=== PATIENT | female | born 1965 | race Hispanic/Latino ===

== ENCOUNTER 2020-09-29 12:54 | Inpatient (IN) | payer MEDICAID, SELFPAY ==
[~2020-09-29] VITALS: Ht 160 cm; Wt 109.6 kg
[2020-09-29] MEDS ORDERED: AZITHROMYCIN 250 MG TABLET PO ONE ×2 (13:30→14:47)
[2020-09-29] MEDS ORDERED: ALBUTEROL INHALER 90MCG/INH IH PRN (13:30)
[2020-09-29] MEDS ORDERED: ACETAMINOPHEN WITH CODEINE 1 TAB TAB PO ONE (13:30)
[2020-09-29] MEDS ORDERED: CEFTRIAXONE 1G VIAL IVP ONE (13:30)
[2020-09-29 13:33] LABS: BASOPHILS % (AUTO) 0.2 % (0.0-5.0); HEMATOCRIT 37.9 % (36-48); LYMPHOCYTES % (AUTO) 14.1 % (21.0-51.0); MEAN CORPUSCULAR HEMOGLOBIN 29.8 pg (27.0-33.0); MEAN CORPUSCULAR HGB CONC 33.8 g/dL (32.0-36.0); MEAN CORPUSCULAR VOLUME 88.3 fL (79-99); NEUTROPHILS % (AUTO) 78.4 % (40.0-77.0); PLATELET COUNT (AUTO) 142 K/uL (130-400); RED BLOOD CELL COUNT(AUTO) 4.29 MIL/uL (4.00-5.50); RED CELL DISTRIBUTION WIDTH 13.5 % (11.0-15.5); WHITE BLOOD COUNT (AUTO) 6.6 K/uL (4.8-10.8)
[2020-09-29 13:40] LABS: POTASSIUM 3.5 mmol/L (3.5-5.1)
[2020-09-29 13:42] LABS: INR 1.04 (0.85-1.15); PROTHROMBIN TIME 11.3 SEC (9.6-11.6)
[2020-09-29 13:43] LABS: PARTIAL THROMBOPLASTIN TIME 31.3 SEC (26.3-35.5)
[2020-09-29 13:45] LABS: ALBUMIN 3.2 g/dL (3.5-5.0); BILIRUBIN,TOTAL 0.6 mg/dL (0.2-1.0); TOTAL PROTEIN, SERUM 6.7 g/dL (6.0-8.3)
[2020-09-29] MEDS ORDERED: ATROPINE 1MG SYG IVP ONE (14:14)
[2020-09-29 14:29] LABS: ABG BASE EXCESS -0.7 mmol/L (-2.0-3.0); ABG HCO3 20.7 mmol/L (21.0-28.0); ABG OXYGEN SATURATION 88.4 % (95.0-99.0); ABG PCO2 27 mmHg (32-45)
[2020-09-29] MEDS ORDERED: ACETAMINOPHEN WITH CODEINE 1 TAB TAB ONE (14:36)
[2020-09-29] MEDS ORDERED: 0.9%NACL 100ML 100 ML ONE ×2 (14:36→14:46)
[2020-09-29] MEDS ORDERED: CEFTRIAXONE 1G VIAL ONE (14:45)
[2020-09-29] MEDS ORDERED: ACETAMINOPHEN 325 MG TAB PO PRN (15:00)
[2020-09-29] MEDS ORDERED: ERGOCALCIFEROL (VITAMIN D2) 50,000 UNIT CAPSULE PO ONE (15:00)
[2020-09-29] MEDS ORDERED: ONDANSETRON 4MG INJ IV PRN (15:00)
[2020-09-29] MEDS: CEFTRIAXONE 1G VIAL ONE ×2 (15:18→16:29)
[2020-09-29] MEDS: CEFTRIAXONE 1G VIAL IVP SCH (16:24)
[2020-09-29] MEDS: DOXYCYCLINE HYCLATE 100 MG TABLET PO SCH (16:28)
[2020-09-29] MEDS: FAMOTIDINE 20MG VIAL IV SCH (16:28)
[2020-09-29] MEDS: DEXAMETHASONE SOD PHOSPHATE 4 MG/ML 1ML VIAL IVP SCH (16:28)
[2020-09-29] MEDS ORDERED: DOXYCYCLINE HYCLATE 100 MG TABLET PO ONE (16:31)
[2020-09-29] MEDS ORDERED: FAMOTIDINE 20MG TAB ONE (16:32)
[2020-09-29 17:02] VITALS: BP 113/60
[2020-09-29] MEDS ORDERED: PHARMACY COMMUNICATION***REMDESIVIR ORDER MISC SCH (19:00)
[2020-09-29] MEDS ORDERED: POTASSIUM CHLORIDE 10% ELIXIR 20 MEQ/15 ML UDCUP PO SCH (19:00)
[2020-09-29] MEDS: BARICITINIB (EUA) 2 MG TABLET PO SCH (19:38)
[2020-09-29 20:10] VITALS: BP 113/60
[2020-09-29 20:26] LABS: APPEARANCE,URINE SL CLOUDY (CLEAR); BILIRUBIN,URINE SMALL (NEGATIVE); COLOR,URINE YELLOW (YELLOW); GLUCOSE, URINE (UA) NEGATIVE (NEGATIVE); KETONES,URINE 15 mg/dL (NEGATIVE); LEUKOCYTE ESTERASE ,URINE NEGATIVE (NEGATIVE); NITRATE,URINE POSITIVE (NEGATIVE); OCCULT BLOOD,URINE SMALL (NEGATIVE); PH,URINE 6.5 (5.0-8.0); PROTEIN,URINE >=300 mg/dL (NEGATIVE)
[2020-09-29 20:33] LABS: BACTERIA,URINE Few /HPF (None Seen)
[2020-09-29 20:34] LABS: SQUAMOUS EPITHELIAL CELL,UR Moderate /HPF (0-2)
[2020-09-29 20:35] LABS: MUCUS,URINE Rare LPF (None Seen); OTHER CASTS, URINE MIXED CELL CASTS 1+ /LPF (None Seen)
[2020-09-29 21:28] VITALS: BP 115/63
[2020-09-30 00:04] VITALS: BP 115/63
[2020-09-30] MEDS: CEFTRIAXONE 1G VIAL IVP SCH (02:56)
[2020-09-30 06:11] VITALS: BP 119/71
[2020-09-30] MEDS ORDERED: COMPOUND IV REFRIGERATED 1 EACH IVSOLN MISC PRN (07:30)
[2020-09-30] MEDS ORDERED: REMDESIVIR (EUA) 520 200 MG in 0.9% NACL 250ML 250 ML IV ONE (07:30)
[2020-09-30 07:40] VITALS: BP 141/72
[2020-09-30 08:00] LABS: CRP QUANTITATIVE 113.6 mg/L (0.00-9.0)
[2020-09-30] MEDS: FAMOTIDINE 20MG VIAL IV SCH ×2 (08:56→21:46)
[2020-09-30] MEDS: BARICITINIB (EUA) 2 MG TABLET PO SCH (08:57)
[2020-09-30] MEDS: DOXYCYCLINE HYCLATE 100 MG TABLET PO SCH (08:57)
[2020-09-30] MEDS: ENOXAPARIN SODIUM 40 MG/0.4 ML SYRINGE SQ SCH ×2 (08:59→21:47)
[2020-09-30] MEDS ORDERED: ENOXAPARIN SODIUM 40 MG/0.4 ML SYRINGE SQ SCH (09:00)
[2020-09-30] MEDS ORDERED: ZINC SULFATE 220 CAPSULE PO SCH (09:00)
[2020-09-30] MEDS ORDERED: ASCORBIC ACID 500 MG TAB PO SCH (09:00)
[2020-09-30 09:36] LABS: HEMATOCRIT 36.4 % (36-48); LYMPHOCYTES % (AUTO) 19.6 % (21.0-51.0); MEAN CORPUSCULAR HEMOGLOBIN 29.7 pg (27.0-33.0); MEAN CORPUSCULAR HGB CONC 33.2 g/dL (32.0-36.0); MEAN CORPUSCULAR VOLUME 89.4 fL (79-99); MONOCYTES % (AUTO) 9.8 % (3.0-13.0); NEUTROPHILS % (AUTO) 70.1 % (40.0-77.0); PLATELET COUNT (AUTO) 145 K/uL (130-400); RED BLOOD CELL COUNT(AUTO) 4.07 MIL/uL (4.00-5.50); RED CELL DISTRIBUTION WIDTH 13.6 % (11.0-15.5); WHITE BLOOD COUNT (AUTO) 3.9 K/uL (4.8-10.8)
[2020-09-30 09:59] LABS: ALBUMIN 2.8 g/dL (3.5-5.0); BILIRUBIN,TOTAL 0.4 mg/dL (0.2-1.0); MAGNESIUM 1.9 mg/dL (1.80-2.40); POTASSIUM 3.8 mmol/L (3.5-5.1); TOTAL PROTEIN, SERUM 6.9 g/dL (6.0-8.3)
[2020-09-30 12:50] VITALS: BP 112/67
[2020-09-30 20:44] VITALS: BP 121/67
[2020-09-30] MEDS ORDERED: DOXYCYCLINE HYCLATE 100 MG TABLET PO ONE (21:37)
[2020-09-30] MEDS ORDERED: CEFTRIAXONE 1G VIAL ONE (21:39)
[2020-09-30] MEDS: DEXAMETHASONE SOD PHOSPHATE 4 MG/ML 1ML VIAL IVP SCH (21:46)
[2020-09-30 23:00] VITALS: BP 112/50
[2020-09-30] MEDS: REMDESIVIR LABS MISC SCH (23:34)
[2020-10-01] VITALS (8 sets, daily range): BP systolic 99–136; BP diastolic 36–72
[2020-10-01] MEDS ORDERED: ANAS1TAB49 PO (01:23)
[2020-10-01] MEDS ORDERED: PARO10TA71 PO (01:23)
[2020-10-01] MEDS ORDERED: PARO-37 PO (01:23)
[2020-10-01] MEDS ORDERED: PANT40TA54 PO (01:23)
[2020-10-01 05:09] LABS: CRP QUANTITATIVE 67.4 mg/L (0.00-9.0)
[2020-10-01 05:46] LABS: HEMATOCRIT 35.7 % (36-48); LYMPHOCYTES % (AUTO) 13.2 % (21.0-51.0); MEAN CORPUSCULAR HEMOGLOBIN 29.7 pg (27.0-33.0); MEAN CORPUSCULAR HGB CONC 33.6 g/dL (32.0-36.0); MEAN CORPUSCULAR VOLUME 88.4 fL (79-99); MONOCYTES % (AUTO) 6.5 % (3.0-13.0); NEUTROPHILS % (AUTO) 79.4 % (40.0-77.0); PLATELET COUNT (AUTO) 198 K/uL (130-400); RED BLOOD CELL COUNT(AUTO) 4.04 MIL/uL (4.00-5.50); RED CELL DISTRIBUTION WIDTH 13.7 % (11.0-15.5); WHITE BLOOD COUNT (AUTO) 8.5 K/uL (4.8-10.8)
[2020-10-01 05:54] LABS: ALBUMIN 2.7 g/dL (3.5-5.0); BILIRUBIN,TOTAL 0.3 mg/dL (0.2-1.0); POTASSIUM 4.1 mmol/L (3.5-5.1); TOTAL PROTEIN, SERUM 6.6 g/dL (6.0-8.3)
[2020-10-01] MEDS: INSULIN HUMULIN R 100 UNIT/ML 3ML SQ SCH ×4 (06:02→19:46)
[2020-10-01 06:16] LABS: HEMOGLOBIN A1C 5.8 % (4.0-6.0)
[2020-10-01] MEDS: FAMOTIDINE 20MG VIAL IV SCH ×2 (10:44→19:47)
[2020-10-01] MEDS: BARICITINIB (EUA) 2 MG TABLET PO SCH (11:07)
[2020-10-01] MEDS: ENOXAPARIN SODIUM 40 MG/0.4 ML SYRINGE SQ SCH ×2 (11:07→19:47)
[2020-10-01] MEDS: REMDESIVIR (EUA) 520 100 MG in 0.9% NACL 250ML 250 ML IV SCH (13:08)
[2020-10-01] MEDS: DEXAMETHASONE SOD PHOSPHATE 4 MG/ML 1ML VIAL IVP SCH (14:57)
[2020-10-01] MEDS: REMDESIVIR LABS MISC SCH (19:24)
[2020-10-01] MEDS: PAROXETINE HCL 20 MG TABLET PO SCH (19:47)
[2020-10-02 04:00] VITALS: BP 123/72
[2020-10-02 04:17] LABS: BASOPHILS % (AUTO) 0.2 % (0.0-5.0); HEMATOCRIT 36.5 % (36-48); LYMPHOCYTES % (AUTO) 23.1 % (21.0-51.0); MEAN CORPUSCULAR HEMOGLOBIN 29.8 pg (27.0-33.0); MEAN CORPUSCULAR HGB CONC 32.6 g/dL (32.0-36.0); MEAN CORPUSCULAR VOLUME 91.3 fL (79-99); MONOCYTES % (AUTO) 9.4 % (3.0-13.0); NEUTROPHILS % (AUTO) 66.4 % (40.0-77.0); PLATELET COUNT (AUTO) 211 K/uL (130-400); RED CELL DISTRIBUTION WIDTH 13.4 % (11.0-15.5); WHITE BLOOD COUNT (AUTO) 6.4 K/uL (4.8-10.8)
[2020-10-02 04:36] LABS: CRP QUANTITATIVE 34.2 mg/L (0.00-9.0)
[2020-10-02] MEDS: INSULIN HUMULIN R 100 UNIT/ML 3ML SQ SCH ×4 (05:34→20:22)
[2020-10-02 08:09] VITALS: BP 133/77
[2020-10-02] MEDS ORDERED: ARIMIDEX 1 MG PO SCH (09:00)
[2020-10-02] MEDS: FAMOTIDINE 20MG VIAL IV SCH ×2 (10:22→20:22)
[2020-10-02] MEDS: PAROXETINE HCL 20 MG TABLET PO SCH ×2 (10:23→20:22)
[2020-10-02] MEDS: ENOXAPARIN SODIUM 40 MG/0.4 ML SYRINGE SQ SCH ×2 (10:23→20:23)
[2020-10-02] MEDS: BARICITINIB (EUA) 2 MG TABLET PO SCH (10:23)
[2020-10-02 11:51] VITALS: BP 161/89
[2020-10-02] MEDS: REMDESIVIR (EUA) 520 100 MG in 0.9% NACL 250ML 250 ML IV SCH (13:00)
[2020-10-02 16:58] VITALS: BP 144/63
[2020-10-02] MEDS: DEXAMETHASONE SOD PHOSPHATE 4 MG/ML 1ML VIAL IVP SCH (17:12)
[2020-10-02 20:00] VITALS: BP 123/62
[2020-10-03] VITALS: BP 132/99
[2020-10-03] MEDS ORDERED: LINA145C PO (03:20)
[2020-10-03 04:00] VITALS: BP 128/81
[2020-10-03 04:58] LABS: BASOPHILS % (AUTO) 0.1 % (0.0-5.0); HEMATOCRIT 35.3 % (36-48); LYMPHOCYTES % (AUTO) 12.3 % (21.0-51.0); MEAN CORPUSCULAR HEMOGLOBIN 29.6 pg (27.0-33.0); MEAN CORPUSCULAR HGB CONC 33.4 g/dL (32.0-36.0); MEAN CORPUSCULAR VOLUME 88.5 fL (79-99); NEUTROPHILS % (AUTO) 77.7 % (40.0-77.0); PLATELET COUNT (AUTO) 251 K/uL (130-400); RED BLOOD CELL COUNT(AUTO) 3.99 MIL/uL (4.00-5.50); RED CELL DISTRIBUTION WIDTH 13.2 % (11.0-15.5); WHITE BLOOD COUNT (AUTO) 9.1 K/uL (4.8-10.8)
[2020-10-03] MEDS: REMDESIVIR LABS MISC SCH (05:08)
[2020-10-03 05:18] LABS: ALBUMIN 2.7 g/dL (3.5-5.0); BILIRUBIN,TOTAL 0.5 mg/dL (0.2-1.0); CRP QUANTITATIVE 22.5 mg/L (0.00-9.0); POTASSIUM 3.4 mmol/L (3.5-5.1); TOTAL PROTEIN, SERUM 6.2 g/dL (6.0-8.3)
[2020-10-03] MEDS: INSULIN HUMULIN R 100 UNIT/ML 3ML SQ SCH ×4 (06:34→20:09)
[2020-10-03 08:00] VITALS: BP 112/72
[2020-10-03] MEDS: PAROXETINE HCL 20 MG TABLET PO SCH ×2 (08:06→19:58)
[2020-10-03] MEDS: BARICITINIB (EUA) 2 MG TABLET PO SCH (08:06)
[2020-10-03] MEDS: FAMOTIDINE 20MG VIAL IV SCH (08:06)
[2020-10-03] MEDS: ENOXAPARIN SODIUM 40 MG/0.4 ML SYRINGE SQ SCH ×2 (08:07→19:58)
[2020-10-03] MEDS ORDERED: GUAIFENESIN-DM 200/20 MG 10 ML PO PRN (10:30)
[2020-10-03] MEDS ORDERED: HYDROMORPHONE HCL 2 MG TAB PO PRN (10:30)
[2020-10-03 12:00] VITALS: BP 109/63
[2020-10-03] MEDS: REMDESIVIR (EUA) 520 100 MG in 0.9% NACL 250ML 250 ML IV SCH (13:03)
[2020-10-03] MEDS ORDERED: POTASSIUM CHLORIDE 20MEQ/100ML 100 ML IV PRN (13:30)
[2020-10-03] MEDS ORDERED: POTASSIUM CHLORIDE 10% ELIXIR 20 MEQ/15 ML UDCUP PO PRN (13:30)
[2020-10-03] MEDS ORDERED: LIDOCAINE HCL-MPF 1% 2ML VIAL IV PRN (13:30)
[2020-10-03] MEDS ORDERED: MAGNESIUM 2GM PREMIX 50ML 50 ML IV PRN (13:30)
[2020-10-03] MEDS: DEXAMETHASONE SOD PHOSPHATE 4 MG/ML 1ML VIAL IVP SCH (14:45)
[2020-10-03 16:00] VITALS: BP 123/77
[2020-10-03] MEDS: KCL 20 MEQ ERTAB PO PRN ×2 (16:45→19:59)
[2020-10-03 20:00] VITALS: BP 113/56
[2020-10-03] MEDS: ZOSYN 3.375GM+NS 50ML 50 ML IV ONE ×2 (20:33→20:36)
[2020-10-03] MEDS: ZOSYN 3.375GM +NS 50ML IV SCH (20:36)
[2020-10-03] MEDS: 0.9%NACL 50ML IV SCH (20:36)
[2020-10-04] VITALS: BP 148/78
[2020-10-04 04:00] VITALS: BP 138/79
[2020-10-04] MEDS: 0.9%NACL 50ML IV SCH ×3 (04:00→21:45)
[2020-10-04] MEDS: ZOSYN 3.375GM +NS 50ML IV SCH ×3 (04:00→21:45)
[2020-10-04 05:26] LABS: BASOPHILS % (AUTO) 0.1 % (0.0-5.0); HEMATOCRIT 36.6 % (36-48); LYMPHOCYTES % (AUTO) 8.9 % (21.0-51.0); MEAN CORPUSCULAR HEMOGLOBIN 29.9 pg (27.0-33.0); MEAN CORPUSCULAR HGB CONC 33.6 g/dL (32.0-36.0); MEAN CORPUSCULAR VOLUME 88.8 fL (79-99); MONOCYTES % (AUTO) 6.4 % (3.0-13.0); NEUTROPHILS % (AUTO) 83.5 % (40.0-77.0); PLATELET COUNT (AUTO) 267 K/uL (130-400); RED BLOOD CELL COUNT(AUTO) 4.12 MIL/uL (4.00-5.50)
[2020-10-04 05:39] LABS: MAGNESIUM 1.8 mg/dL (1.80-2.40); POTASSIUM 3.8 mmol/L (3.5-5.1)
[2020-10-04] MEDS: INSULIN HUMULIN R 100 UNIT/ML 3ML SQ SCH ×4 (05:51→19:49)
[2020-10-04] MEDS: REMDESIVIR LABS MISC SCH (06:00)
[2020-10-04 06:56] LABS: ALBUMIN 2.7 g/dL (3.5-5.0); BILIRUBIN,DIRECT 0.2 mg/dL (0.0-0.3); BILIRUBIN,TOTAL 0.8 mg/dL (0.2-1.0); TOTAL PROTEIN, SERUM 6.3 g/dL (6.0-8.3)
[2020-10-04 08:00] VITALS: BP 122/63
[2020-10-04] MEDS: BARICITINIB (EUA) 2 MG TABLET PO SCH (09:00)
[2020-10-04] MEDS: PANTOPRAZOLE 40 MG TAB DR PO SCH (09:39)
[2020-10-04] MEDS: PAROXETINE HCL 20 MG TABLET PO SCH ×2 (09:39→19:47)
[2020-10-04] MEDS: ENOXAPARIN SODIUM 40 MG/0.4 ML SYRINGE SQ SCH ×2 (09:40→19:49)
[2020-10-04] MEDS ORDERED: LACTULOSE 20 GM/30 ML UDCUP PO PRN (10:30)
[2020-10-04] MEDS: LACTULOSE 20 GM/30 ML UDCUP PO PRN ×2 (10:32→21:47)
[2020-10-04 12:00] VITALS: BP 114/71
[2020-10-04] MEDS: GLYCERIN ADULT SUPP.RECT RC SCH (12:00)
[2020-10-04 16:00] VITALS: BP 104/74
[2020-10-04] MEDS: REMDESIVIR (EUA) 520 100 MG in 0.9% NACL 250ML 250 ML IV SCH (18:03)
[2020-10-04] MEDS: DEXAMETHASONE SOD PHOSPHATE 4 MG/ML 1ML VIAL IVP SCH (18:03)
[2020-10-04 19:55] VITALS: BP 115/54
[2020-10-05] VITALS (20 sets, daily range): BP systolic 95–154; BP diastolic 21–86
[2020-10-05] MEDS: ZOSYN 3.375GM +NS 50ML IV SCH ×3 (05:38→21:11)
[2020-10-05] MEDS: 0.9%NACL 50ML IV SCH ×3 (05:38→21:11)
[2020-10-05] MEDS: INSULIN HUMULIN R 100 UNIT/ML 3ML SQ SCH ×4 (05:48→21:00)
[2020-10-05] MEDS ORDERED: PHARMACY COMMUNICATION MISC SCH (09:30)
[2020-10-05] MEDS: PAROXETINE HCL 20 MG TABLET PO SCH ×2 (09:49→21:10)
[2020-10-05] MEDS: ENOXAPARIN SODIUM 40 MG/0.4 ML SYRINGE SQ SCH ×2 (09:49→21:11)
[2020-10-05] MEDS: PANTOPRAZOLE 40 MG TAB DR PO SCH (09:49)
[2020-10-05] MEDS: BARICITINIB (EUA) 2 MG TABLET PO SCH (11:22)
[2020-10-05] MEDS: GLYCERIN ADULT SUPP.RECT RC SCH (12:00)
[2020-10-05] MEDS: REMDESIVIR (EUA) 520 100 MG in 0.9% NACL 250ML 250 ML IV SCH (12:24)
[2020-10-05] MEDS: DEXAMETHASONE SOD PHOSPHATE 4 MG/ML 1ML VIAL IVP SCH (14:25)
[2020-10-05] MEDS ORDERED: 0.9%NACL 100ML 100 ML ONE (20:54)
[2020-10-05] MEDS: ACETAMINOPHEN 325 MG TAB PO PRN (21:10)
[2020-10-06] VITALS (20 sets, daily range): BP systolic 100–137; BP diastolic 59–80
[2020-10-06] MEDS: INSULIN HUMULIN R 100 UNIT/ML 3ML SQ SCH ×4 (05:11→21:00)
[2020-10-06] MEDS: 0.9%NACL 50ML IV SCH (05:52)
[2020-10-06] MEDS: ZOSYN 3.375GM +NS 50ML IV SCH (05:52)
[2020-10-06 07:36] LABS: HEMATOCRIT 36.6 % (36-48); MEAN CORPUSCULAR HEMOGLOBIN 29.7 pg (27.0-33.0); MEAN CORPUSCULAR HGB CONC 32.8 g/dL (32.0-36.0); MEAN CORPUSCULAR VOLUME 90.6 fL (79-99); PLATELET COUNT (AUTO) 348 K/uL (130-400); RED BLOOD CELL COUNT(AUTO) 4.04 MIL/uL (4.00-5.50); RED CELL DISTRIBUTION WIDTH 13.9 % (11.0-15.5); WHITE BLOOD COUNT (AUTO) 18.1 K/uL (4.8-10.8)
[2020-10-06 07:45] LABS: MAGNESIUM 2.1 mg/dL (1.80-2.40); POTASSIUM 3.9 mmol/L (3.5-5.1)
[2020-10-06 08:08] LABS: EOSINOPHILS % (MANUAL) 1 % (1-6); LYMPHOCYTES % (MANUAL) 6 % (22-44); SEGMENTED NEUTROPHILS % 93 % (40-70)
[2020-10-06 08:09] LABS: MAN.DIFF COMMENT-IMPRESSION MANUAL DIFFERENTIAL; PLATELET MORPHOLOGY COMMENT ADEQUATE
[2020-10-06] MEDS: PAROXETINE HCL 20 MG TABLET PO SCH ×2 (10:00→22:09)
[2020-10-06] MEDS: PANTOPRAZOLE 40 MG TAB DR PO SCH (10:01)
[2020-10-06] MEDS: BARICITINIB (EUA) 2 MG TABLET PO SCH (10:01)
[2020-10-06] MEDS: ENOXAPARIN SODIUM 40 MG/0.4 ML SYRINGE SQ SCH ×2 (10:01→22:09)
[2020-10-06] MEDS: ACETAMINOPHEN 325 MG TAB PO PRN (10:20)
[2020-10-06] MEDS ORDERED: PHARMACY COMMUNICATION MISC SCH (10:30)
[2020-10-06] MEDS: GLYCERIN ADULT SUPP.RECT RC SCH (11:29)
[2020-10-06] MEDS: LINEZOLID 600 MG/ISO-OSM 300 ML IV SCH ×2 (11:35→22:10)
[2020-10-06] MEDS: FUROSEMIDE 20MG VIAL IV SCH ×2 (11:35→22:10)
[2020-10-06] MEDS: MEROPENEM 1 GM VIAL IVP SCH ×2 (11:35→18:38)
[2020-10-06 12:26] LABS: ALBUMIN 2.5 g/dL (3.5-5.0); BILIRUBIN,DIRECT 0.3 mg/dL (0.0-0.3); BILIRUBIN,TOTAL 0.7 mg/dL (0.2-1.0); TOTAL PROTEIN, SERUM 5.6 g/dL (6.0-8.3)
[2020-10-06] MEDS: REMDESIVIR (EUA) 520 100 MG in 0.9% NACL 250ML 250 ML IV SCH (13:32)
[2020-10-06] MEDS: DEXAMETHASONE SOD PHOSPHATE 4 MG/ML 1ML VIAL IVP SCH (16:44)
[2020-10-06 17:07] LABS: ABG BASE EXCESS 1.2 mmol/L (-2.0-3.0); ABG HCO3 25.3 mmol/L (21.0-28.0); ABG OXYGEN SATURATION 91.2 % (95.0-99.0); ABG PCO2 39 mmHg (32-45)
[2020-10-07] VITALS (20 sets, daily range): BP systolic 86–122; BP diastolic 53–87
[2020-10-07] MEDS: MEROPENEM 1 GM VIAL IVP SCH ×3 (03:08→18:11)
[2020-10-07] MEDS: DEXAMETHASONE SOD PHOSPHATE 4 MG/ML 1ML VIAL IVP SCH ×2 (03:08→14:24)
[2020-10-07 04:27] LABS: BASOPHILS % (AUTO) 0.1 % (0.0-5.0); EOSINOPHILS % (AUTO) 0.1 % (0.0-8.0); HEMATOCRIT 34.2 % (36-48); LYMPHOCYTES % (AUTO) 4.8 % (21.0-51.0); MEAN CORPUSCULAR HEMOGLOBIN 29.9 pg (27.0-33.0); MEAN CORPUSCULAR HGB CONC 33.6 g/dL (32.0-36.0); MEAN CORPUSCULAR VOLUME 88.8 fL (79-99); MONOCYTES % (AUTO) 2.7 % (3.0-13.0); NEUTROPHILS % (AUTO) 90.9 % (40.0-77.0); PLATELET COUNT (AUTO) 366 K/uL (130-400); RED BLOOD CELL COUNT(AUTO) 3.85 MIL/uL (4.00-5.50); RED CELL DISTRIBUTION WIDTH 13.9 % (11.0-15.5); WHITE BLOOD COUNT (AUTO) 17.2 K/uL (4.8-10.8)
[2020-10-07 04:48] LABS: ALBUMIN 2.3 g/dL (3.5-5.0); BILIRUBIN,TOTAL 0.6 mg/dL (0.2-1.0); CREATININE 1.1 mg/dL (0.5-1.5); POTASSIUM 3.9 mmol/L (3.5-5.1); TOTAL PROTEIN, SERUM 6.4 g/dL (6.0-8.3)
[2020-10-07 05:18] LABS: CRP QUANTITATIVE 256.5 mg/L (0.00-9.0)
[2020-10-07] MEDS: INSULIN HUMULIN R 100 UNIT/ML 3ML SQ SCH ×4 (06:39→21:00)
[2020-10-07] MEDS: LINEZOLID 600 MG/ISO-OSM 300 ML IV SCH ×2 (09:59→22:30)
[2020-10-07] MEDS: PAROXETINE HCL 20 MG TABLET PO SCH ×2 (09:59→22:30)
[2020-10-07] MEDS: PANTOPRAZOLE 40 MG TAB DR PO SCH (09:59)
[2020-10-07] MEDS: ENOXAPARIN SODIUM 40 MG/0.4 ML SYRINGE SQ SCH ×2 (10:00→22:30)
[2020-10-07] MEDS: BARICITINIB (EUA) 2 MG TABLET PO SCH (10:03)
[2020-10-07] MEDS: REMDESIVIR (EUA) 520 100 MG in 0.9% NACL 250ML 250 ML IV SCH (13:05)
[2020-10-08] VITALS (23 sets, daily range): BP systolic 95–123; BP diastolic 49–84
[2020-10-08] MEDS ORDERED: HYDROXYZINE 25 MG TABLET PO ONE (03:00)
[2020-10-08] MEDS: MEROPENEM 1 GM VIAL IVP SCH ×3 (03:16→18:37)
[2020-10-08] MEDS: DEXAMETHASONE SOD PHOSPHATE 4 MG/ML 1ML VIAL IVP SCH ×2 (03:17→14:15)
[2020-10-08 05:21] LABS: BASOPHILS % (AUTO) 0.2 % (0.0-5.0); HEMATOCRIT 35.5 % (36-48); LYMPHOCYTES % (AUTO) 4.2 % (21.0-51.0); MEAN CORPUSCULAR HEMOGLOBIN 29.2 pg (27.0-33.0); MEAN CORPUSCULAR VOLUME 88.5 fL (79-99); MONOCYTES % (AUTO) 4.4 % (3.0-13.0); PLATELET COUNT (AUTO) 434 K/uL (130-400); RED BLOOD CELL COUNT(AUTO) 4.01 MIL/uL (4.00-5.50); RED CELL DISTRIBUTION WIDTH 13.9 % (11.0-15.5); WHITE BLOOD COUNT (AUTO) 19.6 K/uL (4.8-10.8)
[2020-10-08 05:33] LABS: ALBUMIN 2.3 g/dL (3.5-5.0); BILIRUBIN,TOTAL 0.5 mg/dL (0.2-1.0); POTASSIUM 4.1 mmol/L (3.5-5.1); TOTAL PROTEIN, SERUM 6.6 g/dL (6.0-8.3)
[2020-10-08] MEDS: INSULIN HUMULIN R 100 UNIT/ML 3ML SQ SCH ×4 (06:25→20:24)
[2020-10-08] MEDS: PANTOPRAZOLE 40 MG TAB DR PO SCH (09:13)
[2020-10-08] MEDS: ENOXAPARIN SODIUM 40 MG/0.4 ML SYRINGE SQ SCH ×2 (09:13→20:25)
[2020-10-08] MEDS: BARICITINIB (EUA) 2 MG TABLET PO SCH (09:13)
[2020-10-08] MEDS: PAROXETINE HCL 20 MG TABLET PO SCH ×2 (09:13→20:24)
[2020-10-08] MEDS: LINEZOLID 600 MG/ISO-OSM 300 ML IV SCH ×2 (11:19→23:31)
[2020-10-08] MEDS: REMDESIVIR (EUA) 520 100 MG in 0.9% NACL 250ML 250 ML IV SCH (14:16)
[2020-10-08 14:25] LABS: ABG BASE EXCESS 0.5 mmol/L (-2.0-3.0); ABG HCO3 24.7 mmol/L (21.0-28.0); ABG PCO2 38 mmHg (32-45)
[2020-10-08 14:34] LABS: CREATININE 1.2 mg/dL (0.5-1.5); POTASSIUM 4.2 mmol/L (3.5-5.1)
[2020-10-08 14:43] LABS: MAGNESIUM 2.4 mg/dL (1.80-2.40)
[2020-10-09] VITALS (23 sets, daily range): BP systolic 99–120; BP diastolic 50–68
[2020-10-09] MEDS: MEROPENEM 1 GM VIAL IVP SCH ×3 (02:30→17:42)
[2020-10-09] MEDS: DEXAMETHASONE SOD PHOSPHATE 4 MG/ML 1ML VIAL IVP SCH ×2 (02:31→16:00)
[2020-10-09 04:57] LABS: BASOPHILS % (AUTO) 0.1 % (0.0-5.0); HEMATOCRIT 34.9 % (36-48); LYMPHOCYTES % (AUTO) 3.6 % (21.0-51.0); MEAN CORPUSCULAR HEMOGLOBIN 29.5 pg (27.0-33.0); MEAN CORPUSCULAR HGB CONC 32.1 g/dL (32.0-36.0); MEAN CORPUSCULAR VOLUME 91.8 fL (79-99); MONOCYTES % (AUTO) 6.5 % (3.0-13.0); NEUTROPHILS % (AUTO) 88.1 % (40.0-77.0); PLATELET COUNT (AUTO) 435 K/uL (130-400); RED CELL DISTRIBUTION WIDTH 14.3 % (11.0-15.5); WHITE BLOOD COUNT (AUTO) 20.8 K/uL (4.8-10.8)
[2020-10-09 05:14] LABS: ALBUMIN 2.3 g/dL (3.5-5.0); BILIRUBIN,TOTAL 0.4 mg/dL (0.2-1.0); POTASSIUM 4.5 mmol/L (3.5-5.1); TOTAL PROTEIN, SERUM 6.1 g/dL (6.0-8.3)
[2020-10-09] MEDS: INSULIN HUMULIN R 100 UNIT/ML 3ML SQ SCH ×4 (05:54→20:07)
[2020-10-09 06:56] LABS: ABG BASE EXCESS 3.9 mmol/L (-2.0-3.0); ABG HCO3 29.4 mmol/L (21.0-28.0); ABG OXYGEN SATURATION 90.4 % (95.0-99.0); ABG PCO2 48 mmHg (32-45)
[2020-10-09] MEDS: PANTOPRAZOLE 40 MG TAB DR PO SCH (08:54)
[2020-10-09] MEDS: ENOXAPARIN SODIUM 40 MG/0.4 ML SYRINGE SQ SCH (08:54)
[2020-10-09] MEDS: BARICITINIB (EUA) 2 MG TABLET PO SCH (08:54)
[2020-10-09] MEDS: PAROXETINE HCL 20 MG TABLET PO SCH ×2 (08:54→20:04)
[2020-10-09] MEDS: LINEZOLID 600 MG/ISO-OSM 300 ML IV SCH ×2 (11:29→23:09)
[2020-10-09] MEDS ORDERED: ALBUMIN (HUMAN) 5% 250 ML IV SCH (12:00)
[2020-10-09] MEDS ORDERED: FUROSEMIDE 40MG VIAL IV SCH (12:00)
[2020-10-09] MEDS: REMDESIVIR (EUA) 520 100 MG in 0.9% NACL 250ML 250 ML IV SCH (13:36)
[2020-10-09 13:40] LABS: ABG BASE EXCESS 7.8 mmol/L (-2.0-3.0); ABG HCO3 32.2 mmol/L (21.0-28.0); ABG OXYGEN SATURATION 92.3 % (95.0-99.0); ABG PCO2 44 mmHg (32-45)
[2020-10-09] MEDS: ENOXAPARIN SODIUM 60 MG/0.6 ML SQ SCH (20:06)
[2020-10-10] VITALS (23 sets, daily range): BP systolic 100–134; BP diastolic 55–73
[2020-10-10] MEDS: MEROPENEM 1 GM VIAL IVP SCH ×3 (03:02→17:32)
[2020-10-10] MEDS: DEXAMETHASONE SOD PHOSPHATE 4 MG/ML 1ML VIAL IVP SCH ×2 (03:03→15:30)
[2020-10-10 04:59] LABS: BASOPHILS % (AUTO) 0.1 % (0.0-5.0); HEMATOCRIT 34.6 % (36-48); LYMPHOCYTES % (AUTO) 3.3 % (21.0-51.0); MEAN CORPUSCULAR HEMOGLOBIN 29.4 pg (27.0-33.0); MEAN CORPUSCULAR HGB CONC 32.4 g/dL (32.0-36.0); MEAN CORPUSCULAR VOLUME 90.8 fL (79-99); MONOCYTES % (AUTO) 7.4 % (3.0-13.0); NEUTROPHILS % (AUTO) 87.7 % (40.0-77.0); PLATELET COUNT (AUTO) 445 K/uL (130-400); RED BLOOD CELL COUNT(AUTO) 3.81 MIL/uL (4.00-5.50); RED CELL DISTRIBUTION WIDTH 14.1 % (11.0-15.5); WHITE BLOOD COUNT (AUTO) 21.8 K/uL (4.8-10.8)
[2020-10-10 05:19] LABS: ALBUMIN 2.5 g/dL (3.5-5.0); BILIRUBIN,TOTAL 0.5 mg/dL (0.2-1.0); CRP QUANTITATIVE 51.6 mg/L (0.00-9.0); POTASSIUM 4.5 mmol/L (3.5-5.1); TOTAL PROTEIN, SERUM 6.1 g/dL (6.0-8.3)
[2020-10-10] MEDS: INSULIN HUMULIN R 100 UNIT/ML 3ML SQ SCH ×4 (07:30→20:35)
[2020-10-10] MEDS: LINEZOLID 600 MG/ISO-OSM 300 ML IV SCH ×2 (10:38→22:28)
[2020-10-10] MEDS: BARICITINIB (EUA) 2 MG TABLET PO SCH (10:38)
[2020-10-10] MEDS: ENOXAPARIN SODIUM 60 MG/0.6 ML SQ SCH ×2 (10:41→20:34)
[2020-10-10] MEDS: PANTOPRAZOLE 40 MG TAB DR PO SCH (10:41)
[2020-10-10] MEDS: PAROXETINE HCL 20 MG TABLET PO SCH ×2 (10:45→20:34)
[2020-10-11] VITALS (23 sets, daily range): BP systolic 11–155; BP diastolic 49–95
[2020-10-11] MEDS: MEROPENEM 1 GM VIAL IVP SCH ×3 (03:08→17:57)
[2020-10-11] MEDS: DEXAMETHASONE SOD PHOSPHATE 4 MG/ML 1ML VIAL IVP SCH ×2 (03:09→14:00)
[2020-10-11 04:53] LABS: BASOPHILS % (AUTO) 0.1 % (0.0-5.0); EOSINOPHILS % (AUTO) 0.1 % (0.0-8.0); HEMATOCRIT 36.2 % (36-48); LYMPHOCYTES % (AUTO) 4.6 % (21.0-51.0); MEAN CORPUSCULAR HEMOGLOBIN 28.7 pg (27.0-33.0); MEAN CORPUSCULAR HGB CONC 31.2 g/dL (32.0-36.0); MEAN CORPUSCULAR VOLUME 91.9 fL (79-99); MONOCYTES % (AUTO) 6.4 % (3.0-13.0); NEUTROPHILS % (AUTO) 87.4 % (40.0-77.0); PLATELET COUNT (AUTO) 446 K/uL (130-400); RED BLOOD CELL COUNT(AUTO) 3.94 MIL/uL (4.00-5.50); RED CELL DISTRIBUTION WIDTH 13.7 % (11.0-15.5); WHITE BLOOD COUNT (AUTO) 18.7 K/uL (4.8-10.8)
[2020-10-11 05:19] LABS: ALBUMIN 2.5 g/dL (3.5-5.0); BILIRUBIN,TOTAL 0.6 mg/dL (0.2-1.0); CRP QUANTITATIVE 38.4 mg/L (0.00-9.0); POTASSIUM 4.6 mmol/L (3.5-5.1)
[2020-10-11] MEDS: INSULIN HUMULIN R 100 UNIT/ML 3ML SQ SCH ×4 (06:02→21:00)
[2020-10-11] MEDS: PANTOPRAZOLE 40 MG TAB DR PO SCH (08:27)
[2020-10-11] MEDS: BARICITINIB (EUA) 2 MG TABLET PO SCH (08:27)
[2020-10-11] MEDS: PAROXETINE HCL 20 MG TABLET PO SCH ×2 (08:27→21:06)
[2020-10-11] MEDS: ENOXAPARIN SODIUM 120 MG/0.8ML SQ SCH ×2 (08:28→21:09)
[2020-10-11] MEDS: LINEZOLID 600 MG/ISO-OSM 300 ML IV SCH ×2 (10:18→22:55)
[2020-10-11] MEDS ORDERED: PHARMACY COMMUNICATION MISC SCH (16:00)
[2020-10-11] MEDS: FLUCONAZOLE 200 MG/NS 100 ML 100 ML IV SCH (16:48)
[2020-10-11] MEDS: NYSTATIN 100000 UNIT/ML 5ML UDCUP PO SCH (21:09)
[2020-10-11] MEDS: ACETAMINOPHEN 325 MG TAB PO PRN (21:31)
[2020-10-12] VITALS (20 sets, daily range): BP systolic 111–142; BP diastolic 68–85
[2020-10-12] MEDS: DEXAMETHASONE SOD PHOSPHATE 4 MG/ML 1ML VIAL IVP SCH ×2 (04:06→15:02)
[2020-10-12] MEDS: MEROPENEM 1 GM VIAL IVP SCH ×3 (04:06→18:58)
[2020-10-12 05:12] LABS: BASOPHILS % (AUTO) 0.1 % (0.0-5.0); EOSINOPHILS % (AUTO) 0.1 % (0.0-8.0); HEMATOCRIT 38.1 % (36-48); MEAN CORPUSCULAR HEMOGLOBIN 29.5 pg (27.0-33.0); MONOCYTES % (AUTO) 5.6 % (3.0-13.0); NEUTROPHILS % (AUTO) 86.8 % (40.0-77.0); PLATELET COUNT (AUTO) 493 K/uL (130-400); RED BLOOD CELL COUNT(AUTO) 4.14 MIL/uL (4.00-5.50); RED CELL DISTRIBUTION WIDTH 13.8 % (11.0-15.5); WHITE BLOOD COUNT (AUTO) 20.7 K/uL (4.8-10.8)
[2020-10-12 05:58] LABS: ALBUMIN 2.6 g/dL (3.5-5.0); BILIRUBIN,TOTAL 0.7 mg/dL (0.2-1.0); CRP QUANTITATIVE 30.8 mg/L (0.00-9.0); POTASSIUM 4.7 mmol/L (3.5-5.1); TOTAL PROTEIN, SERUM 6.2 g/dL (6.0-8.3)
[2020-10-12] MEDS: INSULIN HUMULIN R 100 UNIT/ML 3ML SQ SCH ×4 (06:22→21:00)
[2020-10-12] MEDS: PANTOPRAZOLE 40 MG TAB DR PO SCH (08:47)
[2020-10-12] MEDS: ENOXAPARIN SODIUM 120 MG/0.8ML SQ SCH (08:49)
[2020-10-12] MEDS: PAROXETINE HCL 20 MG TABLET PO SCH ×2 (08:49→21:00)
[2020-10-12] MEDS: NYSTATIN 100000 UNIT/ML 5ML UDCUP PO SCH ×2 (08:49→21:01)
[2020-10-12] MEDS: FLUCONAZOLE 200 MG/NS 100 ML 100 ML IV SCH (08:49)
[2020-10-12] MEDS: BARICITINIB (EUA) 2 MG TABLET PO SCH (10:02)
[2020-10-12] MEDS: LINEZOLID 600 MG/ISO-OSM 300 ML IV SCH ×2 (11:58→23:14)
[2020-10-12] MEDS: LACTULOSE 20 GM/30 ML UDCUP PO PRN (16:17)
[2020-10-12] MEDS: WATER FOR INJECTION,STERILE 40 ML, VANCOMYCIN 1G 2 GM PO SCH ×2 (21:00)
[2020-10-12] MEDS: METRONIDAZOLE 500 MG TABLET PO SCH (21:00)
[2020-10-12] MEDS: SOLU-MEDROL 40MG VIAL IVP SCH (21:00)
[2020-10-12] MEDS: ENOXAPARIN SODIUM 60 MG/0.6 ML SQ SCH (21:02)
[2020-10-13] VITALS (22 sets, daily range): BP systolic 102–141; BP diastolic 69–92
[2020-10-13] MEDS: MEROPENEM 1 GM VIAL IVP SCH ×3 (02:51→18:03)
[2020-10-13 05:14] LABS: BASOPHILS % (AUTO) 0.2 % (0.0-5.0); HEMATOCRIT 40.4 % (36-48); LYMPHOCYTES % (AUTO) 5.5 % (21.0-51.0); MEAN CORPUSCULAR HGB CONC 31.9 g/dL (32.0-36.0); MEAN CORPUSCULAR VOLUME 90.8 fL (79-99); MONOCYTES % (AUTO) 3.2 % (3.0-13.0); NEUTROPHILS % (AUTO) 88.7 % (40.0-77.0); PLATELET COUNT (AUTO) 543 K/uL (130-400); RED BLOOD CELL COUNT(AUTO) 4.45 MIL/uL (4.00-5.50); RED CELL DISTRIBUTION WIDTH 13.7 % (11.0-15.5); WHITE BLOOD COUNT (AUTO) 19.3 K/uL (4.8-10.8)
[2020-10-13 05:31] LABS: PLATELET MORPHOLOGY PLT CLUMPS PRESENT
[2020-10-13 05:36] LABS: CREATININE 1.1 mg/dL (0.5-1.5); CRP QUANTITATIVE 19.4 mg/L (0.00-9.0); POTASSIUM 5.6 mmol/L (3.5-5.1)
[2020-10-13] MEDS: INSULIN HUMULIN R 100 UNIT/ML 3ML SQ SCH ×4 (07:13→21:00)
[2020-10-13] MEDS: PAROXETINE HCL 20 MG TABLET PO SCH ×2 (09:40→21:11)
[2020-10-13] MEDS: FLUCONAZOLE 200 MG/NS 100 ML 100 ML IV SCH (09:40)
[2020-10-13] MEDS: PANTOPRAZOLE 40 MG TAB DR PO SCH (09:40)
[2020-10-13] MEDS: NYSTATIN 100000 UNIT/ML 5ML UDCUP PO SCH ×2 (09:40→21:10)
[2020-10-13] MEDS: SOLU-MEDROL 40MG VIAL IVP SCH ×2 (09:40→21:11)
[2020-10-13] MEDS: METRONIDAZOLE 500 MG TABLET PO SCH ×3 (09:40→21:11)
[2020-10-13] MEDS: ENOXAPARIN SODIUM 60 MG/0.6 ML SQ SCH ×2 (09:41→21:09)
[2020-10-13] MEDS: LINEZOLID 600 MG/ISO-OSM 300 ML IV SCH ×2 (09:45→23:26)
[2020-10-13] MEDS: BARICITINIB (EUA) 2 MG TABLET PO SCH (09:45)
[2020-10-13] MEDS: WATER FOR INJECTION,STERILE 40 ML, VANCOMYCIN 1G 2 GM PO SCH ×8 (09:46→21:10)
[2020-10-13] MEDS ORDERED: KAYEXALATE 15GM/60ML PO STA (11:07)
[2020-10-13] MEDS ORDERED: CALCIUM GLUC 1GM 1 GM in 0.9%NACL 100ML 100 ML IV ONE (11:30)
[2020-10-13] MEDS ORDERED: CALCIUM GLUC 1GM/10ML VIAL IV SCH (11:30)
[2020-10-13 11:45] LABS: CREATININE 1.1 mg/dL (0.5-1.5); POTASSIUM 5.9 mmol/L (3.5-5.1)
[2020-10-13] MEDS ORDERED: KAYEXALATE 15GM/60ML ONE (14:20)
[2020-10-13] MEDS: BUSPIRONE HCL 5 MG TABLET PO SCH (21:11)
[2020-10-14] VITALS (17 sets, daily range): BP systolic 104–131; BP diastolic 67–93
[2020-10-14] MEDS: MEROPENEM 1 GM VIAL IVP SCH ×3 (02:26→18:06)
[2020-10-14 05:06] LABS: BASOPHILS % (AUTO) 0.1 % (0.0-5.0); HEMATOCRIT 39.1 % (36-48); LYMPHOCYTES % (AUTO) 6.3 % (21.0-51.0); MEAN CORPUSCULAR HEMOGLOBIN 29.3 pg (27.0-33.0); MEAN CORPUSCULAR HGB CONC 31.7 g/dL (32.0-36.0); MEAN CORPUSCULAR VOLUME 92.4 fL (79-99); MONOCYTES % (AUTO) 3.8 % (3.0-13.0); NEUTROPHILS % (AUTO) 88.3 % (40.0-77.0); PLATELET COUNT (AUTO) 483 K/uL (130-400); RED BLOOD CELL COUNT(AUTO) 4.23 MIL/uL (4.00-5.50); RED CELL DISTRIBUTION WIDTH 13.9 % (11.0-15.5); WHITE BLOOD COUNT (AUTO) 21.6 K/uL (4.8-10.8)
[2020-10-14 05:17] LABS: CREATININE 1.1 mg/dL (0.5-1.5); CRP QUANTITATIVE 12.9 mg/L (0.00-9.0); POTASSIUM 5.7 mmol/L (3.5-5.1)
[2020-10-14] MEDS: INSULIN HUMULIN R 100 UNIT/ML 3ML SQ SCH ×4 (06:18→19:52)
[2020-10-14] MEDS: PAROXETINE HCL 20 MG TABLET PO SCH ×2 (09:15→20:23)
[2020-10-14] MEDS: PANTOPRAZOLE 40 MG TAB DR PO SCH (09:15)
[2020-10-14] MEDS: SOLU-MEDROL 40MG VIAL IVP SCH ×2 (09:16→20:21)
[2020-10-14] MEDS: BUSPIRONE HCL 5 MG TABLET PO SCH ×2 (09:16→20:22)
[2020-10-14] MEDS: ENOXAPARIN SODIUM 60 MG/0.6 ML SQ SCH ×2 (09:16→20:22)
[2020-10-14] MEDS: METRONIDAZOLE 500 MG TABLET PO SCH ×3 (09:16→20:23)
[2020-10-14] MEDS: FLUCONAZOLE 200 MG/NS 100 ML 100 ML IV SCH (09:16)
[2020-10-14] MEDS: NYSTATIN 100000 UNIT/ML 5ML UDCUP PO SCH ×2 (09:16→20:22)
[2020-10-14] MEDS: WATER FOR INJECTION,STERILE 40 ML, VANCOMYCIN 1G 2 GM PO SCH ×8 (09:19→20:24)
[2020-10-14] MEDS: LINEZOLID 600 MG/ISO-OSM 300 ML IV SCH ×2 (10:34→22:38)
[2020-10-15] VITALS (22 sets, daily range): BP systolic 107–160; BP diastolic 58–97
[2020-10-15] MEDS: MEROPENEM 1 GM VIAL IVP SCH ×3 (03:13→17:27)
[2020-10-15 04:29] LABS: BASOPHILS % (AUTO) 0.1 % (0.0-5.0); HEMATOCRIT 35.9 % (36-48); LYMPHOCYTES % (AUTO) 4.5 % (21.0-51.0); MEAN CORPUSCULAR HEMOGLOBIN 29.4 pg (27.0-33.0); MEAN CORPUSCULAR HGB CONC 32.3 g/dL (32.0-36.0); MEAN CORPUSCULAR VOLUME 91.1 fL (79-99); MONOCYTES % (AUTO) 3.6 % (3.0-13.0); NEUTROPHILS % (AUTO) 90.1 % (40.0-77.0); PLATELET COUNT (AUTO) 401 K/uL (130-400); RED BLOOD CELL COUNT(AUTO) 3.94 MIL/uL (4.00-5.50); RED CELL DISTRIBUTION WIDTH 13.7 % (11.0-15.5); WHITE BLOOD COUNT (AUTO) 21.9 K/uL (4.8-10.8)
[2020-10-15 04:44] LABS: ALBUMIN 2.5 g/dL (3.5-5.0); BILIRUBIN,TOTAL 0.5 mg/dL (0.2-1.0); CRP QUANTITATIVE 6.9 mg/L (0.00-9.0); POTASSIUM 5.1 mmol/L (3.5-5.1); TOTAL PROTEIN, SERUM 5.7 g/dL (6.0-8.3)
[2020-10-15] MEDS: INSULIN HUMULIN R 100 UNIT/ML 3ML SQ SCH ×4 (05:33→21:00)
[2020-10-15] MEDS: WATER FOR INJECTION,STERILE 40 ML, VANCOMYCIN 1G 2 GM PO SCH ×8 (09:00→21:11)
[2020-10-15] MEDS: FLUCONAZOLE 200 MG/NS 100 ML 100 ML IV SCH (09:10)
[2020-10-15] MEDS: SOLU-MEDROL 40MG VIAL IVP SCH (09:11)
[2020-10-15] MEDS: PANTOPRAZOLE 40 MG TAB DR PO SCH (09:11)
[2020-10-15] MEDS: NYSTATIN 100000 UNIT/ML 5ML UDCUP PO SCH ×2 (09:11→20:24)
[2020-10-15] MEDS: BUSPIRONE HCL 5 MG TABLET PO SCH ×2 (09:11→20:24)
[2020-10-15] MEDS: METRONIDAZOLE 500 MG TABLET PO SCH ×3 (09:11→20:24)
[2020-10-15] MEDS: PAROXETINE HCL 20 MG TABLET PO SCH ×2 (09:12→20:24)
[2020-10-15] MEDS: ENOXAPARIN SODIUM 60 MG/0.6 ML SQ SCH ×2 (09:13→20:24)
[2020-10-15] MEDS: LINEZOLID 600 MG/ISO-OSM 300 ML IV SCH ×2 (10:54→23:00)
[2020-10-15] MEDS ORDERED: COMPOUND PO MISCELLANEOUS 1 EACH MISC MISC PRN (11:00)
[2020-10-16] VITALS (24 sets, daily range): BP systolic 86–150; BP diastolic 55–100
[2020-10-16] MEDS: MEROPENEM 1 GM VIAL IVP SCH ×3 (02:30→19:36)
[2020-10-16 05:17] LABS: BASOPHILS % (AUTO) 0.2 % (0.0-5.0); MEAN CORPUSCULAR HEMOGLOBIN 29.1 pg (27.0-33.0); MEAN CORPUSCULAR HGB CONC 31.4 g/dL (32.0-36.0); MEAN CORPUSCULAR VOLUME 92.7 fL (79-99); MONOCYTES % (AUTO) 7.8 % (3.0-13.0); NEUTROPHILS % (AUTO) 80.1 % (40.0-77.0); PLATELET COUNT (AUTO) 378 K/uL (130-400); RED BLOOD CELL COUNT(AUTO) 3.99 MIL/uL (4.00-5.50); RED CELL DISTRIBUTION WIDTH 14.1 % (11.0-15.5); WHITE BLOOD COUNT (AUTO) 24.1 K/uL (4.8-10.8)
[2020-10-16 05:29] LABS: BILIRUBIN,TOTAL 0.5 mg/dL (0.2-1.0); CRP QUANTITATIVE 4.5 mg/L (0.00-9.0); POTASSIUM 5.3 mmol/L (3.5-5.1)
[2020-10-16 05:30] LABS: ALBUMIN 2.7 g/dL (3.5-5.0); TOTAL PROTEIN, SERUM 5.9 g/dL (6.0-8.3)
[2020-10-16] MEDS: INSULIN HUMULIN R 100 UNIT/ML 3ML SQ SCH ×4 (05:58→19:36)
[2020-10-16] MEDS: BUSPIRONE HCL 5 MG TABLET PO SCH ×2 (08:02→19:35)
[2020-10-16] MEDS: FLUCONAZOLE 200 MG/NS 100 ML 100 ML IV SCH (08:02)
[2020-10-16] MEDS: PANTOPRAZOLE 40 MG TAB DR PO SCH (08:02)
[2020-10-16] MEDS: NYSTATIN 100000 UNIT/ML 5ML UDCUP PO SCH ×2 (08:03→19:35)
[2020-10-16] MEDS: ENOXAPARIN SODIUM 60 MG/0.6 ML SQ SCH ×2 (08:03→19:36)
[2020-10-16] MEDS: PAROXETINE HCL 20 MG TABLET PO SCH ×2 (08:03→19:35)
[2020-10-16] MEDS: METRONIDAZOLE 500 MG TABLET PO SCH ×3 (08:03→19:35)
[2020-10-16] MEDS: WATER FOR INJECTION,STERILE 40 ML, VANCOMYCIN 1G 2 GM PO SCH ×8 (08:03→20:06)
[2020-10-16] MEDS: LINEZOLID 600 MG/ISO-OSM 300 ML IV SCH ×2 (10:46→20:06)
[2020-10-16] MEDS ORDERED: DEXMEDETOMIDINE HCL 400 MCG in 0.9%NACL 100ML 100 ML IV PRN (18:00)
[2020-10-16] MEDS ORDERED: SOLU-MEDROL 40MG VIAL ONE (19:29)
[2020-10-16] MEDS: ACETAMINOPHEN 325 MG TAB PO PRN (19:35)
[2020-10-16] MEDS: SOLU-MEDROL 40MG VIAL IVP SCH (19:35)
[2020-10-17] VITALS (23 sets, daily range): BP systolic 96–139; BP diastolic 50–89
[2020-10-17] MEDS: ACETAMINOPHEN 325 MG TAB PO PRN ×2 (02:47→19:52)
[2020-10-17 04:33] LABS: BASOPHILS % (AUTO) 0.1 % (0.0-5.0); EOSINOPHILS % (AUTO) 0.1 % (0.0-8.0); HEMATOCRIT 35.7 % (36-48); LYMPHOCYTES % (AUTO) 4.8 % (21.0-51.0); MEAN CORPUSCULAR HEMOGLOBIN 29.3 pg (27.0-33.0); MEAN CORPUSCULAR HGB CONC 32.2 g/dL (32.0-36.0); MEAN CORPUSCULAR VOLUME 91.1 fL (79-99); MONOCYTES % (AUTO) 2.2 % (3.0-13.0); NEUTROPHILS % (AUTO) 91.4 % (40.0-77.0); NUCLEATED RED BLOOD CELLS 0.1 % (0.0-0.19); PLATELET COUNT (AUTO) 290 K/uL (130-400); RED BLOOD CELL COUNT(AUTO) 3.92 MIL/uL (4.00-5.50)
[2020-10-17 04:38] LABS: CREATININE 1.1 mg/dL (0.5-1.5); CRP QUANTITATIVE 82.4 mg/L (0.00-9.0); POTASSIUM 5.3 mmol/L (3.5-5.1)
[2020-10-17] MEDS: MEROPENEM 1 GM VIAL IVP SCH ×3 (04:52→19:53)
[2020-10-17] MEDS: INSULIN HUMULIN R 100 UNIT/ML 3ML SQ SCH ×4 (07:30→21:00)
[2020-10-17] MEDS: METRONIDAZOLE 500 MG TABLET PO SCH ×3 (08:23→19:53)
[2020-10-17] MEDS: PANTOPRAZOLE 40 MG TAB DR PO SCH (08:23)
[2020-10-17] MEDS: ENOXAPARIN SODIUM 60 MG/0.6 ML SQ SCH ×2 (08:23→19:54)
[2020-10-17] MEDS: BUSPIRONE HCL 5 MG TABLET PO SCH ×2 (08:24→19:53)
[2020-10-17] MEDS: SOLU-MEDROL 40MG VIAL IVP SCH ×2 (08:24→19:52)
[2020-10-17] MEDS: FLUCONAZOLE 200 MG/NS 100 ML 100 ML IV SCH (08:24)
[2020-10-17] MEDS: PAROXETINE HCL 20 MG TABLET PO SCH ×2 (08:24→19:53)
[2020-10-17] MEDS: WATER FOR INJECTION,STERILE 40 ML, VANCOMYCIN 1G 2 GM PO SCH ×8 (08:24→19:51)
[2020-10-17] MEDS: NYSTATIN 100000 UNIT/ML 5ML UDCUP PO SCH ×2 (08:24→19:53)
[2020-10-17] MEDS: LINEZOLID 600 MG/ISO-OSM 300 ML IV SCH ×2 (10:37→19:53)
[2020-10-18] VITALS (20 sets, daily range): BP systolic 103–133; BP diastolic 50–81
[2020-10-18] MEDS: MEROPENEM 1 GM VIAL IVP SCH ×3 (05:39→19:35)
[2020-10-18] MEDS: INSULIN HUMULIN R 100 UNIT/ML 3ML SQ SCH ×4 (07:30→21:00)
[2020-10-18 08:25] LABS: BASOPHILS % (AUTO) 0.2 % (0.0-5.0); LYMPHOCYTES % (AUTO) 6.9 % (21.0-51.0); MEAN CORPUSCULAR HEMOGLOBIN 29.4 pg (27.0-33.0); MEAN CORPUSCULAR HGB CONC 32.1 g/dL (32.0-36.0); MEAN CORPUSCULAR VOLUME 91.4 fL (79-99); MONOCYTES % (AUTO) 3.4 % (3.0-13.0); NEUTROPHILS % (AUTO) 88.3 % (40.0-77.0); NUCLEATED RED BLOOD CELLS 0.2 % (0.0-0.19); PLATELET COUNT (AUTO) 272 K/uL (130-400); RED BLOOD CELL COUNT(AUTO) 3.61 MIL/uL (4.00-5.50); WHITE BLOOD COUNT (AUTO) 17.8 K/uL (4.8-10.8)
[2020-10-18 08:39] LABS: ALBUMIN 2.6 g/dL (3.5-5.0); BILIRUBIN,TOTAL 0.5 mg/dL (0.2-1.0); CRP QUANTITATIVE 56.1 mg/L (0.00-9.0); POTASSIUM 5.7 mmol/L (3.5-5.1); TOTAL PROTEIN, SERUM 5.9 g/dL (6.0-8.3)
[2020-10-18] MEDS: NYSTATIN 100000 UNIT/ML 5ML UDCUP PO SCH ×2 (08:47→19:35)
[2020-10-18] MEDS: SOLU-MEDROL 40MG VIAL IVP SCH ×2 (08:47→19:36)
[2020-10-18] MEDS: BUSPIRONE HCL 5 MG TABLET PO SCH ×2 (08:47→19:35)
[2020-10-18] MEDS: PANTOPRAZOLE 40 MG TAB DR PO SCH (08:48)
[2020-10-18] MEDS: ENOXAPARIN SODIUM 60 MG/0.6 ML SQ SCH ×2 (08:48→19:39)
[2020-10-18] MEDS: METRONIDAZOLE 500 MG TABLET PO SCH ×3 (08:48→19:35)
[2020-10-18] MEDS: PAROXETINE HCL 20 MG TABLET PO SCH ×2 (08:48→19:36)
[2020-10-18 08:51] LABS: MAGNESIUM 2.7 mg/dL (1.80-2.40); PHOSPHORUS 3.7 mg/dL (2.5-4.9)
[2020-10-18] MEDS: WATER FOR INJECTION,STERILE 40 ML, VANCOMYCIN 1G 2 GM PO SCH ×2 (09:02)
[2020-10-18 09:15] LABS: B-TYPE NATRIURETIC PEPTIDE 24 pg/mL (0-100)
[2020-10-18] MEDS: LINEZOLID 600 MG/ISO-OSM 300 ML IV SCH ×2 (11:38→19:35)
[2020-10-18] MEDS: ACETAMINOPHEN 325 MG TAB PO PRN (19:36)
[2020-10-19] VITALS (23 sets, daily range): BP systolic 86–138; BP diastolic 51–92
[2020-10-19 04:20] LABS: BASOPHILS % (AUTO) 0.1 % (0.0-5.0); HEMATOCRIT 31.8 % (36-48); LYMPHOCYTES % (AUTO) 6.2 % (21.0-51.0); MEAN CORPUSCULAR HEMOGLOBIN 29.2 pg (27.0-33.0); MEAN CORPUSCULAR HGB CONC 32.1 g/dL (32.0-36.0); MEAN CORPUSCULAR VOLUME 91.1 fL (79-99); MONOCYTES % (AUTO) 3.4 % (3.0-13.0); NEUTROPHILS % (AUTO) 89.1 % (40.0-77.0); NUCLEATED RED BLOOD CELLS 0.2 % (0.0-0.19); PLATELET COUNT (AUTO) 260 K/uL (130-400); RED BLOOD CELL COUNT(AUTO) 3.49 MIL/uL (4.00-5.50); WHITE BLOOD COUNT (AUTO) 18.5 K/uL (4.8-10.8)
[2020-10-19 04:29] LABS: CREATININE 0.9 mg/dL (0.5-1.5); MAGNESIUM 2.6 mg/dL (1.80-2.40); PHOSPHORUS 4.1 mg/dL (2.5-4.9); POTASSIUM 5.6 mmol/L (3.5-5.1)
[2020-10-19 04:33] LABS: B-TYPE NATRIURETIC PEPTIDE 38 pg/mL (0-100)
[2020-10-19] MEDS: MEROPENEM 1 GM VIAL IVP SCH ×2 (06:17→14:46)
[2020-10-19] MEDS: INSULIN HUMULIN R 100 UNIT/ML 3ML SQ SCH ×4 (06:49→21:00)
[2020-10-19] MEDS: METRONIDAZOLE 500 MG TABLET PO SCH ×2 (09:16→14:46)
[2020-10-19] MEDS: PANTOPRAZOLE 40 MG TAB DR PO SCH (09:16)
[2020-10-19] MEDS: SOLU-MEDROL 40MG VIAL IVP SCH ×2 (09:16→20:21)
[2020-10-19] MEDS: NYSTATIN 100000 UNIT/ML 5ML UDCUP PO SCH ×2 (09:16→20:21)
[2020-10-19] MEDS: BUSPIRONE HCL 5 MG TABLET PO SCH ×2 (09:16→20:21)
[2020-10-19] MEDS: PAROXETINE HCL 20 MG TABLET PO SCH ×2 (09:16→20:23)
[2020-10-19] MEDS: ENOXAPARIN SODIUM 60 MG/0.6 ML SQ SCH ×2 (09:17→20:23)
[2020-10-19] MEDS: LINEZOLID 600 MG/ISO-OSM 300 ML IV SCH (11:17)
[2020-10-20] VITALS (20 sets, daily range): BP systolic 90–182; BP diastolic 37–104
[2020-10-20 04:31] LABS: BASOPHILS % (AUTO) 0.1 % (0.0-5.0); HEMATOCRIT 30.4 % (36-48); LYMPHOCYTES % (AUTO) 5.7 % (21.0-51.0); MEAN CORPUSCULAR HGB CONC 32.2 g/dL (32.0-36.0); MEAN CORPUSCULAR VOLUME 89.9 fL (79-99); MONOCYTES % (AUTO) 2.8 % (3.0-13.0); NEUTROPHILS % (AUTO) 89.9 % (40.0-77.0); NUCLEATED RED BLOOD CELLS 0.2 % (0.0-0.19); PLATELET COUNT (AUTO) 223 K/uL (130-400); RED BLOOD CELL COUNT(AUTO) 3.38 MIL/uL (4.00-5.50); RED CELL DISTRIBUTION WIDTH 13.9 % (11.0-15.5); WHITE BLOOD COUNT (AUTO) 16.6 K/uL (4.8-10.8)
[2020-10-20 04:45] LABS: CREATININE 0.8 mg/dL (0.5-1.5); POTASSIUM 5.4 mmol/L (3.5-5.1)
[2020-10-20] MEDS: INSULIN HUMULIN R 100 UNIT/ML 3ML SQ SCH ×4 (06:42→21:00)
[2020-10-20] MEDS: BUSPIRONE HCL 5 MG TABLET PO SCH ×2 (08:26→21:23)
[2020-10-20] MEDS: NYSTATIN 100000 UNIT/ML 5ML UDCUP PO SCH ×2 (08:26→21:23)
[2020-10-20] MEDS: SOLU-MEDROL 40MG VIAL IVP SCH ×2 (08:26→21:23)
[2020-10-20] MEDS: ENOXAPARIN SODIUM 60 MG/0.6 ML SQ SCH ×2 (08:27→21:23)
[2020-10-20] MEDS: PAROXETINE HCL 20 MG TABLET PO SCH ×2 (08:27→21:23)
[2020-10-20] MEDS: PANTOPRAZOLE 40 MG TAB DR PO SCH (08:27)
[2020-10-20 12:42] LABS: APPEARANCE,URINE Turbid (CLEAR); BILIRUBIN,URINE Negative (NEGATIVE); COLOR,URINE Yellow (YELLOW); GLUCOSE, URINE (UA) Negative (NEGATIVE); KETONES,URINE Negative (NEGATIVE); LEUKOCYTE ESTERASE ,URINE Trace (NEGATIVE); NITRATE,URINE Negative (NEGATIVE); OCCULT BLOOD,URINE Negative (NEGATIVE); PROTEIN,URINE Trace mg/dL (NEGATIVE)
[2020-10-20 12:53] LABS: AMORPHOUS SEDIMENT,UR Moderate /LPF (None Seen); BACTERIA,URINE Rare /HPF (None Seen); RBC,URINE 0-1 /HPF (0-1); WBC,URINE 0-1 /HPF (0-1)
[2020-10-21] VITALS (15 sets, daily range): BP systolic 111–161; BP diastolic 67–86
[2020-10-21 04:35] LABS: BASOPHILS % (AUTO) 0.1 % (0.0-5.0); HEMATOCRIT 30.3 % (36-48); LYMPHOCYTES % (AUTO) 6.2 % (21.0-51.0); MEAN CORPUSCULAR HEMOGLOBIN 29.4 pg (27.0-33.0); MEAN CORPUSCULAR HGB CONC 32.7 g/dL (32.0-36.0); MEAN CORPUSCULAR VOLUME 89.9 fL (79-99); NUCLEATED RED BLOOD CELLS 0.3 % (0.0-0.19); PLATELET COUNT (AUTO) 200 K/uL (130-400); RED BLOOD CELL COUNT(AUTO) 3.37 MIL/uL (4.00-5.50); WHITE BLOOD COUNT (AUTO) 16.4 K/uL (4.8-10.8)
[2020-10-21 04:49] LABS: CREATININE 0.8 mg/dL (0.5-1.5); POTASSIUM 5.1 mmol/L (3.5-5.1)
[2020-10-21] MEDS: INSULIN HUMULIN R 100 UNIT/ML 3ML SQ SCH ×4 (07:28→21:00)
[2020-10-21] MEDS: PANTOPRAZOLE 40 MG TAB DR PO SCH (07:58)
[2020-10-21] MEDS: SOLU-MEDROL 40MG VIAL IVP SCH ×2 (07:58→21:29)
[2020-10-21] MEDS: NYSTATIN 100000 UNIT/ML 5ML UDCUP PO SCH ×2 (07:58→21:29)
[2020-10-21] MEDS: BUSPIRONE HCL 5 MG TABLET PO SCH ×2 (07:58→21:29)
[2020-10-21] MEDS: PAROXETINE HCL 20 MG TABLET PO SCH ×2 (07:58→21:29)
[2020-10-21] MEDS: ENOXAPARIN SODIUM 60 MG/0.6 ML SQ SCH ×2 (07:59→21:30)
[2020-10-22] VITALS (29 sets, daily range): BP systolic 81–177; BP diastolic 54–99
[2020-10-22 04:19] LABS: BASOPHILS % (AUTO) 0.2 % (0.0-5.0); EOSINOPHILS % (AUTO) 0.2 % (0.0-8.0); HEMATOCRIT 32.8 % (36-48); LYMPHOCYTES % (AUTO) 5.1 % (21.0-51.0); MEAN CORPUSCULAR HEMOGLOBIN 29.5 pg (27.0-33.0); MEAN CORPUSCULAR HGB CONC 32.9 g/dL (32.0-36.0); MEAN CORPUSCULAR VOLUME 89.6 fL (79-99); MONOCYTES % (AUTO) 3.8 % (3.0-13.0); NEUTROPHILS % (AUTO) 88.3 % (40.0-77.0); NUCLEATED RED BLOOD CELLS 0.3 % (0.0-0.19); PLATELET COUNT (AUTO) 196 K/uL (130-400); RED BLOOD CELL COUNT(AUTO) 3.66 MIL/uL (4.00-5.50); RED CELL DISTRIBUTION WIDTH 13.6 % (11.0-15.5); WHITE BLOOD COUNT (AUTO) 19.7 K/uL (4.8-10.8)
[2020-10-22 04:33] LABS: % IRON SATURATION 33.3 % (22-44)
[2020-10-22 04:37] LABS: CREATININE 0.8 mg/dL (0.5-1.5); CRP QUANTITATIVE 14.4 mg/L (0.00-9.0); POTASSIUM 5.2 mmol/L (3.5-5.1)
[2020-10-22] MEDS: INSULIN HUMULIN R 100 UNIT/ML 3ML SQ SCH ×3 (06:49→15:59)
[2020-10-22] MEDS: SOLU-MEDROL 40MG VIAL IVP SCH ×2 (07:52→21:11)
[2020-10-22] MEDS: BUSPIRONE HCL 5 MG TABLET PO SCH ×2 (07:53→21:11)
[2020-10-22] MEDS: NYSTATIN 100000 UNIT/ML 5ML UDCUP PO SCH ×2 (07:53→21:09)
[2020-10-22] MEDS: PANTOPRAZOLE 40 MG TAB DR PO SCH (07:53)
[2020-10-22] MEDS: PAROXETINE HCL 20 MG TABLET PO SCH ×2 (07:53→21:11)
[2020-10-22] MEDS: ENOXAPARIN SODIUM 60 MG/0.6 ML SQ SCH ×2 (07:53→21:10)
[2020-10-22] MEDS ORDERED: MORPHINE 2 MG SYG ONE (08:47)
[2020-10-22] MEDS ORDERED: DEXMEDETOMIDINE 400MCG/NS100ML IV ONE (08:48)
[2020-10-22] MEDS ORDERED: DEXMEDETOMIDINE 400MCG/NS100ML IV SCH (09:00)
[2020-10-22] MEDS ORDERED: MORPHINE 2 MG SYG IVP SCH (09:00)
[2020-10-22] MEDS ORDERED: DEXMEDETOMIDINE HCL 400 MCG in 0.9%NACL 100ML 100 ML IV SCH (09:00)
[2020-10-22] MEDS ORDERED: PROPOFOL 1000 MG/100 ML 100 ML IV ONE (14:12)
[2020-10-22] MEDS ORDERED: FENTANYL 2500MCG+NS 250ML 250 ML IV ONE (14:13)
[2020-10-22 14:41] LABS: HEMATOCRIT 30.8 % (36-48); MEAN CORPUSCULAR HEMOGLOBIN 30.2 pg (27.0-33.0); MEAN CORPUSCULAR HGB CONC 33.1 g/dL (32.0-36.0); MEAN CORPUSCULAR VOLUME 91.1 fL (79-99); NUCLEATED RED BLOOD CELLS 0.2 % (0.0-0.19); RED BLOOD CELL COUNT(AUTO) 3.38 MIL/uL (4.00-5.50); RED CELL DISTRIBUTION WIDTH 13.5 % (11.0-15.5); WHITE BLOOD COUNT (AUTO) 16.5 K/uL (4.8-10.8)
[2020-10-22] MEDS ORDERED: PHARMACY COMMUNICATION MISC SCH (15:00)
[2020-10-22] MEDS ORDERED: FENTANYL CITRATE PF 0.05 MG/ML 1,000 MCG in 0.9%NACL 100ML 100 ML IV PRN (15:00)
[2020-10-22] MEDS ORDERED: PROPOFOL 1000 MG/100 ML 100 ML IV PRN (15:00)
[2020-10-22 15:23] LABS: CREATININE 1.1 mg/dL (0.5-1.5)
[2020-10-22 15:27] LABS: ALBUMIN 2.7 g/dL (3.5-5.0); BILIRUBIN,TOTAL 0.8 mg/dL (0.2-1.0); TOTAL PROTEIN, SERUM 5.8 g/dL (6.0-8.3)
[2020-10-22] MEDS ORDERED: ZOSYN 3.375GM+NS 50ML 3.38 GM in 0.9%NACL 50ML 50 ML IV SCH (15:30)
[2020-10-22] MEDS: NOREPINEPHRIN 4MG/NS 250ML 250 ML IV SCH ×2 (15:33→21:39)
[2020-10-22 16:06] LABS: ABG BASE EXCESS 1.3 mmol/L (-2.0-3.0); ABG HCO3 26.5 mmol/L (21.0-28.0); ABG OXYGEN SATURATION 95.8 % (95.0-99.0); ABG PCO2 44 mmHg (32-45)
[2020-10-22] MEDS: ZOSYN 3.375GM +NS 50ML IV SCH (16:06)
[2020-10-22] MEDS: 0.9%NACL 50ML 50 ML IV SCH (16:06)
[2020-10-22] MEDS: PROPOFOL 1000 MG/100 ML 100 ML IV PRN ×2 (17:52→22:09)
[2020-10-23] VITALS (24 sets, daily range): BP systolic 100–129; BP diastolic 59–83
[2020-10-23] MEDS: PROPOFOL 1000 MG/100 ML 100 ML IV PRN ×8 (02:56→23:55)
[2020-10-23] MEDS: NOREPINEPHRIN 4MG/NS 250ML 250 ML IV SCH ×3 (03:03→21:26)
[2020-10-23] MEDS: FENTANYL 2500MCG+NS 250ML 250 ML IV SCH ×2 (03:57→16:35)
[2020-10-23 04:20] LABS: BASOPHILS % (AUTO) 0.3 % (0.0-5.0); HEMATOCRIT 30.7 % (36-48); LYMPHOCYTES % (AUTO) 6.3 % (21.0-51.0); MEAN CORPUSCULAR HEMOGLOBIN 29.6 pg (27.0-33.0); MEAN CORPUSCULAR HGB CONC 32.2 g/dL (32.0-36.0); MEAN CORPUSCULAR VOLUME 91.9 fL (79-99); MONOCYTES % (AUTO) 3.2 % (3.0-13.0); NEUTROPHILS % (AUTO) 85.9 % (40.0-77.0); NUCLEATED RED BLOOD CELLS 0.8 % (0.0-0.19); PLATELET COUNT (AUTO) 150 K/uL (130-400); RED BLOOD CELL COUNT(AUTO) 3.34 MIL/uL (4.00-5.50); RED CELL DISTRIBUTION WIDTH 13.8 % (11.0-15.5); WHITE BLOOD COUNT (AUTO) 23.1 K/uL (4.8-10.8)
[2020-10-23 04:29] LABS: POTASSIUM 5.4 mmol/L (3.5-5.1)
[2020-10-23] MEDS: INSULIN HUMULIN R 100 UNIT/ML 3ML SQ SCH ×4 (06:00→17:32)
[2020-10-23] MEDS: SOLU-MEDROL 40MG VIAL IVP SCH ×2 (08:11→22:06)
[2020-10-23] MEDS: FAMOTIDINE 20MG TAB PO SCH ×2 (08:11→22:07)
[2020-10-23] MEDS: 0.9%NACL 50ML 50 ML IV SCH ×4 (08:11→23:54)
[2020-10-23] MEDS: BUSPIRONE HCL 5 MG TABLET PO SCH ×2 (08:11→22:07)
[2020-10-23] MEDS: NYSTATIN 100000 UNIT/ML 5ML UDCUP PO SCH ×2 (08:11→22:07)
[2020-10-23] MEDS: ZOSYN 3.375GM +NS 50ML IV SCH ×4 (08:11→23:54)
[2020-10-23] MEDS: PAROXETINE HCL 20 MG TABLET PO SCH ×2 (08:12→22:07)
[2020-10-23] MEDS: ENOXAPARIN SODIUM 60 MG/0.6 ML SQ SCH ×2 (08:12→22:08)
[2020-10-23 13:15] LABS: ABG BASE EXCESS 0.7 mmol/L (-2.0-3.0); ABG HCO3 25.5 mmol/L (21.0-28.0); ABG OXYGEN SATURATION 93.9 % (95.0-99.0); ABG PCO2 42 mmHg (32-45)
[2020-10-24] VITALS (24 sets, daily range): BP systolic 103–150; BP diastolic 61–88
[2020-10-24] MEDS: PROPOFOL 1000 MG/100 ML 100 ML IV PRN ×7 (03:11→22:15)
[2020-10-24] MEDS: FENTANYL 2500MCG+NS 250ML 250 ML IV SCH ×3 (03:45→23:21)
[2020-10-24 04:23] LABS: BASOPHILS % (AUTO) 0.4 % (0.0-5.0); EOSINOPHILS % (AUTO) 0.1 % (0.0-8.0); HEMATOCRIT 24.9 % (36-48); LYMPHOCYTES % (AUTO) 8.3 % (21.0-51.0); MEAN CORPUSCULAR HEMOGLOBIN 30.4 pg (27.0-33.0); MEAN CORPUSCULAR HGB CONC 32.9 g/dL (32.0-36.0); MEAN CORPUSCULAR VOLUME 92.2 fL (79-99); MONOCYTES % (AUTO) 3.9 % (3.0-13.0); NEUTROPHILS % (AUTO) 79.9 % (40.0-77.0); NUCLEATED RED BLOOD CELLS 2.8 % (0.0-0.19); PLATELET COUNT (AUTO) 117 K/uL (130-400); WHITE BLOOD COUNT (AUTO) 23.9 K/uL (4.8-10.8)
[2020-10-24 04:59] LABS: CREATININE 0.8 mg/dL (0.5-1.5); CRP QUANTITATIVE 28.8 mg/L (0.00-9.0); POTASSIUM 4.6 mmol/L (3.5-5.1)
[2020-10-24] MEDS: INSULIN HUMULIN R 100 UNIT/ML 3ML SQ SCH ×4 (05:58→18:00)
[2020-10-24 07:58] LABS: ABG BASE EXCESS 2.1 mmol/L (-2.0-3.0); ABG HCO3 26.5 mmol/L (21.0-28.0); ABG OXYGEN SATURATION 93.1 % (95.0-99.0); ABG PCO2 41 mmHg (32-45)
[2020-10-24] MEDS: SOLU-MEDROL 40MG VIAL IVP SCH ×2 (08:10→19:38)
[2020-10-24] MEDS: 0.9%NACL 50ML 50 ML IV SCH ×3 (08:10→22:16)
[2020-10-24] MEDS: ZOSYN 3.375GM +NS 50ML IV SCH ×3 (08:10→22:16)
[2020-10-24] MEDS: BUSPIRONE HCL 5 MG TABLET PO SCH ×2 (08:11→19:39)
[2020-10-24] MEDS: FAMOTIDINE 20MG TAB PO SCH ×2 (08:11→19:39)
[2020-10-24] MEDS: PAROXETINE HCL 20 MG TABLET PO SCH ×2 (08:11→19:39)
[2020-10-24] MEDS: NYSTATIN 100000 UNIT/ML 5ML UDCUP PO SCH ×2 (08:12→19:39)
[2020-10-24] MEDS: ENOXAPARIN SODIUM 60 MG/0.6 ML SQ SCH ×2 (08:13→19:38)
[2020-10-24] MEDS: NOREPINEPHRIN 4MG/NS 250ML 250 ML IV SCH (13:17)
[2020-10-24] MEDS: MIDAZOLAM 100MG-0.9% NS 100ML 100 ML IV SCH (21:29)
[2020-10-24] MEDS ORDERED: MIDAZOLAM 100MG-0.9% NS 100ML 100ML BAG IV PRN (21:30)
[2020-10-24] MEDS: CISATRACURIUM BESYLATE 100 MG in 0.9%NACL 100ML 100 ML IV SCH (22:27)
[2020-10-25] VITALS (24 sets, daily range): BP systolic 86–140; BP diastolic 51–84
[2020-10-25] MEDS: PROPOFOL 1000 MG/100 ML 100 ML IV PRN ×8 (00:58→21:05)
[2020-10-25] MEDS: CISATRACURIUM BESYLATE 100 MG in 0.9%NACL 100ML 100 ML IV SCH ×4 (00:59→21:03)
[2020-10-25 04:10] LABS: BASOPHILS % (AUTO) 0.4 % (0.0-5.0); HEMATOCRIT 22.5 % (36-48); LYMPHOCYTES % (AUTO) 8.6 % (21.0-51.0); MEAN CORPUSCULAR HEMOGLOBIN 30.3 pg (27.0-33.0); MEAN CORPUSCULAR HGB CONC 32.9 g/dL (32.0-36.0); MEAN CORPUSCULAR VOLUME 92.2 fL (79-99); MONOCYTES % (AUTO) 3.5 % (3.0-13.0); NEUTROPHILS % (AUTO) 77.9 % (40.0-77.0); PLATELET COUNT (AUTO) 96 K/uL (130-400); RED BLOOD CELL COUNT(AUTO) 2.44 MIL/uL (4.00-5.50); RED CELL DISTRIBUTION WIDTH 14.1 % (11.0-15.5); WHITE BLOOD COUNT (AUTO) 20.8 K/uL (4.8-10.8)
[2020-10-25 04:38] LABS: ALBUMIN 2.2 g/dL (3.5-5.0); BILIRUBIN,TOTAL 0.8 mg/dL (0.2-1.0); CREATININE 0.6 mg/dL (0.5-1.5); MAGNESIUM 2.1 mg/dL (1.80-2.40); PHOSPHORUS 4.3 mg/dL (2.5-4.9); POTASSIUM 4.2 mmol/L (3.5-5.1); TOTAL PROTEIN, SERUM 4.9 g/dL (6.0-8.3)
[2020-10-25 04:40] LABS: LYMPHOCYTES % (MANUAL) 2 % (22-44); MONOCYTES % (MANUAL) 4 % (2-9); SEGMENTED NEUTROPHILS % 94 % (40-70)
[2020-10-25 04:41] LABS: MAN.DIFF COMMENT-IMPRESSION MANUAL DIFFERENTIAL; NUCLEATED RED BLOOD CELLS 9.9 % (0.0-0.19)
[2020-10-25 04:44] LABS: PLATELET MORPHOLOGY COMMENT DECREASED
[2020-10-25] MEDS: INSULIN HUMULIN R 100 UNIT/ML 3ML SQ SCH ×4 (05:13→18:00)
[2020-10-25] MEDS: MIDODRINE HCL 5 MG TABLET GT SCH ×3 (06:31→20:03)
[2020-10-25] MEDS: ZOSYN 3.375GM +NS 50ML IV SCH ×3 (06:33→23:03)
[2020-10-25] MEDS: 0.9%NACL 50ML 50 ML IV SCH ×3 (06:33→23:03)
[2020-10-25 06:55] LABS: ABG BASE EXCESS 0.2 mmol/L (-2.0-3.0); ABG HCO3 26.4 mmol/L (21.0-28.0); ABG OXYGEN SATURATION 97.2 % (95.0-99.0); ABG PCO2 52 mmHg (32-45)
[2020-10-25] MEDS: FENTANYL 2500MCG+NS 250ML 250 ML IV SCH ×3 (07:26→20:42)
[2020-10-25] MEDS: NYSTATIN 100000 UNIT/ML 5ML UDCUP PO SCH ×2 (08:43→20:03)
[2020-10-25] MEDS: PAROXETINE HCL 20 MG TABLET PO SCH ×2 (08:43→20:02)
[2020-10-25] MEDS: SOLU-MEDROL 40MG VIAL IVP SCH ×2 (08:43→20:02)
[2020-10-25] MEDS: FAMOTIDINE 20MG TAB PO SCH ×2 (08:43→20:02)
[2020-10-25] MEDS: BUSPIRONE HCL 5 MG TABLET PO SCH ×2 (08:43→20:03)
[2020-10-25] MEDS: ENOXAPARIN SODIUM 60 MG/0.6 ML SQ SCH (08:44)
[2020-10-25 11:06] LABS: HEMATOCRIT 23.6 % (36-48)
[2020-10-25] MEDS: MIDAZOLAM 100MG-0.9% NS 100ML 100 ML IV SCH (12:24)
[2020-10-25 18:11] LABS: HEMATOCRIT 23.8 % (36-48); RETICULOCYTE % (AUTO) 3.19 % (0.42-2.23)
[2020-10-25 18:25] LABS: % IRON SATURATION 51.2 % (22-44)
[2020-10-25] MEDS ORDERED: FUROSEMIDE 40MG VIAL IV ONE (20:00)
[2020-10-26] VITALS (23 sets, daily range): BP systolic 84–108; BP diastolic 51–70
[2020-10-26] MEDS: CISATRACURIUM BESYLATE 100 MG in 0.9%NACL 100ML 100 ML IV SCH ×5 (01:27→20:43)
[2020-10-26] MEDS: FENTANYL 2500MCG+NS 250ML 250 ML IV SCH ×3 (03:47→19:58)
[2020-10-26] MEDS: PROPOFOL 1000 MG/100 ML 100 ML IV PRN ×2 (03:48→08:56)
[2020-10-26] MEDS: INSULIN HUMULIN R 100 UNIT/ML 3ML SQ SCH ×5 (05:30→23:38)
[2020-10-26] MEDS: MIDODRINE HCL 5 MG TABLET GT SCH ×3 (05:38→20:06)
[2020-10-26] MEDS: 0.9%NACL 50ML 50 ML IV SCH ×3 (06:15→23:42)
[2020-10-26] MEDS: ZOSYN 3.375GM +NS 50ML IV SCH ×3 (06:15→23:42)
[2020-10-26 06:56] LABS: ABG BASE EXCESS -0.1 mmol/L (-2.0-3.0); ABG HCO3 25.7 mmol/L (21.0-28.0); ABG OXYGEN SATURATION 91.1 % (95.0-99.0); ABG PCO2 48 mmHg (32-45)
[2020-10-26] MEDS: MIDAZOLAM 100MG-0.9% NS 100ML 100 ML IV SCH (08:57)
[2020-10-26] MEDS: BUSPIRONE HCL 5 MG TABLET PO SCH ×2 (09:00→19:56)
[2020-10-26] MEDS: SOLU-MEDROL 40MG VIAL IVP SCH ×2 (09:00→19:56)
[2020-10-26] MEDS: FAMOTIDINE 20MG TAB PO SCH ×2 (09:00→19:57)
[2020-10-26] MEDS: PAROXETINE HCL 20 MG TABLET PO SCH ×2 (09:01→19:57)
[2020-10-26] MEDS: NYSTATIN 100000 UNIT/ML 5ML UDCUP PO SCH ×2 (09:01→19:57)
[2020-10-26 20:04] LABS: ABG HCO3 28.1 mmol/L (21.0-28.0); ABG OXYGEN SATURATION 89.7 % (95.0-99.0); ABG PCO2 45 mmHg (32-45)
[2020-10-27] VITALS (24 sets, daily range): BP systolic 72–147; BP diastolic 48–76
[2020-10-27] MEDS: CISATRACURIUM BESYLATE 100 MG in 0.9%NACL 100ML 100 ML IV SCH ×3 (01:53→21:32)
[2020-10-27 04:35] LABS: BASOPHILS % (AUTO) 0.2 % (0.0-5.0); EOSINOPHILS % (AUTO) 0.9 % (0.0-8.0); HEMATOCRIT 24.8 % (36-48); LYMPHOCYTES % (AUTO) 3.2 % (21.0-51.0); MEAN CORPUSCULAR HEMOGLOBIN 30.1 pg (27.0-33.0); MEAN CORPUSCULAR HGB CONC 32.3 g/dL (32.0-36.0); MEAN CORPUSCULAR VOLUME 93.2 fL (79-99); MONOCYTES % (AUTO) 3.5 % (3.0-13.0); NEUTROPHILS % (AUTO) 84.3 % (40.0-77.0); NUCLEATED RED BLOOD CELLS 9.5 % (0.0-0.19); PLATELET COUNT (AUTO) 89 K/uL (130-400); RED BLOOD CELL COUNT(AUTO) 2.66 MIL/uL (4.00-5.50); RED CELL DISTRIBUTION WIDTH 15.4 % (11.0-15.5); WHITE BLOOD COUNT (AUTO) 16.1 K/uL (4.8-10.8)
[2020-10-27 04:49] LABS: ALBUMIN 2.4 g/dL (3.5-5.0); BILIRUBIN,TOTAL 0.8 mg/dL (0.2-1.0); CREATININE 0.6 mg/dL (0.5-1.5); MAGNESIUM 2.1 mg/dL (1.80-2.40); TOTAL PROTEIN, SERUM 5.2 g/dL (6.0-8.3)
[2020-10-27] MEDS: MIDODRINE HCL 5 MG TABLET GT SCH ×3 (05:14→20:00)
[2020-10-27] MEDS: INSULIN HUMULIN R 100 UNIT/ML 3ML SQ SCH ×3 (05:15→18:00)
[2020-10-27 05:26] LABS: BAND NEUTROPHILS % (MANUAL) 6 % (0-2); LYMPHOCYTES % (MANUAL) 5 % (22-44); MAN.DIFF COMMENT-IMPRESSION MANUAL DIFFERENTIAL; MONOCYTES % (MANUAL) 5 % (2-9); PLATELET MORPHOLOGY COMMENT DECREASED; SEGMENTED NEUTROPHILS % 84 % (40-70)
[2020-10-27] MEDS: 0.9%NACL 50ML 50 ML IV SCH ×2 (06:23→14:53)
[2020-10-27] MEDS: ZOSYN 3.375GM +NS 50ML IV SCH ×2 (06:23→14:53)
[2020-10-27] MEDS: FENTANYL 2500MCG+NS 250ML 250 ML IV SCH ×2 (06:48→09:05)
[2020-10-27 07:23] LABS: ABG BASE EXCESS 1.5 mmol/L (-2.0-3.0); ABG HCO3 26.9 mmol/L (21.0-28.0); ABG OXYGEN SATURATION 91.6 % (95.0-99.0); ABG PCO2 47 mmHg (32-45)
[2020-10-27] MEDS: MIDAZOLAM 100MG-0.9% NS 100ML 100 ML IV SCH (09:04)
[2020-10-27] MEDS: FAMOTIDINE 20MG TAB PO SCH (09:07)
[2020-10-27] MEDS: SOLU-MEDROL 40MG VIAL IVP SCH ×2 (09:07→19:40)
[2020-10-27] MEDS: BUSPIRONE HCL 5 MG TABLET PO SCH ×2 (09:07→19:40)
[2020-10-27] MEDS: NYSTATIN 100000 UNIT/ML 5ML UDCUP PO SCH ×2 (09:07→19:41)
[2020-10-27] MEDS: PAROXETINE HCL 20 MG TABLET PO SCH ×2 (09:08→19:41)
[2020-10-27] MEDS: FUROSEMIDE 20MG VIAL IV SCH (15:30)
[2020-10-27] MEDS: NOREPINEPHRIN 4MG/NS 250ML 250 ML IV SCH (19:44)
[2020-10-28] VITALS (24 sets, daily range): BP systolic 92–123; BP diastolic 53–71
[2020-10-28] MEDS: ZOSYN 3.375GM +NS 50ML IV SCH ×4 (01:09→22:32)
[2020-10-28] MEDS: 0.9%NACL 50ML 50 ML IV SCH ×4 (01:09→22:32)
[2020-10-28] MEDS: CISATRACURIUM BESYLATE 100 MG in 0.9%NACL 100ML 100 ML IV SCH ×5 (01:22→22:42)
[2020-10-28] MEDS: FUROSEMIDE 20MG VIAL IV SCH ×3 (01:22→20:05)
[2020-10-28] MEDS: INSULIN HUMULIN R 100 UNIT/ML 3ML SQ SCH ×4 (06:00→17:28)
[2020-10-28] MEDS ORDERED: FENTANYL 2500MCG+NS 250ML 250 ML IV ONE (06:01)
[2020-10-28] MEDS ORDERED: FENTANYL CITRATE PF 0.05 MG/ML 1,000 MCG in 0.9%NACL 100ML 100 ML IVPB SCH (06:30)
[2020-10-28 06:41] LABS: ABG BASE EXCESS 2.6 mmol/L (-2.0-3.0); ABG HCO3 28.1 mmol/L (21.0-28.0); ABG OXYGEN SATURATION 88.7 % (95.0-99.0); ABG PCO2 48 mmHg (32-45)
[2020-10-28] MEDS ORDERED: PANTOPRAZOLE 40 MG TAB DR PO SCH (09:00)
[2020-10-28] MEDS: FONDAPARINUX SODIUM 7.5 MG/0.6 ML SQ SCH (10:02)
[2020-10-28] MEDS: FONDAPARINUX SODIUM 2.5 MG/0.5 ML SQ SCH (10:02)
[2020-10-28] MEDS: BUSPIRONE HCL 5 MG TABLET PO SCH ×2 (10:03→20:05)
[2020-10-28] MEDS: SOLU-MEDROL 40MG VIAL IVP SCH ×2 (10:03→20:06)
[2020-10-28] MEDS: NYSTATIN 100000 UNIT/ML 5ML UDCUP PO SCH ×2 (10:03→20:07)
[2020-10-28] MEDS: PAROXETINE HCL 20 MG TABLET PO SCH ×2 (10:04→20:05)
[2020-10-28] MEDS: MIDAZOLAM 100MG-0.9% NS 100ML 100 ML IV SCH ×2 (10:45→14:45)
[2020-10-28 16:40] LABS: BASOPHILS % (AUTO) 0.1 % (0.0-5.0); HEMATOCRIT 24.7 % (36-48); MEAN CORPUSCULAR HEMOGLOBIN 30.7 pg (27.0-33.0); MEAN CORPUSCULAR HGB CONC 32.4 g/dL (32.0-36.0); MEAN CORPUSCULAR VOLUME 94.6 fL (79-99); NEUTROPHILS % (AUTO) 91.3 % (40.0-77.0); NUCLEATED RED BLOOD CELLS 4.3 % (0.0-0.19); PLATELET COUNT (AUTO) 90 K/uL (130-400); RED BLOOD CELL COUNT(AUTO) 2.61 MIL/uL (4.00-5.50); WHITE BLOOD COUNT (AUTO) 15.1 K/uL (4.8-10.8)
[2020-10-28 16:53] LABS: ALBUMIN 2.3 g/dL (3.5-5.0); BILIRUBIN,TOTAL 0.7 mg/dL (0.2-1.0); CREATININE 0.6 mg/dL (0.5-1.5); POTASSIUM 3.8 mmol/L (3.5-5.1); TOTAL PROTEIN, SERUM 5.2 g/dL (6.0-8.3)
[2020-10-28 16:54] LABS: PHOSPHORUS 3.8 mg/dL (2.5-4.9)
[2020-10-28] MEDS: MIDODRINE HCL 5 MG TABLET PO SCH (18:34)
[2020-10-28] MEDS: FENTANYL 2500MCG+NS 250ML 250 ML IV SCH (20:06)
[2020-10-29] VITALS (19 sets, daily range): BP systolic 94–150; BP diastolic 53–103
[2020-10-29] MEDS: MIDODRINE HCL 5 MG TABLET PO SCH ×3 (01:19→18:23)
[2020-10-29] MEDS: CISATRACURIUM BESYLATE 100 MG in 0.9%NACL 100ML 100 ML IV SCH ×3 (03:04→20:19)
[2020-10-29 04:11] LABS: BASOPHILS % (AUTO) 0.2 % (0.0-5.0); HEMATOCRIT 25.2 % (36-48); LYMPHOCYTES % (AUTO) 3.8 % (21.0-51.0); MEAN CORPUSCULAR HEMOGLOBIN 30.3 pg (27.0-33.0); MEAN CORPUSCULAR HGB CONC 31.7 g/dL (32.0-36.0); MEAN CORPUSCULAR VOLUME 95.5 fL (79-99); MONOCYTES % (AUTO) 2.9 % (3.0-13.0); NEUTROPHILS % (AUTO) 90.5 % (40.0-77.0); NUCLEATED RED BLOOD CELLS 3.4 % (0.0-0.19); PLATELET COUNT (AUTO) 90 K/uL (130-400); RED BLOOD CELL COUNT(AUTO) 2.64 MIL/uL (4.00-5.50); RED CELL DISTRIBUTION WIDTH 18.6 % (11.0-15.5); WHITE BLOOD COUNT (AUTO) 15.4 K/uL (4.8-10.8)
[2020-10-29 04:29] LABS: ALBUMIN 2.3 g/dL (3.5-5.0); BILIRUBIN,TOTAL 0.8 mg/dL (0.2-1.0); CREATININE 0.6 mg/dL (0.5-1.5); POTASSIUM 3.8 mmol/L (3.5-5.1); TOTAL PROTEIN, SERUM 5.3 g/dL (6.0-8.3)
[2020-10-29] MEDS: INSULIN HUMULIN R 100 UNIT/ML 3ML SQ SCH ×4 (05:08→17:36)
[2020-10-29] MEDS: FENTANYL 2500MCG+NS 250ML 250 ML IV SCH ×2 (05:16→21:58)
[2020-10-29 05:33] LABS: ABG BASE EXCESS 7.5 mmol/L (-2.0-3.0); ABG HCO3 32.6 mmol/L (21.0-28.0); ABG OXYGEN SATURATION 87.7 % (95.0-99.0); ABG PCO2 50 mmHg (32-45)
[2020-10-29] MEDS: ZOSYN 3.375GM +NS 50ML IV SCH ×3 (05:52→23:43)
[2020-10-29] MEDS: 0.9%NACL 50ML 50 ML IV SCH ×3 (05:52→23:43)
[2020-10-29] MEDS: METOCLOPRAMIDE 5 MG TABLET PO SCH ×3 (06:52→17:28)
[2020-10-29] MEDS: SOLU-MEDROL 40MG VIAL IVP SCH ×2 (09:08→19:46)
[2020-10-29] MEDS: BUSPIRONE HCL 5 MG TABLET PO SCH ×2 (09:08→19:45)
[2020-10-29] MEDS: PAROXETINE HCL 20 MG TABLET PO SCH ×2 (09:08→19:45)
[2020-10-29] MEDS: PANTOPRAZOLE 40 MG/VIAL IVP SCH (09:08)
[2020-10-29] MEDS: FONDAPARINUX SODIUM 7.5 MG/0.6 ML SQ SCH (09:09)
[2020-10-29] MEDS: FONDAPARINUX SODIUM 2.5 MG/0.5 ML SQ SCH (09:10)
[2020-10-30] VITALS (11 sets, daily range): BP systolic 98–129; BP diastolic 45–71
[2020-10-30] MEDS: CISATRACURIUM BESYLATE 100 MG in 0.9%NACL 100ML 100 ML IV SCH ×3 (00:52→20:27)
[2020-10-30] MEDS: MIDODRINE HCL 5 MG TABLET PO SCH ×3 (01:42→17:38)
[2020-10-30 04:14] LABS: BASOPHILS % (AUTO) 0.2 % (0.0-5.0); EOSINOPHILS % (AUTO) 1.3 % (0.0-8.0); HEMATOCRIT 24.7 % (36-48); LYMPHOCYTES % (AUTO) 4.5 % (21.0-51.0); MEAN CORPUSCULAR HEMOGLOBIN 30.8 pg (27.0-33.0); MEAN CORPUSCULAR HGB CONC 31.2 g/dL (32.0-36.0); MEAN CORPUSCULAR VOLUME 98.8 fL (79-99); MONOCYTES % (AUTO) 2.6 % (3.0-13.0); NEUTROPHILS % (AUTO) 86.1 % (40.0-77.0); NUCLEATED RED BLOOD CELLS 4.4 % (0.0-0.19); PLATELET COUNT (AUTO) 96 K/uL (130-400); RED CELL DISTRIBUTION WIDTH 19.3 % (11.0-15.5); WHITE BLOOD COUNT (AUTO) 12.2 K/uL (4.8-10.8)
[2020-10-30 04:39] LABS: ALBUMIN 2.3 g/dL (3.5-5.0); BILIRUBIN,TOTAL 0.7 mg/dL (0.2-1.0); CREATININE 0.5 mg/dL (0.5-1.5); CRP QUANTITATIVE 33.4 mg/L (0.00-9.0); MAGNESIUM 2.2 mg/dL (1.80-2.40); PHOSPHORUS 3.3 mg/dL (2.5-4.9); TOTAL PROTEIN, SERUM 5.2 g/dL (6.0-8.3)
[2020-10-30] MEDS: MIDAZOLAM 100MG-0.9% NS 100ML 100 ML IV SCH ×2 (05:45→20:16)
[2020-10-30] MEDS: INSULIN HUMULIN R 100 UNIT/ML 3ML SQ SCH ×4 (06:00→18:00)
[2020-10-30 06:32] LABS: ABG BASE EXCESS 7.7 mmol/L (-2.0-3.0); ABG HCO3 32.9 mmol/L (21.0-28.0); ABG OXYGEN SATURATION 81.4 % (95.0-99.0); ABG PCO2 50 mmHg (32-45)
[2020-10-30] MEDS: 0.9%NACL 50ML 50 ML IV SCH ×3 (07:30→22:21)
[2020-10-30] MEDS: ZOSYN 3.375GM +NS 50ML IV SCH ×3 (07:30→22:21)
[2020-10-30] MEDS: METOCLOPRAMIDE 5 MG TABLET PO SCH ×3 (07:30→17:38)
[2020-10-30] MEDS: BUSPIRONE HCL 5 MG TABLET PO SCH ×2 (09:00→20:26)
[2020-10-30] MEDS: SOLU-MEDROL 40MG VIAL IVP SCH ×2 (09:00→20:26)
[2020-10-30] MEDS: FONDAPARINUX SODIUM 2.5 MG/0.5 ML SQ SCH (09:00)
[2020-10-30] MEDS: PAROXETINE HCL 20 MG TABLET PO SCH ×2 (09:00→20:26)
[2020-10-30] MEDS: FUROSEMIDE 20MG VIAL IV SCH (09:00)
[2020-10-30] MEDS: PANTOPRAZOLE 40 MG/VIAL IVP SCH (09:00)
[2020-10-30] MEDS: FONDAPARINUX SODIUM 7.5 MG/0.6 ML SQ SCH (09:00)
[2020-10-30] MEDS: FENTANYL 2500MCG+NS 250ML 250 ML IV SCH (23:53)
[2020-10-31] VITALS (22 sets, daily range): BP systolic 91–135; BP diastolic 50–74
[2020-10-31] MEDS: MIDODRINE HCL 5 MG TABLET PO SCH ×3 (02:58→16:22)
[2020-10-31 04:44] LABS: BASOPHILS % (AUTO) 0.2 % (0.0-5.0); HEMATOCRIT 22.5 % (36-48); LYMPHOCYTES % (AUTO) 4.6 % (21.0-51.0); MEAN CORPUSCULAR HEMOGLOBIN 31.2 pg (27.0-33.0); MEAN CORPUSCULAR VOLUME 97.4 fL (79-99); MONOCYTES % (AUTO) 4.3 % (3.0-13.0); NEUTROPHILS % (AUTO) 85.4 % (40.0-77.0); NUCLEATED RED BLOOD CELLS 4.7 % (0.0-0.19); PLATELET COUNT (AUTO) 114 K/uL (130-400); RED BLOOD CELL COUNT(AUTO) 2.31 MIL/uL (4.00-5.50); RED CELL DISTRIBUTION WIDTH 20.5 % (11.0-15.5); WHITE BLOOD COUNT (AUTO) 9.5 K/uL (4.8-10.8)
[2020-10-31 05:07] LABS: ALBUMIN 2.2 g/dL (3.5-5.0); BILIRUBIN,TOTAL 0.7 mg/dL (0.2-1.0); CREATININE 0.5 mg/dL (0.5-1.5); MAGNESIUM 2.1 mg/dL (1.80-2.40); PHOSPHORUS 3.1 mg/dL (2.5-4.9); POTASSIUM 3.8 mmol/L (3.5-5.1)
[2020-10-31] MEDS: CISATRACURIUM BESYLATE 100 MG in 0.9%NACL 100ML 100 ML IV SCH (05:35)
[2020-10-31] MEDS: INSULIN HUMULIN R 100 UNIT/ML 3ML SQ SCH ×2 (06:00)
[2020-10-31 06:59] LABS: ABG BASE EXCESS 9.5 mmol/L (-2.0-3.0); ABG HCO3 34.2 mmol/L (21.0-28.0); ABG OXYGEN SATURATION 91.2 % (95.0-99.0); ABG PCO2 48 mmHg (32-45)
[2020-10-31] MEDS: METOCLOPRAMIDE 5 MG TABLET PO SCH ×3 (07:30→16:22)
[2020-10-31] MEDS: PAROXETINE HCL 20 MG TABLET PO SCH (10:01)
[2020-10-31] MEDS: FUROSEMIDE 20MG VIAL IV SCH (10:01)
[2020-10-31] MEDS: BUSPIRONE HCL 5 MG TABLET PO SCH (10:01)
[2020-10-31] MEDS: SOLU-MEDROL 40MG VIAL IVP SCH ×2 (10:01→20:54)
[2020-10-31] MEDS: PANTOPRAZOLE 40 MG/VIAL IVP SCH (10:01)
[2020-10-31] MEDS: FONDAPARINUX SODIUM 2.5 MG/0.5 ML SQ SCH (10:02)
[2020-10-31] MEDS: FONDAPARINUX SODIUM 7.5 MG/0.6 ML SQ SCH (10:02)
[2020-10-31] MEDS ORDERED: PHARMACY COMMUNICATION MISC SCH (12:30)
[2020-10-31] MEDS ORDERED: KETAMINE 50MG/ML SYRINGE 100 MG in 0.9%NACL 100ML 100 ML IV SCH (13:00)
[2020-11-01] VITALS (23 sets, daily range): BP systolic 83–148; BP diastolic 49–90
[2020-11-01] MEDS: MIDODRINE HCL 5 MG TABLET PO SCH ×3 (02:34→17:35)
[2020-11-01] MEDS: CISATRACURIUM BESYLATE 100 MG in 0.9%NACL 100ML 100 ML IV SCH ×4 (03:01→23:33)
[2020-11-01 04:33] LABS: BASOPHILS % (AUTO) 0.3 % (0.0-5.0); EOSINOPHILS % (AUTO) 0.3 % (0.0-8.0); HEMATOCRIT 24.6 % (36-48); LYMPHOCYTES % (AUTO) 7.1 % (21.0-51.0); MEAN CORPUSCULAR HGB CONC 30.9 g/dL (32.0-36.0); MEAN CORPUSCULAR VOLUME 100.4 fL (79-99); MONOCYTES % (AUTO) 4.2 % (3.0-13.0); NEUTROPHILS % (AUTO) 83.3 % (40.0-77.0); NUCLEATED RED BLOOD CELLS 4.4 % (0.0-0.19); PLATELET COUNT (AUTO) 127 K/uL (130-400); RED BLOOD CELL COUNT(AUTO) 2.45 MIL/uL (4.00-5.50); RED CELL DISTRIBUTION WIDTH 22.1 % (11.0-15.5); WHITE BLOOD COUNT (AUTO) 7.9 K/uL (4.8-10.8)
[2020-11-01 04:49] LABS: ALBUMIN 2.3 g/dL (3.5-5.0); BILIRUBIN,TOTAL 0.8 mg/dL (0.2-1.0); CREATININE 0.6 mg/dL (0.5-1.5); CRP QUANTITATIVE 42.7 mg/L (0.00-9.0); POTASSIUM 4.1 mmol/L (3.5-5.1); TOTAL PROTEIN, SERUM 5.4 g/dL (6.0-8.3)
[2020-11-01] MEDS: METOCLOPRAMIDE 5 MG TABLET PO SCH ×3 (05:38→17:35)
[2020-11-01 09:31] LABS: ABG BASE EXCESS 9.1 mmol/L (-2.0-3.0); ABG HCO3 33.3 mmol/L (21.0-28.0); ABG OXYGEN SATURATION 90.5 % (95.0-99.0); ABG PCO2 45 mmHg (32-45)
[2020-11-01] MEDS: FONDAPARINUX SODIUM 2.5 MG/0.5 ML SQ SCH (09:55)
[2020-11-01] MEDS: PANTOPRAZOLE 40 MG/VIAL IVP SCH (09:56)
[2020-11-01] MEDS: SOLU-MEDROL 40MG VIAL IVP SCH ×2 (09:56→20:40)
[2020-11-01] MEDS: FUROSEMIDE 20MG VIAL IV SCH (09:56)
[2020-11-01] MEDS: MIDAZOLAM 100MG-0.9% NS 100ML 100 ML IV SCH (10:07)
[2020-11-01] MEDS: FONDAPARINUX SODIUM 7.5 MG/0.6 ML SQ SCH (11:00)
[2020-11-01] MEDS: KETAMINE 50MG/ML SYRINGE 500 MG in 0.9% NACL 500ML IV.SOLN 500 ML IV SCH (14:35)
[2020-11-01] MEDS: FENTANYL 2500MCG+NS 250ML 250 ML IV SCH (20:40)
[2020-11-02] VITALS (27 sets, daily range): BP systolic 72–159; BP diastolic 30–100
[2020-11-02] MEDS: MIDAZOLAM 100MG-0.9% NS 100ML 100 ML IV SCH ×2 (00:27→11:02)
[2020-11-02] MEDS: MIDODRINE HCL 5 MG TABLET PO SCH ×3 (02:00→16:54)
[2020-11-02 04:15] LABS: ABG BASE EXCESS 9.1 mmol/L (-2.0-3.0); ABG HCO3 33.9 mmol/L (21.0-28.0); ABG OXYGEN SATURATION 82.8 % (95.0-99.0); ABG PCO2 49 mmHg (32-45)
[2020-11-02 04:36] LABS: BASOPHILS % (AUTO) 0.2 % (0.0-5.0); HEMATOCRIT 24.3 % (36-48); MEAN CORPUSCULAR HGB CONC 30.9 g/dL (32.0-36.0); MEAN CORPUSCULAR VOLUME 100.4 fL (79-99); MONOCYTES % (AUTO) 5.9 % (3.0-13.0); NEUTROPHILS % (AUTO) 82.6 % (40.0-77.0); NUCLEATED RED BLOOD CELLS 3.2 % (0.0-0.19); PLATELET COUNT (AUTO) 133 K/uL (130-400); RED BLOOD CELL COUNT(AUTO) 2.42 MIL/uL (4.00-5.50); RED CELL DISTRIBUTION WIDTH 22.6 % (11.0-15.5); WHITE BLOOD COUNT (AUTO) 6.3 K/uL (4.8-10.8)
[2020-11-02 05:02] LABS: ALBUMIN 2.3 g/dL (3.5-5.0); BILIRUBIN,TOTAL 0.7 mg/dL (0.2-1.0); CREATININE 0.4 mg/dL (0.5-1.5); CRP QUANTITATIVE 37.2 mg/L (0.00-9.0); POTASSIUM 4.3 mmol/L (3.5-5.1); TOTAL PROTEIN, SERUM 5.2 g/dL (6.0-8.3)
[2020-11-02] MEDS: CISATRACURIUM BESYLATE 100 MG in 0.9%NACL 100ML 100 ML IV SCH ×5 (05:08→21:03)
[2020-11-02] MEDS: METOCLOPRAMIDE 5 MG TABLET PO SCH ×3 (06:35→16:53)
[2020-11-02] MEDS: PANTOPRAZOLE 40 MG/VIAL IVP SCH (09:06)
[2020-11-02] MEDS: SOLU-MEDROL 40MG VIAL IVP SCH ×2 (09:07→20:02)
[2020-11-02] MEDS: FUROSEMIDE 20MG VIAL IV SCH (09:07)
[2020-11-02] MEDS: FONDAPARINUX SODIUM 7.5 MG/0.6 ML SQ SCH (09:07)
[2020-11-02] MEDS: FONDAPARINUX SODIUM 2.5 MG/0.5 ML SQ SCH (09:08)
[2020-11-02] MEDS: FENTANYL 2500MCG+NS 250ML 250 ML IV SCH ×2 (11:20→21:04)
[2020-11-02] MEDS ORDERED: PHARMACY COMMUNICATION MISC SCH (11:30)
[2020-11-02] MEDS ORDERED: VASOPRESSIN 20 UNITS in 0.9%NACL 100ML 100 ML IV SCH (15:30)
[2020-11-02] MEDS: NOREPINEPHRIN 4MG/NS 250ML 250 ML IV SCH (16:57)
[2020-11-02] MEDS ORDERED: CISATRACURIUM BESYLATE 100 MG in 0.9%NACL 100ML 100 ML IV SCH (18:30)
[2020-11-03] VITALS (24 sets, daily range): BP systolic 85–130; BP diastolic 45–91
[2020-11-03] MEDS: HYDROCORTISONE SOD SUCCINATE 100 MG/2 ML VIAL IV SCH ×5 (00:42→23:37)
[2020-11-03] MEDS: MIDAZOLAM 100MG-0.9% NS 100ML 100 ML IV SCH ×2 (00:44→07:40)
[2020-11-03] MEDS: CISATRACURIUM BESYLATE 100 MG in 0.9%NACL 100ML 100 ML IV SCH ×6 (02:27→19:48)
[2020-11-03] MEDS: MIDODRINE HCL 5 MG TABLET PO SCH ×3 (02:41→18:13)
[2020-11-03 03:55] LABS: ABG BASE EXCESS 2.6 mmol/L (-2.0-3.0); ABG HCO3 28.6 mmol/L (21.0-28.0); ABG OXYGEN SATURATION 96.9 % (95.0-99.0); ABG PCO2 52 mmHg (32-45)
[2020-11-03 04:59] LABS: BASOPHILS % (AUTO) 0.5 % (0.0-5.0); EOSINOPHILS % (AUTO) 0.7 % (0.0-8.0); HEMATOCRIT 26.7 % (36-48); LYMPHOCYTES % (AUTO) 8.4 % (21.0-51.0); MEAN CORPUSCULAR HEMOGLOBIN 30.9 pg (27.0-33.0); MEAN CORPUSCULAR HGB CONC 29.6 g/dL (32.0-36.0); MEAN CORPUSCULAR VOLUME 104.3 fL (79-99); MONOCYTES % (AUTO) 7.1 % (3.0-13.0); NEUTROPHILS % (AUTO) 77.5 % (40.0-77.0); NUCLEATED RED BLOOD CELLS 8.8 % (0.0-0.19); PLATELET COUNT (AUTO) 184 K/uL (130-400); RED BLOOD CELL COUNT(AUTO) 2.56 MIL/uL (4.00-5.50); RED CELL DISTRIBUTION WIDTH 23.6 % (11.0-15.5); WHITE BLOOD COUNT (AUTO) 10.5 K/uL (4.8-10.8)
[2020-11-03] MEDS: METOCLOPRAMIDE 5 MG TABLET PO SCH ×3 (05:24→17:00)
[2020-11-03 05:33] LABS: BAND NEUTROPHILS % (MANUAL) 11 % (0-2); LYMPHOCYTES % (MANUAL) 7 % (22-44); MAN.DIFF COMMENT-IMPRESSION MANUAL DIFFERENTIAL; MONOCYTES % (MANUAL) 3 % (2-9); PLATELET MORPHOLOGY COMMENT ADEQUATE; SEGMENTED NEUTROPHILS % 79 % (40-70)
[2020-11-03 05:41] LABS: % IRON SATURATION 32.5 % (22-44)
[2020-11-03 06:01] LABS: ALBUMIN 2.4 g/dL (3.5-5.0); CREATININE 0.7 mg/dL (0.5-1.5); POTASSIUM 4.2 mmol/L (3.5-5.1); TOTAL PROTEIN, SERUM 5.5 g/dL (6.0-8.3)
[2020-11-03 06:33] LABS: BILIRUBIN,TOTAL 0.6 mg/dL (0.2-1.0)
[2020-11-03] MEDS: FENTANYL 2500MCG+NS 250ML 250 ML IV SCH ×3 (06:56→23:37)
[2020-11-03] MEDS: PANTOPRAZOLE 40 MG/VIAL IVP SCH (07:42)
[2020-11-03] MEDS: SOLU-MEDROL 40MG VIAL IVP SCH ×2 (07:42→19:47)
[2020-11-03] MEDS: FUROSEMIDE 20MG VIAL IV SCH (07:42)
[2020-11-03] MEDS: FONDAPARINUX SODIUM 7.5 MG/0.6 ML SQ SCH (07:43)
[2020-11-03] MEDS: FONDAPARINUX SODIUM 2.5 MG/0.5 ML SQ SCH (07:43)
[2020-11-03] MEDS: PROPOFOL 1000 MG/100 ML 100 ML IV PRN (18:30)
[2020-11-04] VITALS (30 sets, daily range): BP systolic 66–130; BP diastolic 52–71
[2020-11-04] MEDS: MIDODRINE HCL 5 MG TABLET PO SCH ×3 (01:36→17:10)
[2020-11-04] MEDS: KETAMINE 50MG/ML SYRINGE 500 MG in 0.9% NACL 500ML IV.SOLN 500 ML IV SCH (02:41)
[2020-11-04] MEDS: NOREPINEPHRIN 4MG/NS 250ML 250 ML IV SCH (02:41)
[2020-11-04] MEDS: CISATRACURIUM BESYLATE 100 MG in 0.9%NACL 100ML 100 ML IV SCH ×5 (02:54→19:36)
[2020-11-04] MEDS: MIDAZOLAM 100MG-0.9% NS 100ML 100 ML IV SCH ×2 (03:00→18:02)
[2020-11-04 05:16] LABS: ABG BASE EXCESS 4.4 mmol/L (-2.0-3.0); ABG HCO3 28.5 mmol/L (21.0-28.0); ABG OXYGEN SATURATION 93.8 % (95.0-99.0); ABG PCO2 40 mmHg (32-45)
[2020-11-04] MEDS: HYDROCORTISONE SOD SUCCINATE 100 MG/2 ML VIAL IV SCH ×4 (06:18→23:12)
[2020-11-04] MEDS: PANTOPRAZOLE 40 MG/VIAL IVP SCH (08:03)
[2020-11-04] MEDS: METOCLOPRAMIDE 5 MG TABLET PO SCH ×3 (08:03→16:12)
[2020-11-04] MEDS: SOLU-MEDROL 40MG VIAL IVP SCH ×2 (08:03→20:52)
[2020-11-04] MEDS: FUROSEMIDE 20MG VIAL IV SCH (08:03)
[2020-11-04] MEDS: FONDAPARINUX SODIUM 7.5 MG/0.6 ML SQ SCH (08:30)
[2020-11-04] MEDS: FONDAPARINUX SODIUM 2.5 MG/0.5 ML SQ SCH (08:30)
[2020-11-04 08:33] LABS: ALBUMIN 2.3 g/dL (3.5-5.0); BILIRUBIN,TOTAL 0.5 mg/dL (0.2-1.0); CREATININE 0.5 mg/dL (0.5-1.5); POTASSIUM 3.8 mmol/L (3.5-5.1); TOTAL PROTEIN, SERUM 4.7 g/dL (6.0-8.3)
[2020-11-04] MEDS: FENTANYL 2500MCG+NS 250ML 250 ML IV SCH ×3 (09:09→23:11)
[2020-11-04 11:33] LABS: MEAN CORPUSCULAR HEMOGLOBIN 31.2 pg (27.0-33.0); MEAN CORPUSCULAR VOLUME 103.9 fL (79-99); NUCLEATED RED BLOOD CELLS 5.9 % (0.0-0.19); PLATELET COUNT (AUTO) 175 K/uL (130-400); RED BLOOD CELL COUNT(AUTO) 2.31 MIL/uL (4.00-5.50); RED CELL DISTRIBUTION WIDTH 24.3 % (11.0-15.5); WHITE BLOOD COUNT (AUTO) 9.7 K/uL (4.8-10.8)
[2020-11-04 12:33] LABS: BAND NEUTROPHILS % (MANUAL) 3 % (0-2); LYMPHOCYTES % (MANUAL) 8 % (22-44); MAN.DIFF COMMENT-IMPRESSION MANUAL DIFFERENTIAL; MONOCYTES % (MANUAL) 3 % (2-9); SEGMENTED NEUTROPHILS % 86 % (40-70)
[2020-11-04 12:34] LABS: PLATELET MORPHOLOGY COMMENT ADEQUATE
[2020-11-04] MEDS ORDERED: POTASSIUM CHLORIDE 10% ELIXIR 20 MEQ/15 ML UDCUP PO ONE (18:00)
[2020-11-05] VITALS (24 sets, daily range): BP systolic 90–143; BP diastolic 53–80
[2020-11-05] MEDS: CISATRACURIUM BESYLATE 100 MG in 0.9%NACL 100ML 100 ML IV SCH ×5 (03:36→20:31)
[2020-11-05 03:48] LABS: ABG HCO3 28.2 mmol/L (21.0-28.0); ABG OXYGEN SATURATION 93.4 % (95.0-99.0); ABG PCO2 41 mmHg (32-45)
[2020-11-05 05:59] LABS: BASOPHILS % (AUTO) 0.3 % (0.0-5.0); EOSINOPHILS % (AUTO) 0.7 % (0.0-8.0); LYMPHOCYTES % (AUTO) 5.3 % (21.0-51.0); MEAN CORPUSCULAR HEMOGLOBIN 31.2 pg (27.0-33.0); MEAN CORPUSCULAR HGB CONC 29.6 g/dL (32.0-36.0); MEAN CORPUSCULAR VOLUME 105.3 fL (79-99); MONOCYTES % (AUTO) 3.8 % (3.0-13.0); NEUTROPHILS % (AUTO) 84.7 % (40.0-77.0); NUCLEATED RED BLOOD CELLS 7.4 % (0.0-0.19); PLATELET COUNT (AUTO) 185 K/uL (130-400); RED BLOOD CELL COUNT(AUTO) 2.47 MIL/uL (4.00-5.50); RED CELL DISTRIBUTION WIDTH 24.4 % (11.0-15.5); WHITE BLOOD COUNT (AUTO) 10.7 K/uL (4.8-10.8)
[2020-11-05 06:22] LABS: ALBUMIN 2.4 g/dL (3.5-5.0); BILIRUBIN,TOTAL 0.7 mg/dL (0.2-1.0); CREATININE 0.4 mg/dL (0.5-1.5); CRP QUANTITATIVE 7.8 mg/L (0.00-9.0); POTASSIUM 4.1 mmol/L (3.5-5.1); TOTAL PROTEIN, SERUM 5.1 g/dL (6.0-8.3)
[2020-11-05] MEDS: HYDROCORTISONE SOD SUCCINATE 100 MG/2 ML VIAL IV SCH ×4 (06:23→23:32)
[2020-11-05] MEDS: METOCLOPRAMIDE 5 MG TABLET PO SCH ×3 (06:24→16:10)
[2020-11-05 07:18] LABS: LYMPHOCYTES % (MANUAL) 1 % (22-44); MONOCYTES % (MANUAL) 3 % (2-9); SEGMENTED NEUTROPHILS % 96 % (40-70)
[2020-11-05 07:19] LABS: MAN.DIFF COMMENT-IMPRESSION MANUAL DIFFERENTIAL; PLATELET MORPHOLOGY COMMENT ADEQUATE
[2020-11-05] MEDS: MIDAZOLAM 100MG-0.9% NS 100ML 100 ML IV SCH (07:50)
[2020-11-05] MEDS: FENTANYL 2500MCG+NS 250ML 250 ML IV SCH ×3 (07:51→23:27)
[2020-11-05] MEDS: FUROSEMIDE 20MG VIAL IV SCH (08:47)
[2020-11-05] MEDS: SOLU-MEDROL 40MG VIAL IVP SCH (08:47)
[2020-11-05] MEDS: PANTOPRAZOLE 40 MG/VIAL IVP SCH (08:47)
[2020-11-05] MEDS: FONDAPARINUX SODIUM 2.5 MG/0.5 ML SQ SCH (08:49)
[2020-11-05] MEDS: FONDAPARINUX SODIUM 7.5 MG/0.6 ML SQ SCH (08:49)
[2020-11-06] VITALS (22 sets, daily range): BP systolic 80–142; BP diastolic 46–86
[2020-11-06] MEDS: CISATRACURIUM BESYLATE 100 MG in 0.9%NACL 100ML 100 ML IV SCH ×6 (00:17→22:42)
[2020-11-06 03:35] LABS: ABG BASE EXCESS 8.6 mmol/L (-2.0-3.0); ABG HCO3 33.8 mmol/L (21.0-28.0); ABG OXYGEN SATURATION 91.1 % (95.0-99.0); ABG PCO2 51 mmHg (32-45)
[2020-11-06 04:40] LABS: BASOPHILS % (AUTO) 0.3 % (0.0-5.0); EOSINOPHILS % (AUTO) 0.5 % (0.0-8.0); HEMATOCRIT 25.6 % (36-48); LYMPHOCYTES % (AUTO) 6.9 % (21.0-51.0); MEAN CORPUSCULAR HEMOGLOBIN 31.9 pg (27.0-33.0); MEAN CORPUSCULAR HGB CONC 30.9 g/dL (32.0-36.0); MEAN CORPUSCULAR VOLUME 103.2 fL (79-99); MONOCYTES % (AUTO) 4.2 % (3.0-13.0); NEUTROPHILS % (AUTO) 82.4 % (40.0-77.0); NUCLEATED RED BLOOD CELLS 6.9 % (0.0-0.19); PLATELET COUNT (AUTO) 189 K/uL (130-400); RED BLOOD CELL COUNT(AUTO) 2.48 MIL/uL (4.00-5.50); RED CELL DISTRIBUTION WIDTH 24.9 % (11.0-15.5); WHITE BLOOD COUNT (AUTO) 11.5 K/uL (4.8-10.8)
[2020-11-06 04:53] LABS: ALANINE AMINOTRANSFERASE 178 U/L (12-78); ALBUMIN 2.4 g/dL (3.5-5.0); ASPARTATE AMINOTRANSFERASE 61 U/L (10-37); BILIRUBIN,TOTAL 0.7 mg/dL (0.2-1.0); CARBON DIOXIDE 35 mmol/L (21-32); CHLORIDE 108 mmol/L (101-111); CREATININE 0.4 mg/dL (0.5-1.5); GLOMERULAR FILTR. RATE CALC 175 mL/min (>60); GLUCOSE,RANDOM 160 mg/dL (70-105); POTASSIUM 3.8 mmol/L (3.5-5.1); SODIUM SERUM 145 mmol/L (136-145); TOTAL PROTEIN, SERUM 5.2 g/dL (6.0-8.3); UREA NITROGEN, BLOOD 22 mg/dL (7-18)
[2020-11-06 04:54] LABS: CRP QUANTITATIVE < 2.00 mg/L (0.00-9.0)
[2020-11-06] MEDS: MIDAZOLAM 100MG-0.9% NS 100ML 100 ML IV SCH ×2 (05:19→14:59)
[2020-11-06] MEDS: HYDROCORTISONE SOD SUCCINATE 100 MG/2 ML VIAL IV SCH ×3 (05:31→17:29)
[2020-11-06] MEDS: METOCLOPRAMIDE 5 MG TABLET PO SCH ×3 (05:31→16:02)
[2020-11-06] MEDS: FENTANYL 2500MCG+NS 250ML 250 ML IV SCH ×2 (07:59→14:59)
[2020-11-06] MEDS: FUROSEMIDE 20MG VIAL IV SCH (07:59)
[2020-11-06] MEDS: PANTOPRAZOLE 40 MG/VIAL IVP SCH (07:59)
[2020-11-06] MEDS: FONDAPARINUX SODIUM 2.5 MG/0.5 ML SQ SCH (08:50)
[2020-11-06] MEDS: FONDAPARINUX SODIUM 7.5 MG/0.6 ML SQ SCH (08:50)
[2020-11-06] MEDS: NOREPINEPHRIN 4MG/NS 250ML 250 ML IV SCH (12:07)
[2020-11-07] VITALS (24 sets, daily range): BP systolic 89–147; BP diastolic 58–98
[2020-11-07] MEDS: FENTANYL 2500MCG+NS 250ML 250 ML IV SCH ×2 (01:27→08:16)
[2020-11-07] MEDS: HYDROCORTISONE SOD SUCCINATE 100 MG/2 ML VIAL IV SCH ×4 (01:28→17:34)
[2020-11-07 03:31] LABS: ABG BASE EXCESS 6.2 mmol/L (-2.0-3.0); ABG HCO3 31.4 mmol/L (21.0-28.0); ABG OXYGEN SATURATION 95.3 % (95.0-99.0); ABG PCO2 49 mmHg (32-45)
[2020-11-07] MEDS: CISATRACURIUM BESYLATE 100 MG in 0.9%NACL 100ML 100 ML IV SCH ×3 (03:40→21:24)
[2020-11-07 05:17] LABS: BASOPHILS % (AUTO) 0.3 % (0.0-5.0); EOSINOPHILS % (AUTO) 0.1 % (0.0-8.0); HEMATOCRIT 26.9 % (36-48); LYMPHOCYTES % (AUTO) 5.9 % (21.0-51.0); MEAN CORPUSCULAR HEMOGLOBIN 31.9 pg (27.0-33.0); MEAN CORPUSCULAR HGB CONC 30.5 g/dL (32.0-36.0); MEAN CORPUSCULAR VOLUME 104.7 fL (79-99); MONOCYTES % (AUTO) 3.6 % (3.0-13.0); NEUTROPHILS % (AUTO) 84.4 % (40.0-77.0); NUCLEATED RED BLOOD CELLS 6.3 % (0.0-0.19); PLATELET COUNT (AUTO) 162 K/uL (130-400); RED BLOOD CELL COUNT(AUTO) 2.57 MIL/uL (4.00-5.50); RED CELL DISTRIBUTION WIDTH 24.7 % (11.0-15.5); WHITE BLOOD COUNT (AUTO) 9.4 K/uL (4.8-10.8)
[2020-11-07 06:10] LABS: ALBUMIN 2.3 g/dL (3.5-5.0); BILIRUBIN,TOTAL 0.9 mg/dL (0.2-1.0); CREATININE 0.4 mg/dL (0.5-1.5); POTASSIUM 3.6 mmol/L (3.5-5.1)
[2020-11-07 06:32] LABS: LYMPHOCYTES % (MANUAL) 6 % (22-44); MONOCYTES % (MANUAL) 2 % (2-9); SEGMENTED NEUTROPHILS % 92 % (40-70)
[2020-11-07 06:33] LABS: MAN.DIFF COMMENT-IMPRESSION MANUAL DIFFERENTIAL; PLATELET MORPHOLOGY COMMENT ADEQUATE
[2020-11-07] MEDS: METOCLOPRAMIDE 5 MG TABLET PO SCH ×3 (08:16→17:34)
[2020-11-07] MEDS: FUROSEMIDE 20MG VIAL IV SCH (08:16)
[2020-11-07] MEDS: PANTOPRAZOLE 40 MG/VIAL IVP SCH (08:17)
[2020-11-07] MEDS: FONDAPARINUX SODIUM 2.5 MG/0.5 ML SQ SCH (08:19)
[2020-11-07] MEDS: FONDAPARINUX SODIUM 7.5 MG/0.6 ML SQ SCH (08:20)
[2020-11-07] MEDS: POTASSIUM CHLORIDE 20MEQ/100ML 100 ML IV PRN (12:57)
[2020-11-07] MEDS: NOREPINEPHRIN 4MG/NS 250ML 250 ML IV SCH (14:20)
[2020-11-07] MEDS: MIDAZOLAM 100MG-0.9% NS 100ML 100 ML IV SCH (16:52)
[2020-11-07] MEDS ORDERED: PHARMACY COMMUNICATION MISC SCH (18:00)
[2020-11-07] MEDS ORDERED: FENTANYL 2500MCG+NS 250ML 250 ML IV ONE (18:07)
[2020-11-08] VITALS (24 sets, daily range): BP systolic 80–146; BP diastolic 39–98
[2020-11-08] MEDS: HYDROCORTISONE SOD SUCCINATE 100 MG/2 ML VIAL IV SCH ×2 (01:23→06:23)
[2020-11-08] MEDS: CISATRACURIUM BESYLATE 100 MG in 0.9%NACL 100ML 100 ML IV SCH ×6 (01:32→23:00)
[2020-11-08] MEDS ORDERED: FENTANYL CITRATE PF 0.05 MG/ML 2,500 MCG in 0.9%NACL 100ML 250 ML IVPB SCH ×2 (05:00→11:30)
[2020-11-08 06:36] LABS: BASOPHILS % (AUTO) 0.3 % (0.0-5.0); EOSINOPHILS % (AUTO) 0.1 % (0.0-8.0); HEMATOCRIT 26.7 % (36-48); LYMPHOCYTES % (AUTO) 7.7 % (21.0-51.0); MEAN CORPUSCULAR HEMOGLOBIN 31.4 pg (27.0-33.0); MEAN CORPUSCULAR HGB CONC 30.3 g/dL (32.0-36.0); MEAN CORPUSCULAR VOLUME 103.5 fL (79-99); MONOCYTES % (AUTO) 4.1 % (3.0-13.0); NEUTROPHILS % (AUTO) 83.3 % (40.0-77.0); NUCLEATED RED BLOOD CELLS 1.9 % (0.0-0.19); PLATELET COUNT (AUTO) 151 K/uL (130-400); RED BLOOD CELL COUNT(AUTO) 2.58 MIL/uL (4.00-5.50); RED CELL DISTRIBUTION WIDTH 24.6 % (11.0-15.5); WHITE BLOOD COUNT (AUTO) 7.5 K/uL (4.8-10.8)
[2020-11-08 07:04] LABS: ABG BASE EXCESS 8.1 mmol/L (-2.0-3.0); ABG HCO3 32.7 mmol/L (21.0-28.0); ABG OXYGEN SATURATION 88.5 % (95.0-99.0); ABG PCO2 46 mmHg (32-45)
[2020-11-08 07:27] LABS: ALBUMIN 2.2 g/dL (3.5-5.0); BILIRUBIN,TOTAL 0.8 mg/dL (0.2-1.0); CREATININE 0.4 mg/dL (0.5-1.5); CRP QUANTITATIVE 46.6 mg/L (0.00-9.0); POTASSIUM 3.4 mmol/L (3.5-5.1)
[2020-11-08] MEDS: METOCLOPRAMIDE 5 MG TABLET PO SCH ×3 (07:30→17:38)
[2020-11-08] MEDS: PANTOPRAZOLE 40 MG/VIAL IVP SCH (09:23)
[2020-11-08] MEDS: FUROSEMIDE 20MG VIAL IV SCH (09:23)
[2020-11-08] MEDS: POTASSIUM CHLORIDE 20MEQ/100ML 100 ML IV PRN (09:24)
[2020-11-08] MEDS: FONDAPARINUX SODIUM 2.5 MG/0.5 ML SQ SCH (09:25)
[2020-11-08] MEDS: FENTANYL 2500MCG+NS 250ML 250 ML IV SCH ×2 (11:47→18:46)
[2020-11-08] MEDS: SOLU-MEDROL 40MG VIAL IVP SCH ×2 (13:19→21:35)
[2020-11-08] MEDS ORDERED: VANCOMYCIN PROTOCOL PER PHARMACY IV SCH (14:00)
[2020-11-08] MEDS: MEROPENEM 1 GM VIAL IVP SCH (14:35)
[2020-11-08] MEDS: MIDAZOLAM 100MG-0.9% NS 100ML 100 ML IV SCH (14:54)
[2020-11-08] MEDS ORDERED: VANCOMYCIN 1.75GM/250ML NS IV ONE ×2 (15:00)
[2020-11-08] MEDS: NOREPINEPHRIN 4MG/NS 250ML 250 ML IV SCH (23:01)
[2020-11-09] VITALS (24 sets, daily range): BP systolic 83–159; BP diastolic 46–103
[2020-11-09] MEDS: FUROSEMIDE 20MG VIAL IV SCH ×3 (01:47→19:21)
[2020-11-09] MEDS: MEROPENEM 1 GM VIAL IVP SCH ×2 (01:47→13:52)
[2020-11-09] MEDS: CISATRACURIUM BESYLATE 100 MG in 0.9%NACL 100ML 100 ML IV SCH ×4 (04:01→22:47)
[2020-11-09] MEDS: FENTANYL 2500MCG+NS 250ML 250 ML IV SCH ×2 (05:09→19:39)
[2020-11-09] MEDS ORDERED: 0.9%NACL 100ML 100 ML IV SCH (06:00)
[2020-11-09] MEDS ORDERED: VANCOMYCIN 500MG+NS 100ML IVPB IV SCH (06:00)
[2020-11-09 06:43] LABS: BASOPHILS % (AUTO) 0.2 % (0.0-5.0); HEMATOCRIT 29.5 % (36-48); LYMPHOCYTES % (AUTO) 9.7 % (21.0-51.0); MEAN CORPUSCULAR HEMOGLOBIN 32.3 pg (27.0-33.0); MEAN CORPUSCULAR HGB CONC 31.2 g/dL (32.0-36.0); MEAN CORPUSCULAR VOLUME 103.5 fL (79-99); MONOCYTES % (AUTO) 3.9 % (3.0-13.0); NEUTROPHILS % (AUTO) 81.9 % (40.0-77.0); NUCLEATED RED BLOOD CELLS 1.5 % (0.0-0.19); PLATELET COUNT (AUTO) 170 K/uL (130-400); RED BLOOD CELL COUNT(AUTO) 2.85 MIL/uL (4.00-5.50); RED CELL DISTRIBUTION WIDTH 24.2 % (11.0-15.5); WHITE BLOOD COUNT (AUTO) 9.6 K/uL (4.8-10.8)
[2020-11-09 06:56] LABS: ABG BASE EXCESS 11.1 mmol/L (-2.0-3.0); ABG HCO3 36.1 mmol/L (21.0-28.0); ABG OXYGEN SATURATION 91.6 % (95.0-99.0); ABG PCO2 51 mmHg (32-45)
[2020-11-09 07:01] LABS: ALBUMIN 2.5 g/dL (3.5-5.0); BILIRUBIN,TOTAL 0.9 mg/dL (0.2-1.0); CREATININE 0.4 mg/dL (0.5-1.5); POTASSIUM 3.2 mmol/L (3.5-5.1); TOTAL PROTEIN, SERUM 5.4 g/dL (6.0-8.3)
[2020-11-09] MEDS: POTASSIUM CHLORIDE 20MEQ/100ML 100 ML IV PRN ×2 (08:49→09:42)
[2020-11-09] MEDS: SOLU-MEDROL 40MG VIAL IVP SCH ×2 (08:56→21:06)
[2020-11-09] MEDS: PANTOPRAZOLE 40 MG/VIAL IVP SCH (08:56)
[2020-11-09] MEDS: MIDODRINE HCL 5 MG TABLET PO SCH ×3 (09:41→21:06)
[2020-11-09] MEDS: METOCLOPRAMIDE 5 MG TABLET PO SCH ×3 (09:41→19:20)
[2020-11-09] MEDS: FONDAPARINUX SODIUM 2.5 MG/0.5 ML SQ SCH (09:44)
[2020-11-09] MEDS: MIDAZOLAM 100MG-0.9% NS 100ML 100 ML IV SCH (12:16)
[2020-11-09] MEDS ORDERED: COMPOUND IV REFRIGERATED 1 EACH IVSOLN MISC PRN (18:30)
[2020-11-09] MEDS: VANCOMYCIN 1.5GM/NS 250ML IV SCH ×2 (21:07)
[2020-11-10] VITALS (26 sets, daily range): BP systolic 48–141; BP diastolic 24–95
[2020-11-10] MEDS: NOREPINEPHRIN 4MG/NS 250ML 250 ML IV SCH
[2020-11-10] MEDS: FUROSEMIDE 20MG VIAL IV SCH ×3 (01:00→17:58)
[2020-11-10] MEDS: MEROPENEM 1 GM VIAL IVP SCH (02:00)
[2020-11-10] MEDS: CISATRACURIUM BESYLATE 100 MG in 0.9%NACL 100ML 100 ML IV SCH ×2 (03:41→07:50)
[2020-11-10 06:15] LABS: BASOPHILS % (AUTO) 0.2 % (0.0-5.0); HEMATOCRIT 30.7 % (36-48); LYMPHOCYTES % (AUTO) 10.3 % (21.0-51.0); MEAN CORPUSCULAR HEMOGLOBIN 31.5 pg (27.0-33.0); MEAN CORPUSCULAR HGB CONC 30.9 g/dL (32.0-36.0); MEAN CORPUSCULAR VOLUME 101.7 fL (79-99); MONOCYTES % (AUTO) 4.7 % (3.0-13.0); NUCLEATED RED BLOOD CELLS 2.1 % (0.0-0.19); PLATELET COUNT (AUTO) 197 K/uL (130-400); RED BLOOD CELL COUNT(AUTO) 3.02 MIL/uL (4.00-5.50); RED CELL DISTRIBUTION WIDTH 23.7 % (11.0-15.5); WHITE BLOOD COUNT (AUTO) 8.8 K/uL (4.8-10.8)
[2020-11-10 06:34] LABS: ALANINE AMINOTRANSFERASE 178 U/L (12-78); ALBUMIN 2.6 g/dL (3.5-5.0); ASPARTATE AMINOTRANSFERASE 40 U/L (10-37); BILIRUBIN,TOTAL 0.8 mg/dL (0.2-1.0); CARBON DIOXIDE 36 mmol/L (21-32); CHLORIDE 101 mmol/L (101-111); CREATININE 0.4 mg/dL (0.5-1.5); GLOMERULAR FILTR. RATE CALC 175 mL/min (>60); GLUCOSE,RANDOM 173 mg/dL (70-105); PHOSPHORUS 2.8 mg/dL (2.5-4.9); POTASSIUM 3.5 mmol/L (3.5-5.1); SODIUM SERUM 143 mmol/L (136-145); TOTAL PROTEIN, SERUM 5.7 g/dL (6.0-8.3); UREA NITROGEN, BLOOD 17 mg/dL (7-18)
[2020-11-10 06:37] LABS: AMMONIA < 3 umol/L (11-32)
[2020-11-10 06:44] LABS: B-TYPE NATRIURETIC PEPTIDE 66 pg/mL (0-100)
[2020-11-10 07:26] LABS: ABG BASE EXCESS 10.1 mmol/L (-2.0-3.0); ABG HCO3 35.4 mmol/L (21.0-28.0); ABG OXYGEN SATURATION 91.3 % (95.0-99.0); ABG PCO2 52 mmHg (32-45)
[2020-11-10] MEDS: FOLIC ACID 1 MG TABLET PO SCH ×2 (08:00→11:03)
[2020-11-10] MEDS: MIDAZOLAM 100MG-0.9% NS 100ML 100 ML IV SCH (08:02)
[2020-11-10] MEDS: MIDODRINE HCL 5 MG TABLET PO SCH ×3 (08:02→20:01)
[2020-11-10] MEDS: SOLU-MEDROL 40MG VIAL IVP SCH ×2 (08:03→20:00)
[2020-11-10] MEDS: PANTOPRAZOLE 40 MG/VIAL IVP SCH (08:03)
[2020-11-10] MEDS: METOCLOPRAMIDE 5 MG TABLET PO SCH ×3 (08:03→17:57)
[2020-11-10] MEDS: FONDAPARINUX SODIUM 2.5 MG/0.5 ML SQ SCH (08:26)
[2020-11-10] MEDS: VANCOMYCIN 1.5GM/NS 250ML IV SCH ×4 (08:26→20:00)
[2020-11-10] MEDS: POTASSIUM CHLORIDE 10% ELIXIR 20 MEQ/15 ML UDCUP NG SCH (08:51)
[2020-11-10] MEDS ORDERED: KCL 20 MEQ ERTAB PO SCH (09:00)
[2020-11-10] MEDS: CYANOCOBALAMIN (VITAMIN B-12) 1000 MCG/ML 1ML VIAL IM SCH (09:00)
[2020-11-10] MEDS: FENTANYL 2500MCG+NS 250ML 250 ML IV SCH (11:04)
[2020-11-10] MEDS ORDERED: MAGNESIUM 2GM PREMIX 50ML 50 ML IV ONE (16:11)
[2020-11-11] VITALS (21 sets, daily range): BP systolic 82–127; BP diastolic 41–80
[2020-11-11] MEDS: FUROSEMIDE 20MG VIAL IV SCH ×3 (00:55→17:08)
[2020-11-11] MEDS: NOREPINEPHRIN 4MG/NS 250ML 250 ML IV SCH ×2 (00:58→18:28)
[2020-11-11] MEDS: FENTANYL 2500MCG+NS 250ML 250 ML IV SCH ×2 (03:55→13:44)
[2020-11-11] MEDS: MIDAZOLAM 100MG-0.9% NS 100ML 100 ML IV SCH ×2 (03:56→18:25)
[2020-11-11 06:48] LABS: BASOPHILS % (AUTO) 0.3 % (0.0-5.0); HEMATOCRIT 29.1 % (36-48); LYMPHOCYTES % (AUTO) 11.2 % (21.0-51.0); MEAN CORPUSCULAR HEMOGLOBIN 32.3 pg (27.0-33.0); MEAN CORPUSCULAR HGB CONC 31.3 g/dL (32.0-36.0); MEAN CORPUSCULAR VOLUME 103.2 fL (79-99); NEUTROPHILS % (AUTO) 78.4 % (40.0-77.0); NUCLEATED RED BLOOD CELLS 2.9 % (0.0-0.19); PLATELET COUNT (AUTO) 177 K/uL (130-400); RED BLOOD CELL COUNT(AUTO) 2.82 MIL/uL (4.00-5.50); RED CELL DISTRIBUTION WIDTH 23.7 % (11.0-15.5); WHITE BLOOD COUNT (AUTO) 8.8 K/uL (4.8-10.8)
[2020-11-11 07:03] LABS: INR 1.06 (0.85-1.15); PROTHROMBIN TIME 11.5 SEC (9.6-11.6)
[2020-11-11 07:25] LABS: ALBUMIN 2.6 g/dL (3.5-5.0); BILIRUBIN,TOTAL 0.8 mg/dL (0.2-1.0); CREATININE 0.4 mg/dL (0.5-1.5); MAGNESIUM 2.2 mg/dL (1.80-2.40); POTASSIUM 3.7 mmol/L (3.5-5.1); TOTAL PROTEIN, SERUM 5.6 g/dL (6.0-8.3)
[2020-11-11] MEDS: METOCLOPRAMIDE 5 MG TABLET PO SCH ×3 (07:30→17:07)
[2020-11-11 07:36] LABS: ABG BASE EXCESS 12.8 mmol/L (-2.0-3.0); ABG HCO3 38.1 mmol/L (21.0-28.0); ABG OXYGEN SATURATION 93.8 % (95.0-99.0); ABG PCO2 53 mmHg (32-45)
[2020-11-11] MEDS: FONDAPARINUX SODIUM 2.5 MG/0.5 ML SQ SCH (07:40)
[2020-11-11] MEDS: POTASSIUM CHLORIDE 10% ELIXIR 20 MEQ/15 ML UDCUP NG SCH (07:40)
[2020-11-11] MEDS: MIDODRINE HCL 5 MG TABLET PO SCH ×3 (07:40→21:20)
[2020-11-11] MEDS: FOLIC ACID 1 MG TABLET PO SCH (07:40)
[2020-11-11] MEDS: VANCOMYCIN 1.5GM/NS 250ML IV SCH ×4 (09:00→21:20)
[2020-11-11] MEDS: CYANOCOBALAMIN (VITAMIN B-12) 1000 MCG/ML 1ML VIAL IM SCH (09:00)
[2020-11-11] MEDS: PANTOPRAZOLE 40 MG/VIAL IVP SCH (10:25)
[2020-11-11] MEDS: SOLU-MEDROL 40MG VIAL IVP SCH ×2 (10:25→21:20)
[2020-11-11] MEDS ORDERED: CISATRACURIUM BESYLATE 2 MG/ML 10ML VIAL IVP SCH (14:00)
[2020-11-11] MEDS ORDERED: VECURONIUM 10MG/10ML IV ONE (14:04)
[2020-11-11] MEDS: LIDOCAINE 2%-EPI 1:200,000 20 ML VIAL IJ SCH (14:30)
[2020-11-11 15:18] LABS: ABG BASE EXCESS 13.9 mmol/L (-2.0-3.0); ABG HCO3 36.4 mmol/L (21.0-28.0); ABG PCO2 37 mmHg (32-45)
[2020-11-11] MEDS: MORPHINE 15MG IR TAB PO SCH ×2 (17:07→23:00)
[2020-11-11] MEDS: CLONAZEPAM 1MG TAB PO SCH (21:20)
[2020-11-12] VITALS (23 sets, daily range): BP systolic 82–142; BP diastolic 43–85
[2020-11-12] MEDS: FUROSEMIDE 20MG VIAL IV SCH ×3 (01:13→17:36)
[2020-11-12] MEDS: FENTANYL 2500MCG+NS 250ML 250 ML IV SCH ×2 (01:20→13:48)
[2020-11-12 06:21] LABS: BASOPHILS % (AUTO) 0.3 % (0.0-5.0); HEMATOCRIT 27.2 % (36-48); LYMPHOCYTES % (AUTO) 9.7 % (21.0-51.0); MEAN CORPUSCULAR HEMOGLOBIN 32.2 pg (27.0-33.0); MEAN CORPUSCULAR HGB CONC 31.3 g/dL (32.0-36.0); MONOCYTES % (AUTO) 4.8 % (3.0-13.0); NEUTROPHILS % (AUTO) 82.4 % (40.0-77.0); NUCLEATED RED BLOOD CELLS 2.1 % (0.0-0.19); PLATELET COUNT (AUTO) 171 K/uL (130-400); RED BLOOD CELL COUNT(AUTO) 2.64 MIL/uL (4.00-5.50); RED CELL DISTRIBUTION WIDTH 23.1 % (11.0-15.5); WHITE BLOOD COUNT (AUTO) 8.6 K/uL (4.8-10.8)
[2020-11-12 06:29] LABS: POTASSIUM 3.5 mmol/L (3.5-5.1)
[2020-11-12 06:35] LABS: CREATININE 0.3 mg/dL (0.5-1.5)
[2020-11-12] MEDS: METOCLOPRAMIDE 5 MG TABLET PO SCH ×3 (06:35→17:25)
[2020-11-12] MEDS: MORPHINE 15MG IR TAB PO SCH ×3 (06:35→22:50)
[2020-11-12 06:51] LABS: ALBUMIN 2.6 g/dL (3.5-5.0); BILIRUBIN,TOTAL 0.9 mg/dL (0.2-1.0); CRP QUANTITATIVE 13.8 mg/L (0.00-9.0); TOTAL PROTEIN, SERUM 5.1 g/dL (6.0-8.3)
[2020-11-12 07:53] LABS: ABG BASE EXCESS 13.4 mmol/L (-2.0-3.0); ABG HCO3 38.1 mmol/L (21.0-28.0); ABG OXYGEN SATURATION 92.9 % (95.0-99.0); ABG PCO2 50 mmHg (32-45)
[2020-11-12] MEDS: CYANOCOBALAMIN (VITAMIN B-12) 1000 MCG/ML 1ML VIAL IM SCH (08:29)
[2020-11-12] MEDS: PANTOPRAZOLE 40 MG/VIAL IVP SCH (08:29)
[2020-11-12] MEDS: SOLU-MEDROL 40MG VIAL IVP SCH ×2 (08:29→21:07)
[2020-11-12] MEDS: FOLIC ACID 1 MG TABLET PO SCH (08:30)
[2020-11-12] MEDS: MIDODRINE HCL 5 MG TABLET PO SCH ×3 (08:30→21:07)
[2020-11-12] MEDS: CLONAZEPAM 1MG TAB PO SCH ×2 (08:30→21:07)
[2020-11-12] MEDS: VANCOMYCIN 1.5GM/NS 250ML IV SCH ×4 (08:31→21:06)
[2020-11-12] MEDS: POTASSIUM CHLORIDE 10% ELIXIR 20 MEQ/15 ML UDCUP NG SCH (08:31)
[2020-11-12] MEDS: LIDOCAINE 2%-EPI 1:200,000 20 ML VIAL IJ SCH (12:51)
[2020-11-12] MEDS: MIDAZOLAM 100MG-0.9% NS 100ML 100 ML IV SCH (18:20)
[2020-11-12] MEDS: FONDAPARINUX SODIUM 2.5 MG/0.5 ML SQ SCH (21:08)
[2020-11-13] VITALS (24 sets, daily range): BP systolic 90–154; BP diastolic 42–88
[2020-11-13] MEDS: FUROSEMIDE 20MG VIAL IV SCH ×3 (01:51→17:59)
[2020-11-13] MEDS: FENTANYL 2500MCG+NS 250ML 250 ML IV SCH (02:57)
[2020-11-13] MEDS: MORPHINE 15MG IR TAB PO SCH ×2 (06:15→15:28)
[2020-11-13 06:21] LABS: BASOPHILS % (AUTO) 0.2 % (0.0-5.0); HEMATOCRIT 28.8 % (36-48); LYMPHOCYTES % (AUTO) 9.9 % (21.0-51.0); MEAN CORPUSCULAR HEMOGLOBIN 32.1 pg (27.0-33.0); MEAN CORPUSCULAR HGB CONC 30.6 g/dL (32.0-36.0); MEAN CORPUSCULAR VOLUME 105.1 fL (79-99); MONOCYTES % (AUTO) 3.5 % (3.0-13.0); NEUTROPHILS % (AUTO) 82.5 % (40.0-77.0); NUCLEATED RED BLOOD CELLS 2.6 % (0.0-0.19); PLATELET COUNT (AUTO) 183 K/uL (130-400); RED BLOOD CELL COUNT(AUTO) 2.74 MIL/uL (4.00-5.50); RED CELL DISTRIBUTION WIDTH 23.1 % (11.0-15.5); WHITE BLOOD COUNT (AUTO) 9.5 K/uL (4.8-10.8)
[2020-11-13 06:34] LABS: CRP QUANTITATIVE 15.9 mg/L (0.00-9.0)
[2020-11-13 06:35] LABS: ALBUMIN 2.7 g/dL (3.5-5.0); BILIRUBIN,TOTAL 0.9 mg/dL (0.2-1.0); CREATININE 0.4 mg/dL (0.5-1.5); TOTAL PROTEIN, SERUM 5.6 g/dL (6.0-8.3)
[2020-11-13 07:14] LABS: POTASSIUM 3.5 mmol/L (3.5-5.1)
[2020-11-13 07:25] LABS: ABG BASE EXCESS 12.4 mmol/L (-2.0-3.0); ABG HCO3 36.4 mmol/L (21.0-28.0); ABG OXYGEN SATURATION 93.4 % (95.0-99.0); ABG PCO2 45 mmHg (32-45)
[2020-11-13] MEDS: METOCLOPRAMIDE 5 MG TABLET PO SCH ×3 (08:32→17:59)
[2020-11-13] MEDS: CYANOCOBALAMIN (VITAMIN B-12) 1000 MCG/ML 1ML VIAL IM SCH (08:33)
[2020-11-13] MEDS: MIDODRINE HCL 5 MG TABLET PO SCH ×3 (08:33→21:01)
[2020-11-13] MEDS: FOLIC ACID 1 MG TABLET PO SCH (08:33)
[2020-11-13] MEDS: PANTOPRAZOLE 40 MG/VIAL IVP SCH (08:33)
[2020-11-13] MEDS: CLONAZEPAM 1MG TAB PO SCH ×2 (08:33→21:00)
[2020-11-13] MEDS: SOLU-MEDROL 40MG VIAL IVP SCH ×2 (08:36→21:00)
[2020-11-13] MEDS: POTASSIUM CHLORIDE 10% ELIXIR 20 MEQ/15 ML UDCUP NG SCH (08:42)
[2020-11-13] MEDS: FONDAPARINUX SODIUM 2.5 MG/0.5 ML SQ SCH (08:44)
[2020-11-13] MEDS: VANCOMYCIN 1.5GM/NS 250ML IV SCH ×4 (09:00→20:58)
[2020-11-13] MEDS: DEXMEDETOMIDINE 400MCG/NS100ML IV SCH ×2 (09:40→13:10)
[2020-11-13] MEDS: QUETIAPINE FUMARATE 25 MG TAB PO SCH ×2 (10:32→21:01)
[2020-11-13 11:53] LABS: ABG BASE EXCESS 12.8 mmol/L (-2.0-3.0); ABG HCO3 37.8 mmol/L (21.0-28.0); ABG OXYGEN SATURATION 87.5 % (95.0-99.0); ABG PCO2 52 mmHg (32-45)
[2020-11-13] MEDS ORDERED: POLYETHYLENE GLYCOL 3350 17 GM POWD.PACK PEG SCH (13:00)
[2020-11-13 13:10] LABS: ABG BASE EXCESS 8.4 mmol/L (-2.0-3.0); ABG HCO3 32.9 mmol/L (21.0-28.0); ABG OXYGEN SATURATION 87.5 % (95.0-99.0); ABG PCO2 45 mmHg (32-45)
[2020-11-13] MEDS: DOCUSATE NA 100MG/10ML UDCUP PO SCH ×2 (13:10→21:01)
[2020-11-13 13:25] LABS: MAGNESIUM 1.9 mg/dL (1.80-2.40); POTASSIUM 3.9 mmol/L (3.5-5.1)
[2020-11-13] MEDS ORDERED: PHARMACY COMMUNICATION MISC SCH (14:00)
[2020-11-13] MEDS: LIDOCAINE 2%-EPI 1:200,000 20 ML VIAL IJ SCH (14:13)
[2020-11-13] MEDS ORDERED: FENTANYL 2500MCG+NS 250ML 0 ML IV ONE (14:46)
[2020-11-13] MEDS ORDERED: DOPAMINE HCL 400 MG/D5%-WATER 250 ML IV PRN (16:30)
[2020-11-13] MEDS: ALBUMIN (HUMAN) 25% 50 ML IV SCH (19:34)
[2020-11-14] VITALS (33 sets, daily range): BP systolic 77–130; BP diastolic 40–117
[2020-11-14] MEDS: FUROSEMIDE 20MG VIAL IV SCH ×3 (00:40→17:00)
[2020-11-14] MEDS: MORPHINE 15MG IR TAB PO SCH ×2 (03:50→14:41)
[2020-11-14 05:14] LABS: BASOPHILS % (AUTO) 0.2 % (0.0-5.0); LYMPHOCYTES % (AUTO) 12.7 % (21.0-51.0); MEAN CORPUSCULAR HEMOGLOBIN 31.7 pg (27.0-33.0); MEAN CORPUSCULAR VOLUME 102.1 fL (79-99); MONOCYTES % (AUTO) 3.5 % (3.0-13.0); NEUTROPHILS % (AUTO) 80.3 % (40.0-77.0); NUCLEATED RED BLOOD CELLS 3.4 % (0.0-0.19); PLATELET COUNT (AUTO) 187 K/uL (130-400); RED BLOOD CELL COUNT(AUTO) 2.84 MIL/uL (4.00-5.50); RED CELL DISTRIBUTION WIDTH 22.7 % (11.0-15.5); WHITE BLOOD COUNT (AUTO) 9.8 K/uL (4.8-10.8)
[2020-11-14] MEDS: DOCUSATE NA 100MG/10ML UDCUP PO SCH ×3 (05:22→21:22)
[2020-11-14] MEDS: DEXMEDETOMIDINE 400MCG/NS100ML IV SCH (05:23)
[2020-11-14 05:38] LABS: BILIRUBIN,TOTAL 1.1 mg/dL (0.2-1.0); CREATININE 0.4 mg/dL (0.5-1.5); MAGNESIUM 1.9 mg/dL (1.80-2.40); POTASSIUM 3.3 mmol/L (3.5-5.1)
[2020-11-14] MEDS: POTASSIUM CHLORIDE 10% ELIXIR 20 MEQ/15 ML UDCUP NG SCH (08:42)
[2020-11-14] MEDS: PANTOPRAZOLE 40 MG/VIAL IVP SCH (08:42)
[2020-11-14] MEDS: METOCLOPRAMIDE 5 MG TABLET PO SCH ×2 (08:43→11:02)
[2020-11-14] MEDS: QUETIAPINE FUMARATE 25 MG TAB PO SCH (08:43)
[2020-11-14] MEDS: MIDODRINE HCL 5 MG TABLET PO SCH ×3 (08:43→21:22)
[2020-11-14] MEDS: SOLU-MEDROL 40MG VIAL IVP SCH ×2 (08:43→21:22)
[2020-11-14] MEDS: CLONAZEPAM 1MG TAB PO SCH ×2 (08:43→21:22)
[2020-11-14] MEDS: FOLIC ACID 1 MG TABLET PO SCH (08:43)
[2020-11-14] MEDS: VANCOMYCIN 1.5GM/NS 250ML IV SCH ×4 (08:44→13:19)
[2020-11-14] MEDS: ALBUMIN (HUMAN) 25% 50 ML IV SCH (08:45)
[2020-11-14] MEDS: FONDAPARINUX SODIUM 2.5 MG/0.5 ML SQ SCH (08:46)
[2020-11-14] MEDS ORDERED: PROPOFOL 1000 MG/100 ML IV PRN (10:00)
[2020-11-14] MEDS ORDERED: LACTULOSE 20 GM/30 ML UDCUP PO PRN (10:30)
[2020-11-14 10:38] LABS: BASOPHILS % (AUTO) 0.3 % (0.0-5.0); HEMATOCRIT 27.7 % (36-48); LYMPHOCYTES % (AUTO) 14.2 % (21.0-51.0); MEAN CORPUSCULAR HGB CONC 31.4 g/dL (32.0-36.0); MEAN CORPUSCULAR VOLUME 101.8 fL (79-99); MONOCYTES % (AUTO) 3.9 % (3.0-13.0); NEUTROPHILS % (AUTO) 77.9 % (40.0-77.0); NUCLEATED RED BLOOD CELLS 4.2 % (0.0-0.19); PLATELET COUNT (AUTO) 175 K/uL (130-400); RED BLOOD CELL COUNT(AUTO) 2.72 MIL/uL (4.00-5.50); RED CELL DISTRIBUTION WIDTH 23.1 % (11.0-15.5); WHITE BLOOD COUNT (AUTO) 8.7 K/uL (4.8-10.8)
[2020-11-14] MEDS: ACETAMINOPHEN 325 MG/10.15ML UDCUP PEG PRN ×2 (11:02→17:44)
[2020-11-14] MEDS ORDERED: PHENYLEPHRINE HCL 100 MG in 0.9% NACL 250ML 250 ML IV SCH (12:30)
[2020-11-14] MEDS: ASPIRIN 81MG CHEW TAB PEG SCH (14:41)
[2020-11-15] VITALS (33 sets, daily range): BP systolic 81–142; BP diastolic 41–79
[2020-11-15] MEDS: FUROSEMIDE 20MG VIAL IV SCH ×3 (00:19→16:39)
[2020-11-15 03:04] LABS: ABG HCO3 35.4 mmol/L (21.0-28.0); ABG OXYGEN SATURATION 89.6 % (95.0-99.0); ABG PCO2 41 mmHg (32-45)
[2020-11-15] MEDS: DEXMEDETOMIDINE 400MCG/NS100ML IV SCH ×2 (03:27→12:18)
[2020-11-15] MEDS: MORPHINE 15MG IR TAB PO SCH ×2 (04:09→15:03)
[2020-11-15] MEDS: DOCUSATE NA 100MG/10ML UDCUP PO SCH ×3 (05:08→21:43)
[2020-11-15 07:12] LABS: BASOPHILS % (AUTO) 0.1 % (0.0-5.0); HEMATOCRIT 27.5 % (36-48); LYMPHOCYTES % (AUTO) 11.9 % (21.0-51.0); MEAN CORPUSCULAR HEMOGLOBIN 32.1 pg (27.0-33.0); MEAN CORPUSCULAR HGB CONC 30.5 g/dL (32.0-36.0); MONOCYTES % (AUTO) 2.8 % (3.0-13.0); NEUTROPHILS % (AUTO) 80.8 % (40.0-77.0); NUCLEATED RED BLOOD CELLS 3.4 % (0.0-0.19); PLATELET COUNT (AUTO) 165 K/uL (130-400); RED BLOOD CELL COUNT(AUTO) 2.62 MIL/uL (4.00-5.50); RED CELL DISTRIBUTION WIDTH 23.4 % (11.0-15.5)
[2020-11-15 07:44] LABS: ALANINE AMINOTRANSFERASE 108 U/L (12-78); ALBUMIN 2.9 g/dL (3.5-5.0); ASPARTATE AMINOTRANSFERASE 41 U/L (10-37); CARBON DIOXIDE 40 mmol/L (21-32); CHLORIDE 102 mmol/L (101-111); CREATININE 0.4 mg/dL (0.5-1.5); GLOMERULAR FILTR. RATE CALC 175 mL/min (>60); GLUCOSE,RANDOM 150 mg/dL (70-105); POTASSIUM 3.7 mmol/L (3.5-5.1); SODIUM SERUM 144 mmol/L (136-145); THYROID STIMULATING HORMONE 0.84 uIU/mL (0.36-3.74); TOTAL PROTEIN, SERUM 5.5 g/dL (6.0-8.3); UREA NITROGEN, BLOOD 15 mg/dL (7-18)
[2020-11-15] MEDS: SOLU-MEDROL 40MG VIAL IVP SCH ×2 (09:25→21:43)
[2020-11-15] MEDS: PANTOPRAZOLE 40 MG/VIAL IVP SCH (09:25)
[2020-11-15] MEDS: MIDODRINE HCL 5 MG TABLET PO SCH ×3 (09:26→21:43)
[2020-11-15] MEDS: CLONAZEPAM 1MG TAB PO SCH ×2 (09:26→21:43)
[2020-11-15] MEDS: POTASSIUM CHLORIDE 10% ELIXIR 20 MEQ/15 ML UDCUP NG SCH (09:26)
[2020-11-15] MEDS: FOLIC ACID 1 MG TABLET PO SCH (09:26)
[2020-11-15] MEDS: ASPIRIN 81MG CHEW TAB PEG SCH (09:26)
[2020-11-15] MEDS: FONDAPARINUX SODIUM 2.5 MG/0.5 ML SQ SCH (09:27)
[2020-11-15] MEDS: VANCOMYCIN 1.5GM/NS 250ML IV SCH ×4 (11:27→22:12)
[2020-11-15] MEDS: METOCLOPRAMIDE 10 MG/2 ML VIAL IVP SCH (16:39)
[2020-11-16] VITALS (36 sets, daily range): BP systolic 80–139; BP diastolic 32–80
[2020-11-16] MEDS: FUROSEMIDE 20MG VIAL IV SCH ×3 (02:06→16:14)
[2020-11-16] MEDS: MORPHINE 15MG IR TAB PO SCH (02:25)
[2020-11-16 04:15] LABS: ABG HCO3 32.3 mmol/L (21.0-28.0); ABG OXYGEN SATURATION 90.4 % (95.0-99.0); ABG PCO2 39 mmHg (32-45)
[2020-11-16 05:17] LABS: BASOPHILS % (AUTO) 0.2 % (0.0-5.0); EOSINOPHILS % (AUTO) 0.1 % (0.0-8.0); HEMATOCRIT 28.9 % (36-48); LYMPHOCYTES % (AUTO) 11.5 % (21.0-51.0); MEAN CORPUSCULAR HEMOGLOBIN 32.9 pg (27.0-33.0); MEAN CORPUSCULAR HGB CONC 31.8 g/dL (32.0-36.0); MEAN CORPUSCULAR VOLUME 103.2 fL (79-99); MONOCYTES % (AUTO) 2.9 % (3.0-13.0); NEUTROPHILS % (AUTO) 82.4 % (40.0-77.0); NUCLEATED RED BLOOD CELLS 1.9 % (0.0-0.19); PLATELET COUNT (AUTO) 186 K/uL (130-400); RED CELL DISTRIBUTION WIDTH 22.8 % (11.0-15.5); WHITE BLOOD COUNT (AUTO) 10.5 K/uL (4.8-10.8)
[2020-11-16 05:38] LABS: BILIRUBIN,TOTAL 1.2 mg/dL (0.2-1.0); CREATININE 0.5 mg/dL (0.5-1.5); MAGNESIUM 1.9 mg/dL (1.80-2.40); PHOSPHORUS 3.8 mg/dL (2.5-4.9); POTASSIUM 3.7 mmol/L (3.5-5.1)
[2020-11-16] MEDS: INSULIN HUMULIN R 100 UNIT/ML 3ML SQ SCH ×4 (06:00→17:44)
[2020-11-16] MEDS: DOCUSATE NA 100MG/10ML UDCUP PO SCH ×3 (06:12→21:39)
[2020-11-16] MEDS: DEXMEDETOMIDINE 400MCG/NS100ML IV SCH ×2 (06:12→17:17)
[2020-11-16] MEDS: POTASSIUM CHLORIDE 10% ELIXIR 20 MEQ/15 ML UDCUP NG SCH (08:06)
[2020-11-16] MEDS: PANTOPRAZOLE 40 MG/VIAL IVP SCH (08:06)
[2020-11-16] MEDS: CLONAZEPAM 1MG TAB PO SCH ×2 (08:07→21:39)
[2020-11-16] MEDS: FOLIC ACID 1 MG TABLET PO SCH (08:07)
[2020-11-16] MEDS: ASPIRIN 81MG CHEW TAB PEG SCH (08:07)
[2020-11-16] MEDS: MIDODRINE HCL 5 MG TABLET PO SCH ×3 (08:07→21:39)
[2020-11-16] MEDS: SOLU-MEDROL 40MG VIAL IVP SCH ×2 (08:07→21:39)
[2020-11-16] MEDS: METOCLOPRAMIDE 10 MG/2 ML VIAL IVP SCH ×3 (08:07→16:13)
[2020-11-16] MEDS: VANCOMYCIN 1.5GM/NS 250ML IV SCH ×4 (08:08→21:00)
[2020-11-16] MEDS: FONDAPARINUX SODIUM 2.5 MG/0.5 ML SQ SCH (08:49)
[2020-11-16] MEDS ORDERED: NOREPINEPHRIN 4MG/NS 250ML 250 ML IV SCH (10:00)
[2020-11-16] MEDS: ALBUMIN (HUMAN) 25% 50 ML IV SCH ×2 (15:24→21:41)
[2020-11-16] MEDS: ACETAMINOPHEN 325 MG/10.15ML UDCUP PEG PRN (16:14)
[2020-11-16] MEDS: PHENYLEPHRINE HCL 100 MG in 0.9% NACL 250ML 250 ML IV SCH (17:29)
[2020-11-17] VITALS (39 sets, daily range): BP systolic 82–147; BP diastolic 25–96
[2020-11-17] MEDS ORDERED: NOREPINEPHRIN 4MG/NS 250ML 250 ML IV ONE (00:55)
[2020-11-17] MEDS: FUROSEMIDE 20MG VIAL IV SCH ×3 (01:27→16:38)
[2020-11-17] MEDS: DEXMEDETOMIDINE 400MCG/NS100ML IV SCH ×7 (02:53→21:53)
[2020-11-17] MEDS: PHENYLEPHRINE HCL 100 MG in 0.9% NACL 250ML 250 ML IV SCH ×3 (02:57→15:31)
[2020-11-17] MEDS: ACETAMINOPHEN 325 MG/10.15ML UDCUP PEG PRN ×4 (03:39→20:23)
[2020-11-17 04:21] LABS: ABG HCO3 27.2 mmol/L (21.0-28.0); ABG OXYGEN SATURATION 92.5 % (95.0-99.0); ABG PCO2 36 mmHg (32-45)
[2020-11-17] MEDS: ALBUMIN (HUMAN) 25% 50 ML IV SCH (05:11)
[2020-11-17] MEDS: DOCUSATE NA 100MG/10ML UDCUP PO SCH ×3 (05:34→20:23)
[2020-11-17] MEDS: INSULIN HUMULIN R 100 UNIT/ML 3ML SQ SCH ×4 (06:00→18:00)
[2020-11-17 06:30] LABS: BASOPHILS % (AUTO) 0.4 % (0.0-5.0); EOSINOPHILS % (AUTO) 0.2 % (0.0-8.0); HEMATOCRIT 32.5 % (36-48); LYMPHOCYTES % (AUTO) 21.5 % (21.0-51.0); MEAN CORPUSCULAR HEMOGLOBIN 31.8 pg (27.0-33.0); MEAN CORPUSCULAR HGB CONC 30.5 g/dL (32.0-36.0); MEAN CORPUSCULAR VOLUME 104.5 fL (79-99); MONOCYTES % (AUTO) 2.9 % (3.0-13.0); NUCLEATED RED BLOOD CELLS 5.7 % (0.0-0.19); PLATELET COUNT (AUTO) 175 K/uL (130-400); RED BLOOD CELL COUNT(AUTO) 3.11 MIL/uL (4.00-5.50); WHITE BLOOD COUNT (AUTO) 13.6 K/uL (4.8-10.8)
[2020-11-17 06:52] LABS: ALBUMIN 3.5 g/dL (3.5-5.0); BILIRUBIN,TOTAL 1.3 mg/dL (0.2-1.0); CREATININE 0.8 mg/dL (0.5-1.5); POTASSIUM 3.4 mmol/L (3.5-5.1); TOTAL PROTEIN, SERUM 6.5 g/dL (6.0-8.3)
[2020-11-17] MEDS: VANCOMYCIN 1.5GM/NS 250ML IV SCH ×2 (06:58)
[2020-11-17 07:04] LABS: CRP QUANTITATIVE 162.4 mg/L (0.00-9.0)
[2020-11-17 07:26] LABS: BAND NEUTROPHILS % (MANUAL) 4 % (0-2); LYMPHOCYTES % (MANUAL) 20 % (22-44); MONOCYTES % (MANUAL) 4 % (2-9); SEGMENTED NEUTROPHILS % 72 % (40-70)
[2020-11-17 07:27] LABS: MAN.DIFF COMMENT-IMPRESSION MANUAL DIFFERENTIAL; PLATELET MORPHOLOGY COMMENT ADEQUATE
[2020-11-17] MEDS: POTASSIUM CHLORIDE 20MEQ/100ML 100 ML IV PRN ×2 (07:28→13:52)
[2020-11-17] MEDS: METOCLOPRAMIDE 10 MG/2 ML VIAL IVP SCH ×3 (07:29→16:38)
[2020-11-17] MEDS: PANTOPRAZOLE 40 MG/VIAL IVP SCH (07:29)
[2020-11-17] MEDS: SOLU-MEDROL 40MG VIAL IVP SCH ×2 (07:29→20:22)
[2020-11-17] MEDS: ASPIRIN 81MG CHEW TAB PEG SCH (07:30)
[2020-11-17] MEDS: CLONAZEPAM 1MG TAB PO SCH ×2 (07:30→20:22)
[2020-11-17] MEDS: POTASSIUM CHLORIDE 10% ELIXIR 20 MEQ/15 ML UDCUP NG SCH (07:30)
[2020-11-17] MEDS: FONDAPARINUX SODIUM 2.5 MG/0.5 ML SQ SCH (07:31)
[2020-11-17] MEDS: MIDODRINE HCL 5 MG TABLET PO SCH ×3 (07:33→20:22)
[2020-11-17] MEDS ORDERED: 0.9%NACL 1000ML 525 ML IV SCH (08:30)
[2020-11-17] MEDS ORDERED: FLUCONAZOLE 200 MG/NS 100 ML 100 ML IV SCH (09:00)
[2020-11-17] MEDS: MEROPENEM 1 GM VIAL IVP SCH ×2 (13:53→21:48)
[2020-11-17] MEDS ORDERED: PHARMACY COMMUNICATION MISC SCH (14:00)
[2020-11-17] MEDS: MICAFUNGIN 100MG+NS 100ML 100 ML IV SCH (14:49)
[2020-11-18] VITALS (36 sets, daily range): BP systolic 93–166; BP diastolic 54–94
[2020-11-18] MEDS: FUROSEMIDE 20MG VIAL IV SCH ×3 (00:42→16:31)
[2020-11-18] MEDS: DEXMEDETOMIDINE 400MCG/NS100ML IV SCH ×7 (00:42→22:57)
[2020-11-18 05:20] LABS: CREATININE 0.9 mg/dL (0.5-1.5); MAGNESIUM 1.9 mg/dL (1.80-2.40); POTASSIUM 3.7 mmol/L (3.5-5.1)
[2020-11-18 05:38] LABS: BASOPHILS % (AUTO) 0.7 % (0.0-5.0); EOSINOPHILS % (AUTO) 0.4 % (0.0-8.0); LYMPHOCYTES % (AUTO) 17.4 % (21.0-51.0); MEAN CORPUSCULAR HEMOGLOBIN 32.3 pg (27.0-33.0); MEAN CORPUSCULAR HGB CONC 30.9 g/dL (32.0-36.0); MEAN CORPUSCULAR VOLUME 104.4 fL (79-99); MONOCYTES % (AUTO) 2.6 % (3.0-13.0); NUCLEATED RED BLOOD CELLS 0.9 % (0.0-0.19); PLATELET COUNT (AUTO) 170 K/uL (130-400); RED BLOOD CELL COUNT(AUTO) 3.16 MIL/uL (4.00-5.50); WHITE BLOOD COUNT (AUTO) 10.3 K/uL (4.8-10.8)
[2020-11-18] MEDS: MEROPENEM 1 GM VIAL IVP SCH ×3 (05:49→21:39)
[2020-11-18] MEDS: DOCUSATE NA 100MG/10ML UDCUP PO SCH ×3 (05:49→21:39)
[2020-11-18] MEDS: INSULIN HUMULIN R 100 UNIT/ML 3ML SQ SCH ×5 (06:19→23:26)
[2020-11-18] MEDS: PHENYLEPHRINE HCL 100 MG in 0.9% NACL 250ML 250 ML IV SCH ×2 (07:44→16:53)
[2020-11-18] MEDS ORDERED: PROPOFOL 1000 MG/100 ML 100 ML IV ONE (07:45)
[2020-11-18] MEDS ORDERED: PROPOFOL 1000 MG/100 ML IV PRN (08:00)
[2020-11-18] MEDS ORDERED: VANCOMYCIN 1.5GM/NS 250ML IV SCH ×2 (08:00)
[2020-11-18] MEDS: POTASSIUM CHLORIDE 10% ELIXIR 20 MEQ/15 ML UDCUP NG SCH (08:25)
[2020-11-18] MEDS: PANTOPRAZOLE 40 MG/VIAL IVP SCH (08:25)
[2020-11-18] MEDS: POTASSIUM CHLORIDE 20MEQ/100ML 100 ML IV PRN (08:26)
[2020-11-18] MEDS: METOCLOPRAMIDE 10 MG/2 ML VIAL IVP SCH ×3 (08:26→16:32)
[2020-11-18] MEDS: SOLU-MEDROL 40MG VIAL IVP SCH ×2 (08:26→21:39)
[2020-11-18] MEDS: CLONAZEPAM 1MG TAB PO SCH ×2 (08:27→21:39)
[2020-11-18] MEDS: ASPIRIN 81MG CHEW TAB PEG SCH (08:27)
[2020-11-18] MEDS: MIDODRINE HCL 5 MG TABLET PO SCH ×3 (08:27→21:39)
[2020-11-18] MEDS: FONDAPARINUX SODIUM 2.5 MG/0.5 ML SQ SCH (08:27)
[2020-11-18] MEDS: PROPOFOL 1000 MG/100 ML 100 ML IV PRN ×3 (09:23→16:32)
[2020-11-18] MEDS: MIDAZOLAM 100MG-0.9% NS 100ML 50 ML IV PRN ×2 (10:25→15:06)
[2020-11-18] MEDS: MAGNESIUM 2GM PREMIX 50ML 50 ML IV SCH (11:18)
[2020-11-18] MEDS: VANCOMYCIN KIT 1 GM/250 ML IV.KIT IV SCH ×2 (13:31→21:40)
[2020-11-18] MEDS: 0.9% NACL 250ML 250 ML IV SCH ×2 (13:31→21:41)
[2020-11-18] MEDS: MICAFUNGIN 100MG+NS 100ML 100 ML IV SCH (14:27)
[2020-11-18] MEDS ORDERED: PHARMACY COMMUNICATION MISC SCH (14:30)
[2020-11-18] MEDS: VECURONIUM 10MG/10ML IV PRN ×2 (14:52→18:26)
[2020-11-19] VITALS (26 sets, daily range): BP systolic 101–168; BP diastolic 52–94
[2020-11-19] MEDS: PROPOFOL 1000 MG/100 ML 100 ML IV PRN ×3 (00:44→19:38)
[2020-11-19] MEDS: DEXMEDETOMIDINE 400MCG/NS100ML IV SCH ×7 (00:45→22:26)
[2020-11-19] MEDS: FUROSEMIDE 20MG VIAL IV SCH ×3 (00:45→17:00)
[2020-11-19] MEDS: PHENYLEPHRINE HCL 100 MG in 0.9% NACL 250ML 250 ML IV SCH ×2 (01:02→21:05)
[2020-11-19 03:57] LABS: EOSINOPHILS % (AUTO) 0.2 % (0.0-8.0); HEMATOCRIT 33.8 % (36-48); LYMPHOCYTES % (AUTO) 13.5 % (21.0-51.0); MEAN CORPUSCULAR HEMOGLOBIN 33.2 pg (27.0-33.0); MEAN CORPUSCULAR HGB CONC 31.7 g/dL (32.0-36.0); MONOCYTES % (AUTO) 3.4 % (3.0-13.0); NUCLEATED RED BLOOD CELLS 3.4 % (0.0-0.19); PLATELET COUNT (AUTO) 130 K/uL (130-400); RED BLOOD CELL COUNT(AUTO) 3.22 MIL/uL (4.00-5.50); RED CELL DISTRIBUTION WIDTH 21.5 % (11.0-15.5); WHITE BLOOD COUNT (AUTO) 8.7 K/uL (4.8-10.8)
[2020-11-19 03:59] LABS: ALBUMIN 2.6 g/dL (3.5-5.0); BILIRUBIN,TOTAL 0.9 mg/dL (0.2-1.0); CREATININE 0.7 mg/dL (0.5-1.5); MAGNESIUM 2.1 mg/dL (1.80-2.40); POTASSIUM 4.4 mmol/L (3.5-5.1)
[2020-11-19 04:01] LABS: ABG HCO3 24.7 mmol/L (21.0-28.0); ABG OXYGEN SATURATION 92.6 % (95.0-99.0); ABG PCO2 58 mmHg (32-45)
[2020-11-19 04:17] LABS: CRP QUANTITATIVE 291.6 mg/L (0.00-9.0)
[2020-11-19] MEDS: VECURONIUM 10MG/10ML IV PRN (04:43)
[2020-11-19] MEDS: DOCUSATE NA 100MG/10ML UDCUP PO SCH ×3 (05:31→20:43)
[2020-11-19] MEDS: MEROPENEM 1 GM VIAL IVP SCH ×3 (05:34→20:50)
[2020-11-19] MEDS: 0.9% NACL 250ML 250 ML IV SCH ×2 (05:35→16:39)
[2020-11-19] MEDS: VANCOMYCIN KIT 1 GM/250 ML IV.KIT IV SCH ×3 (05:35→22:00)
[2020-11-19] MEDS: INSULIN HUMULIN R 100 UNIT/ML 3ML SQ SCH ×3 (06:00→18:00)
[2020-11-19] MEDS: METOCLOPRAMIDE 10 MG/2 ML VIAL IVP SCH ×3 (07:30→17:00)
[2020-11-19] MEDS: SOLU-MEDROL 40MG VIAL IVP SCH ×2 (09:56→20:50)
[2020-11-19] MEDS: POTASSIUM CHLORIDE 10% ELIXIR 20 MEQ/15 ML UDCUP NG SCH (09:58)
[2020-11-19] MEDS: ASPIRIN 81MG CHEW TAB PEG SCH (09:59)
[2020-11-19] MEDS: PANTOPRAZOLE 40 MG/VIAL IVP SCH (09:59)
[2020-11-19] MEDS: MIDODRINE HCL 5 MG TABLET PO SCH ×3 (09:59→20:50)
[2020-11-19] MEDS: CLONAZEPAM 1MG TAB PO SCH ×2 (09:59→20:50)
[2020-11-19] MEDS: FONDAPARINUX SODIUM 2.5 MG/0.5 ML SQ SCH (10:30)
[2020-11-19] MEDS: MICAFUNGIN 100MG+NS 100ML 100 ML IV SCH (15:00)
[2020-11-19] MEDS: MIDAZOLAM 100MG-0.9% NS 100ML 50 ML IV PRN (15:17)
[2020-11-20] VITALS (29 sets, daily range): BP systolic 84–153; BP diastolic 46–91
[2020-11-20] MEDS: VANCOMYCIN KIT 1 GM/250 ML IV.KIT IV SCH (00:29)
[2020-11-20] MEDS: PROPOFOL 1000 MG/100 ML 100 ML IV PRN ×4 (00:34→23:09)
[2020-11-20] MEDS: FUROSEMIDE 20MG VIAL IV SCH ×3 (01:28→17:13)
[2020-11-20] MEDS: DEXMEDETOMIDINE 400MCG/NS100ML IV SCH ×3 (01:58→23:07)
[2020-11-20 03:14] LABS: ABG BASE EXCESS 5.3 mmol/L (-2.0-3.0); ABG HCO3 29.1 mmol/L (21.0-28.0); ABG PCO2 39 mmHg (32-45)
[2020-11-20] MEDS: DOCUSATE NA 100MG/10ML UDCUP PO SCH ×3 (04:05→21:38)
[2020-11-20] MEDS: MEROPENEM 1 GM VIAL IVP SCH ×3 (04:56→21:45)
[2020-11-20] MEDS: INSULIN HUMULIN R 100 UNIT/ML 3ML SQ SCH ×4 (05:21→18:00)
[2020-11-20] MEDS: VECURONIUM 10MG/10ML IV PRN (05:21)
[2020-11-20 05:57] LABS: ALBUMIN 2.3 g/dL (3.5-5.0); BILIRUBIN,TOTAL 0.8 mg/dL (0.2-1.0); CREATININE 0.8 mg/dL (0.5-1.5); CRP QUANTITATIVE 121.7 mg/L (0.00-9.0); POTASSIUM 3.6 mmol/L (3.5-5.1); TOTAL PROTEIN, SERUM 5.4 g/dL (6.0-8.3)
[2020-11-20 06:39] LABS: BASOPHILS % (AUTO) 0.5 % (0.0-5.0); EOSINOPHILS % (AUTO) 0.3 % (0.0-8.0); LYMPHOCYTES % (AUTO) 9.7 % (21.0-51.0); MEAN CORPUSCULAR HEMOGLOBIN 34.7 pg (27.0-33.0); MEAN CORPUSCULAR HGB CONC 31.9 g/dL (32.0-36.0); MEAN CORPUSCULAR VOLUME 108.9 fL (79-99); MONOCYTES % (AUTO) 3.6 % (3.0-13.0); NEUTROPHILS % (AUTO) 84.7 % (40.0-77.0); NUCLEATED RED BLOOD CELLS 1.7 % (0.0-0.19); PLATELET COUNT (AUTO) 148 K/uL (130-400); RED BLOOD CELL COUNT(AUTO) 2.48 MIL/uL (4.00-5.50); RED CELL DISTRIBUTION WIDTH 22.5 % (11.0-15.5); WHITE BLOOD COUNT (AUTO) 14.6 K/uL (4.8-10.8)
[2020-11-20] MEDS: ASPIRIN 81MG CHEW TAB PEG SCH (09:00)
[2020-11-20] MEDS: SOLU-MEDROL 40MG VIAL IVP SCH ×2 (09:00→17:17)
[2020-11-20] MEDS: METOCLOPRAMIDE 10 MG/2 ML VIAL IVP SCH ×3 (09:24→17:12)
[2020-11-20] MEDS: PANTOPRAZOLE 40 MG/VIAL IVP SCH (10:30)
[2020-11-20] MEDS: CLONAZEPAM 1MG TAB PO SCH ×2 (10:30→21:45)
[2020-11-20] MEDS: POTASSIUM CHLORIDE 10% ELIXIR 20 MEQ/15 ML UDCUP NG SCH (10:30)
[2020-11-20] MEDS: FONDAPARINUX SODIUM 2.5 MG/0.5 ML SQ SCH (10:42)
[2020-11-20] MEDS: MIDODRINE HCL 5 MG TABLET PO SCH ×3 (10:47→21:45)
[2020-11-20] MEDS: MIDAZOLAM 100MG-0.9% NS 100ML 50 ML IV PRN (11:39)
[2020-11-20] MEDS: MICAFUNGIN 100MG+NS 100ML 100 ML IV SCH (17:12)
[2020-11-21] VITALS (20 sets, daily range): BP systolic 112–160; BP diastolic 53–102
[2020-11-21] MEDS: DOCUSATE NA 100MG/10ML UDCUP PO SCH ×3 (01:50→19:40)
[2020-11-21] MEDS: FUROSEMIDE 20MG VIAL IV SCH ×3 (01:54→18:02)
[2020-11-21] MEDS: MIDAZOLAM 100MG-0.9% NS 100ML 50 ML IV PRN (04:21)
[2020-11-21] MEDS: PROPOFOL 1000 MG/100 ML 100 ML IV PRN ×3 (04:23→21:33)
[2020-11-21] MEDS: PHENYLEPHRINE HCL 100 MG in 0.9% NACL 250ML 250 ML IV SCH ×2 (04:25→21:22)
[2020-11-21 04:28] LABS: BASOPHILS % (AUTO) 0.4 % (0.0-5.0); EOSINOPHILS % (AUTO) 0.3 % (0.0-8.0); HEMATOCRIT 25.8 % (36-48); MEAN CORPUSCULAR HEMOGLOBIN 35.8 pg (27.0-33.0); MEAN CORPUSCULAR HGB CONC 32.2 g/dL (32.0-36.0); MEAN CORPUSCULAR VOLUME 111.2 fL (79-99); MONOCYTES % (AUTO) 2.3 % (3.0-13.0); NEUTROPHILS % (AUTO) 87.9 % (40.0-77.0); NUCLEATED RED BLOOD CELLS 1.6 % (0.0-0.19); PLATELET COUNT (AUTO) 202 K/uL (130-400); RED BLOOD CELL COUNT(AUTO) 2.32 MIL/uL (4.00-5.50); WHITE BLOOD COUNT (AUTO) 16.4 K/uL (4.8-10.8)
[2020-11-21 04:59] LABS: ALBUMIN 2.6 g/dL (3.5-5.0); BILIRUBIN,TOTAL 0.8 mg/dL (0.2-1.0); CREATININE 0.8 mg/dL (0.5-1.5); CRP QUANTITATIVE 73.2 mg/L (0.00-9.0); TOTAL PROTEIN, SERUM 5.8 g/dL (6.0-8.3)
[2020-11-21] MEDS: INSULIN HUMULIN R 100 UNIT/ML 3ML SQ SCH ×5 (06:00→23:57)
[2020-11-21] MEDS: MEROPENEM 1 GM VIAL IVP SCH ×3 (06:26→21:24)
[2020-11-21] MEDS ORDERED: VANCOMYCIN KIT 1 GM/250 ML IV.KIT IV SCH (09:00)
[2020-11-21] MEDS: MIDODRINE HCL 5 MG TABLET PO SCH ×3 (09:08→19:53)
[2020-11-21] MEDS: METOCLOPRAMIDE 10 MG/2 ML VIAL IVP SCH ×3 (09:08→18:02)
[2020-11-21] MEDS: PANTOPRAZOLE 40 MG/VIAL IVP SCH (09:09)
[2020-11-21] MEDS: SOLU-MEDROL 40MG VIAL IVP SCH ×2 (09:09→19:53)
[2020-11-21] MEDS: FONDAPARINUX SODIUM 2.5 MG/0.5 ML SQ SCH (09:12)
[2020-11-21] MEDS: ASPIRIN 81MG CHEW TAB PEG SCH (09:13)
[2020-11-21] MEDS: CLONAZEPAM 1MG TAB PO SCH ×2 (09:17→19:53)
[2020-11-21] MEDS: POTASSIUM CHLORIDE 10% ELIXIR 20 MEQ/15 ML UDCUP NG SCH (09:17)
[2020-11-21] MEDS ORDERED: FENTANYL CITRATE PF 0.05 MG/ML 1,000 MCG in 0.9%NACL 100ML 100 ML IVPB SCH (10:30)
[2020-11-21 10:40] LABS: ABG HCO3 31.8 mmol/L (21.0-28.0); ABG PCO2 53 mmHg (32-45)
[2020-11-21] MEDS: 0.9% NACL 250ML 250 ML IV SCH (11:51)
[2020-11-21] MEDS: MICAFUNGIN 100MG+NS 100ML 100 ML IV SCH (16:34)
[2020-11-21] MEDS: DEXMEDETOMIDINE 400MCG/NS100ML IV SCH (19:34)
[2020-11-22] VITALS (29 sets, daily range): BP systolic 80–157; BP diastolic 43–92
[2020-11-22] MEDS: FUROSEMIDE 20MG VIAL IV SCH ×3 (00:10→20:30)
[2020-11-22] MEDS: MIDAZOLAM 100MG-0.9% NS 100ML 50 ML IV PRN (00:28)
[2020-11-22 04:08] LABS: ABG BASE EXCESS 9.1 mmol/L (-2.0-3.0); ABG HCO3 35.4 mmol/L (21.0-28.0); ABG OXYGEN SATURATION 92.7 % (95.0-99.0); ABG PCO2 58 mmHg (32-45)
[2020-11-22] MEDS: DOCUSATE NA 100MG/10ML UDCUP PO SCH ×3 (04:33→20:09)
[2020-11-22] MEDS: MEROPENEM 1 GM VIAL IVP SCH ×3 (04:33→20:29)
[2020-11-22 04:41] LABS: BASOPHILS % (AUTO) 0.5 % (0.0-5.0); EOSINOPHILS % (AUTO) 0.5 % (0.0-8.0); HEMATOCRIT 24.2 % (36-48); LYMPHOCYTES % (AUTO) 4.6 % (21.0-51.0); MEAN CORPUSCULAR HEMOGLOBIN 38.8 pg (27.0-33.0); MONOCYTES % (AUTO) 3.3 % (3.0-13.0); NEUTROPHILS % (AUTO) 86.9 % (40.0-77.0); NUCLEATED RED BLOOD CELLS 3.7 % (0.0-0.19); PLATELET COUNT (AUTO) 215 K/uL (130-400); RED BLOOD CELL COUNT(AUTO) 2.24 MIL/uL (4.00-5.50); WHITE BLOOD COUNT (AUTO) 13.1 K/uL (4.8-10.8)
[2020-11-22 04:54] LABS: ALBUMIN 2.7 g/dL (3.5-5.0); BILIRUBIN,TOTAL 1.2 mg/dL (0.2-1.0); CREATININE 0.6 mg/dL (0.5-1.5); MAGNESIUM 1.9 mg/dL (1.80-2.40); POTASSIUM 3.2 mmol/L (3.5-5.1); TOTAL PROTEIN, SERUM 5.9 g/dL (6.0-8.3)
[2020-11-22] MEDS: INSULIN HUMULIN R 100 UNIT/ML 3ML SQ SCH ×3 (06:00→17:24)
[2020-11-22] MEDS: DEXMEDETOMIDINE 400MCG/NS100ML IV SCH ×2 (06:46→16:34)
[2020-11-22] MEDS: POTASSIUM CHLORIDE 10% ELIXIR 20 MEQ/15 ML UDCUP NG SCH (07:05)
[2020-11-22] MEDS: METOCLOPRAMIDE 10 MG/2 ML VIAL IVP SCH ×3 (07:30→16:34)
[2020-11-22] MEDS: 0.9% NACL 250ML 250 ML IV SCH (09:00)
[2020-11-22] MEDS: PANTOPRAZOLE 40 MG/VIAL IVP SCH (09:35)
[2020-11-22] MEDS: ASPIRIN 81MG CHEW TAB PEG SCH (09:36)
[2020-11-22] MEDS: CLONAZEPAM 1MG TAB PO SCH ×2 (09:36→20:30)
[2020-11-22] MEDS: MIDODRINE HCL 5 MG TABLET PO SCH ×3 (09:36→20:30)
[2020-11-22] MEDS: SOLU-MEDROL 40MG VIAL IVP SCH ×2 (09:36→20:30)
[2020-11-22] MEDS: FONDAPARINUX SODIUM 2.5 MG/0.5 ML SQ SCH (09:42)
[2020-11-22] MEDS: POTASSIUM CHLORIDE 20MEQ/100ML 100 ML IV PRN ×2 (12:50→16:32)
[2020-11-22] MEDS: VANCOMYCIN 750MG VIAL ONE ×2 (13:07→13:11)
[2020-11-22 16:12] LABS: ABG BASE EXCESS 10.8 mmol/L (-2.0-3.0); ABG HCO3 35.2 mmol/L (21.0-28.0); ABG OXYGEN SATURATION 92.4 % (95.0-99.0); ABG PCO2 47 mmHg (32-45)
[2020-11-22] MEDS: MAGNESIUM 2GM PREMIX 50ML 50 ML IV SCH (16:33)
[2020-11-22] MEDS: MICAFUNGIN 100MG+NS 100ML 100 ML IV SCH (16:33)
[2020-11-22] MEDS: PROPOFOL 1000 MG/100 ML 100 ML IV PRN ×2 (16:35→21:30)
[2020-11-22] MEDS ORDERED: VECURONIUM 10MG/10ML IV ONE (16:47)
[2020-11-22] MEDS ORDERED: PHARMACY COMMUNICATION MISC SCH (17:00)
[2020-11-22] MEDS: VECURONIUM 10MG/10ML IV PRN (17:23)
[2020-11-23] VITALS (26 sets, daily range): BP systolic 79–141; BP diastolic 41–91
[2020-11-23] MEDS: DEXMEDETOMIDINE 400MCG/NS100ML IV SCH ×3 (01:27→18:02)
[2020-11-23] MEDS: MIDAZOLAM 100MG-0.9% NS 100ML 50 ML IV PRN (01:30)
[2020-11-23] MEDS: PROPOFOL 1000 MG/100 ML 100 ML IV PRN ×2 (04:37→12:45)
[2020-11-23 04:41] LABS: ABG BASE EXCESS 10.6 mmol/L (-2.0-3.0); ABG OXYGEN SATURATION 89.3 % (95.0-99.0); ABG PCO2 54 mmHg (32-45)
[2020-11-23] MEDS: DOCUSATE NA 100MG/10ML UDCUP PO SCH ×3 (04:59→22:19)
[2020-11-23] MEDS: MEROPENEM 1 GM VIAL IVP SCH ×3 (04:59→22:18)
[2020-11-23] MEDS: VECURONIUM 10MG/10ML IV PRN (05:14)
[2020-11-23 05:18] LABS: BASOPHILS % (AUTO) 0.6 % (0.0-5.0); EOSINOPHILS % (AUTO) 0.1 % (0.0-8.0); HEMATOCRIT 23.9 % (36-48); LYMPHOCYTES % (AUTO) 6.5 % (21.0-51.0); MEAN CORPUSCULAR HGB CONC 34.3 g/dL (32.0-36.0); MEAN CORPUSCULAR VOLUME 110.6 fL (79-99); MONOCYTES % (AUTO) 2.1 % (3.0-13.0); NEUTROPHILS % (AUTO) 85.2 % (40.0-77.0); NUCLEATED RED BLOOD CELLS 5.6 % (0.0-0.19); PLATELET COUNT (AUTO) 231 K/uL (130-400); RED BLOOD CELL COUNT(AUTO) 2.16 MIL/uL (4.00-5.50); RED CELL DISTRIBUTION WIDTH 23.7 % (11.0-15.5); WHITE BLOOD COUNT (AUTO) 14.1 K/uL (4.8-10.8)
[2020-11-23 05:38] LABS: ALBUMIN 2.5 g/dL (3.5-5.0); BILIRUBIN,TOTAL 1.4 mg/dL (0.2-1.0); CREATININE 0.7 mg/dL (0.5-1.5); CRP QUANTITATIVE 23.7 mg/L (0.00-9.0); MAGNESIUM 2.4 mg/dL (1.80-2.40); POTASSIUM 4.5 mmol/L (3.5-5.1); TOTAL PROTEIN, SERUM 5.4 g/dL (6.0-8.3)
[2020-11-23 05:48] LABS: BAND NEUTROPHILS % (MANUAL) 9 % (0-2); LYMPHOCYTES % (MANUAL) 3 % (22-44); MAN.DIFF COMMENT-IMPRESSION MANUAL DIFFERENTIAL; MONOCYTES % (MANUAL) 2 % (2-9); PLATELET MORPHOLOGY COMMENT ADEQUATE; SEGMENTED NEUTROPHILS % 86 % (40-70)
[2020-11-23] MEDS: INSULIN HUMULIN R 100 UNIT/ML 3ML SQ SCH ×5 (06:18→23:40)
[2020-11-23] MEDS: PHENYLEPHRINE HCL 100 MG in 0.9% NACL 250ML 250 ML IV SCH (06:21)
[2020-11-23] MEDS: CLONAZEPAM 1MG TAB PO SCH ×2 (09:00→22:18)
[2020-11-23] MEDS: 0.9% NACL 250ML 250 ML IV SCH ×2 (09:00→09:21)
[2020-11-23] MEDS: FUROSEMIDE 20MG VIAL IV SCH ×2 (09:20→22:18)
[2020-11-23] MEDS: METOCLOPRAMIDE 10 MG/2 ML VIAL IVP SCH ×3 (09:20→16:21)
[2020-11-23] MEDS: PANTOPRAZOLE 40 MG/VIAL IVP SCH (09:20)
[2020-11-23] MEDS: VANCOMYCIN 750MG VIAL IVPB SCH (09:21)
[2020-11-23] MEDS: POTASSIUM CHLORIDE 10% ELIXIR 20 MEQ/15 ML UDCUP NG SCH (09:22)
[2020-11-23] MEDS: ASPIRIN 81MG CHEW TAB PEG SCH (09:22)
[2020-11-23] MEDS: SOLU-MEDROL 40MG VIAL IVP SCH ×2 (09:23→22:19)
[2020-11-23] MEDS: MIDODRINE HCL 5 MG TABLET PO SCH ×3 (09:23→22:50)
[2020-11-23] MEDS: FONDAPARINUX SODIUM 2.5 MG/0.5 ML SQ SCH (09:23)
[2020-11-23] MEDS: ACETAMINOPHEN 325 MG/10.15ML UDCUP PEG PRN ×2 (10:30→16:21)
[2020-11-23] MEDS: MICAFUNGIN 100MG+NS 100ML 100 ML IV SCH (14:00)
[2020-11-23] MEDS: FENTANYL 2500MCG+NS 250ML 250 ML IV SCH (14:00)
[2020-11-24] VITALS (26 sets, daily range): BP systolic 83–161; BP diastolic 44–79
[2020-11-24] MEDS: PHENYLEPHRINE HCL 100 MG in 0.9% NACL 250ML 250 ML IV SCH (01:17)
[2020-11-24] MEDS: DEXMEDETOMIDINE 400MCG/NS100ML IV SCH ×3 (01:53→16:44)
[2020-11-24 03:20] LABS: ABG BASE EXCESS 8.7 mmol/L (-2.0-3.0); ABG HCO3 32.7 mmol/L (21.0-28.0); ABG OXYGEN SATURATION 91.2 % (95.0-99.0); ABG PCO2 43 mmHg (32-45)
[2020-11-24] MEDS: INSULIN HUMULIN R 100 UNIT/ML 3ML SQ SCH ×3 (05:25→18:03)
[2020-11-24] MEDS: MEROPENEM 1 GM VIAL IVP SCH ×3 (05:44→21:59)
[2020-11-24] MEDS: DOCUSATE NA 100MG/10ML UDCUP PO SCH ×3 (05:50→21:59)
[2020-11-24 06:20] LABS: BASOPHILS % (AUTO) 0.4 % (0.0-5.0); EOSINOPHILS % (AUTO) 0.1 % (0.0-8.0); LYMPHOCYTES % (AUTO) 8.7 % (21.0-51.0); MEAN CORPUSCULAR HEMOGLOBIN 37.1 pg (27.0-33.0); MEAN CORPUSCULAR HGB CONC 33.3 g/dL (32.0-36.0); MEAN CORPUSCULAR VOLUME 111.3 fL (79-99); NEUTROPHILS % (AUTO) 83.3 % (40.0-77.0); PLATELET COUNT (AUTO) 174 K/uL (130-400); RED BLOOD CELL COUNT(AUTO) 1.86 MIL/uL (4.00-5.50); WHITE BLOOD COUNT (AUTO) 13.9 K/uL (4.8-10.8)
[2020-11-24 06:30] LABS: HEMATOCRIT 20.7 % (36-48)
[2020-11-24 06:37] LABS: ALBUMIN 2.1 g/dL (3.5-5.0); BILIRUBIN,TOTAL 1.2 mg/dL (0.2-1.0); CREATININE 0.7 mg/dL (0.5-1.5); POTASSIUM 4.1 mmol/L (3.5-5.1); TOTAL PROTEIN, SERUM 4.7 g/dL (6.0-8.3)
[2020-11-24] MEDS: METOCLOPRAMIDE 10 MG/2 ML VIAL IVP SCH ×3 (07:30→16:44)
[2020-11-24] MEDS: CLONAZEPAM 1MG TAB PO SCH ×2 (09:00→21:59)
[2020-11-24] MEDS: 0.9% NACL 250ML 250 ML IV SCH ×2 (09:00→09:34)
[2020-11-24] MEDS: FONDAPARINUX SODIUM 2.5 MG/0.5 ML SQ SCH (09:33)
[2020-11-24] MEDS: VANCOMYCIN 750MG VIAL IVPB SCH (09:34)
[2020-11-24] MEDS: MIDODRINE HCL 5 MG TABLET PO SCH ×3 (09:34→21:58)
[2020-11-24] MEDS: PANTOPRAZOLE 40 MG/VIAL IVP SCH (09:34)
[2020-11-24] MEDS: FUROSEMIDE 20MG VIAL IV SCH ×2 (09:34→21:59)
[2020-11-24] MEDS: ASPIRIN 81MG CHEW TAB PEG SCH (09:35)
[2020-11-24] MEDS: POTASSIUM CHLORIDE 10% ELIXIR 20 MEQ/15 ML UDCUP NG SCH (09:35)
[2020-11-24] MEDS: SOLU-MEDROL 40MG VIAL IVP SCH ×2 (09:35→21:59)
[2020-11-24] MEDS: VECURONIUM 10MG/10ML IV PRN (13:58)
[2020-11-24] MEDS: MICAFUNGIN 100MG+NS 100ML 100 ML IV SCH (13:58)
[2020-11-24] MEDS: FENTANYL 2500MCG+NS 250ML 250 ML IV SCH (16:45)
[2020-11-24 16:47] LABS: HEMATOCRIT 21.6 % (36-48)
[2020-11-25] VITALS (23 sets, daily range): BP systolic 79–149; BP diastolic 44–76
[2020-11-25] MEDS: INSULIN HUMULIN R 100 UNIT/ML 3ML SQ SCH ×4 (00:51→17:18)
[2020-11-25] MEDS: VECURONIUM 10MG/10ML IV PRN ×2 (00:51→20:54)
[2020-11-25] MEDS: DEXMEDETOMIDINE 400MCG/NS100ML IV SCH ×4 (01:33→20:54)
[2020-11-25] MEDS: DOCUSATE NA 100MG/10ML UDCUP PO SCH ×3 (05:14→21:30)
[2020-11-25] MEDS: MIDAZOLAM 100MG-0.9% NS 100ML 50 ML IV PRN ×2 (05:14→17:20)
[2020-11-25] MEDS: MEROPENEM 1 GM VIAL IVP SCH ×3 (05:14→21:30)
[2020-11-25] MEDS: FENTANYL 2500MCG+NS 250ML 250 ML IV SCH ×2 (05:15→17:19)
[2020-11-25 06:04] LABS: BASOPHILS % (AUTO) 0.5 % (0.0-5.0); HEMATOCRIT 22.3 % (36-48); LYMPHOCYTES % (AUTO) 5.4 % (21.0-51.0); MEAN CORPUSCULAR HEMOGLOBIN 37.2 pg (27.0-33.0); MEAN CORPUSCULAR HGB CONC 33.2 g/dL (32.0-36.0); MEAN CORPUSCULAR VOLUME 112.1 fL (79-99); MONOCYTES % (AUTO) 0.9 % (3.0-13.0); NUCLEATED RED BLOOD CELLS 9.3 % (0.0-0.19); PLATELET COUNT (AUTO) 186 K/uL (130-400); RED BLOOD CELL COUNT(AUTO) 1.99 MIL/uL (4.00-5.50); WHITE BLOOD COUNT (AUTO) 18.3 K/uL (4.8-10.8)
[2020-11-25 06:29] LABS: ALBUMIN 2.1 g/dL (3.5-5.0); CREATININE 0.7 mg/dL (0.5-1.5); CRP QUANTITATIVE 21.2 mg/L (0.00-9.0); MAGNESIUM 2.1 mg/dL (1.80-2.40); POTASSIUM 4.4 mmol/L (3.5-5.1); TOTAL PROTEIN, SERUM 4.8 g/dL (6.0-8.3)
[2020-11-25 06:52] LABS: LYMPHOCYTES % (MANUAL) 7 % (22-44); MAN.DIFF COMMENT-IMPRESSION MANUAL DIFFERENTIAL; MONOCYTES % (MANUAL) 5 % (2-9); PLATELET MORPHOLOGY COMMENT ADEQUATE; SEGMENTED NEUTROPHILS % 88 % (40-70)
[2020-11-25 07:48] LABS: ABG HCO3 34.6 mmol/L (21.0-28.0); ABG OXYGEN SATURATION 94.2 % (95.0-99.0); ABG PCO2 54 mmHg (32-45)
[2020-11-25] MEDS: 0.9% NACL 250ML 250 ML IV SCH ×2 (07:54→08:05)
[2020-11-25] MEDS: FONDAPARINUX SODIUM 2.5 MG/0.5 ML SQ SCH (08:04)
[2020-11-25] MEDS: PANTOPRAZOLE 40 MG/VIAL IVP SCH (08:05)
[2020-11-25] MEDS: SOLU-MEDROL 40MG VIAL IVP SCH ×2 (08:05→20:55)
[2020-11-25] MEDS: FUROSEMIDE 20MG VIAL IV SCH ×2 (08:05→20:56)
[2020-11-25] MEDS: VANCOMYCIN 750MG VIAL IVPB SCH (08:05)
[2020-11-25] MEDS: POTASSIUM CHLORIDE 10% ELIXIR 20 MEQ/15 ML UDCUP NG SCH (08:06)
[2020-11-25] MEDS: METOCLOPRAMIDE 10 MG/2 ML VIAL IVP SCH ×3 (08:06→17:16)
[2020-11-25] MEDS: ASPIRIN 81MG CHEW TAB PEG SCH (08:06)
[2020-11-25] MEDS: CLONAZEPAM 1MG TAB PO SCH ×2 (08:08→20:55)
[2020-11-25] MEDS: MIDODRINE HCL 5 MG TABLET PO SCH ×3 (08:08→20:54)
[2020-11-25] MEDS: MICAFUNGIN 100MG+NS 100ML 100 ML IV SCH (15:00)
[2020-11-26] VITALS (20 sets, daily range): BP systolic 66–170; BP diastolic 35–160
[2020-11-26] MEDS: DEXMEDETOMIDINE 400MCG/NS100ML IV SCH ×5 (00:13→21:03)
[2020-11-26] MEDS: FENTANYL 2500MCG+NS 250ML 250 ML IV SCH ×2 (00:14→21:41)
[2020-11-26] MEDS: PHENYLEPHRINE HCL 100 MG in 0.9% NACL 250ML 250 ML IV SCH (00:15)
[2020-11-26] MEDS: INSULIN HUMULIN R 100 UNIT/ML 3ML SQ SCH ×4 (00:16→20:00)
[2020-11-26 04:39] LABS: BASOPHILS % (AUTO) 0.4 % (0.0-5.0); HEMATOCRIT 27.3 % (36-48); LYMPHOCYTES % (AUTO) 7.4 % (21.0-51.0); MEAN CORPUSCULAR HEMOGLOBIN 32.4 pg (27.0-33.0); MEAN CORPUSCULAR HGB CONC 31.1 g/dL (32.0-36.0); MEAN CORPUSCULAR VOLUME 104.2 fL (79-99); MONOCYTES % (AUTO) 1.7 % (3.0-13.0); NEUTROPHILS % (AUTO) 84.7 % (40.0-77.0); NUCLEATED RED BLOOD CELLS 6.6 % (0.0-0.19); PLATELET COUNT (AUTO) 152 K/uL (130-400); RED BLOOD CELL COUNT(AUTO) 2.62 MIL/uL (4.00-5.50); RED CELL DISTRIBUTION WIDTH 25.4 % (11.0-15.5); WHITE BLOOD COUNT (AUTO) 18.3 K/uL (4.8-10.8)
[2020-11-26 04:51] LABS: INR 1.04 (0.85-1.15); PROTHROMBIN TIME 11.3 SEC (9.6-11.6)
[2020-11-26 04:53] LABS: ALBUMIN 2.1 g/dL (3.5-5.0); CREATININE 0.6 mg/dL (0.5-1.5); MAGNESIUM 2.1 mg/dL (1.80-2.40); PHOSPHORUS 2.8 mg/dL (2.5-4.9); POTASSIUM 5.3 mmol/L (3.5-5.1); TOTAL PROTEIN, SERUM 4.8 g/dL (6.0-8.3)
[2020-11-26 04:55] LABS: % IRON SATURATION 93.9 % (22-44)
[2020-11-26] MEDS: MEROPENEM 1 GM VIAL IVP SCH ×3 (05:29→22:00)
[2020-11-26] MEDS: DOCUSATE NA 100MG/10ML UDCUP PO SCH ×3 (06:00→21:03)
[2020-11-26] MEDS: FUROSEMIDE 20MG VIAL IV SCH (08:19)
[2020-11-26] MEDS: METOCLOPRAMIDE 10 MG/2 ML VIAL IVP SCH ×3 (08:19→17:00)
[2020-11-26] MEDS: POTASSIUM CHLORIDE 10% ELIXIR 20 MEQ/15 ML UDCUP NG SCH (08:20)
[2020-11-26] MEDS: MIDODRINE HCL 5 MG TABLET PO SCH ×3 (08:21→21:03)
[2020-11-26] MEDS: CLONAZEPAM 1MG TAB PO SCH ×2 (08:21→21:02)
[2020-11-26] MEDS: ASPIRIN 81MG CHEW TAB PEG SCH (08:21)
[2020-11-26] MEDS: PANTOPRAZOLE 40 MG/VIAL IVP SCH (08:21)
[2020-11-26] MEDS: SOLU-MEDROL 40MG VIAL IVP SCH ×2 (08:22→21:00)
[2020-11-26] MEDS: VANCOMYCIN 750MG VIAL IVPB SCH (08:23)
[2020-11-26] MEDS: FONDAPARINUX SODIUM 2.5 MG/0.5 ML SQ SCH (09:00)
[2020-11-26 11:05] LABS: ABG BASE EXCESS 7.2 mmol/L (-2.0-3.0); ABG HCO3 32.1 mmol/L (21.0-28.0); ABG OXYGEN SATURATION 95.4 % (95.0-99.0); ABG PCO2 47 mmHg (32-45)
[2020-11-26] MEDS: 0.9% NACL 250ML 250 ML IV SCH (12:43)
[2020-11-26] MEDS: MICAFUNGIN 100MG+NS 100ML 100 ML IV SCH (15:00)
[2020-11-26] MEDS: MIDAZOLAM 100MG-0.9% NS 100ML 50 ML IV PRN (15:01)
[2020-11-26] MEDS: FUROSEMIDE 40MG VIAL IV SCH (21:02)
[2020-11-26] MEDS ORDERED: RENAL DOSE IV SCH (22:00)
[2020-11-26] MEDS ORDERED: EPOETIN ALFA-EPBX (NON-ESRD) 10,000 UNIT/ML VIAL SQ SCH (23:30)
[2020-11-27] VITALS (24 sets, daily range): BP systolic 90–128; BP diastolic 46–89
[2020-11-27] MEDS: CEFTRIAXONE 2GM VIAL IVP SCH ×2 (00:07→20:25)
[2020-11-27] MEDS: INSULIN HUMULIN R 100 UNIT/ML 3ML SQ SCH ×4 (00:58→19:20)
[2020-11-27] MEDS: MIDAZOLAM 100MG-0.9% NS 100ML 50 ML IV PRN ×2 (01:41→16:35)
[2020-11-27 01:58] LABS: APPEARANCE,URINE Cloudy (CLEAR); BILIRUBIN,URINE Negative (NEGATIVE); COLOR,URINE Yellow (YELLOW); GLUCOSE, URINE (UA) Negative (NEGATIVE); KETONES,URINE Negative (NEGATIVE); LEUKOCYTE ESTERASE ,URINE Trace (NEGATIVE); NITRATE,URINE Negative (NEGATIVE); OCCULT BLOOD,URINE Small (NEGATIVE); PROTEIN,URINE Negative (NEGATIVE); UROBILINOGEN,URINE 0.2 mg/dL (0.2-1.0)
[2020-11-27 02:11] LABS: RBC,URINE 0-1 /HPF (0-1)
[2020-11-27 02:12] LABS: BACTERIA,URINE Few /HPF (None Seen); CALCIUM OXALATE CRYSTALS,UR Few /LPF (None Seen); SQUAMOUS EPITHELIAL CELL,UR 0-2 /HPF (0-2)
[2020-11-27] MEDS: DEXMEDETOMIDINE 400MCG/NS100ML IV SCH ×3 (03:12→16:35)
[2020-11-27 05:22] LABS: BASOPHILS % (AUTO) 0.5 % (0.0-5.0); HEMATOCRIT 27.9 % (36-48); LYMPHOCYTES % (AUTO) 7.5 % (21.0-51.0); MEAN CORPUSCULAR HEMOGLOBIN 33.6 pg (27.0-33.0); MEAN CORPUSCULAR HGB CONC 31.9 g/dL (32.0-36.0); MEAN CORPUSCULAR VOLUME 105.3 fL (79-99); NEUTROPHILS % (AUTO) 87.2 % (40.0-77.0); NUCLEATED RED BLOOD CELLS 3.5 % (0.0-0.19); PLATELET COUNT (AUTO) 124 K/uL (130-400); RED BLOOD CELL COUNT(AUTO) 2.65 MIL/uL (4.00-5.50); WHITE BLOOD COUNT (AUTO) 20.9 K/uL (4.8-10.8)
[2020-11-27 05:43] LABS: % IRON SATURATION 36.8 % (22-44)
[2020-11-27 06:04] LABS: ALBUMIN 2.2 g/dL (3.5-5.0); CREATININE 0.6 mg/dL (0.5-1.5); CRP QUANTITATIVE 24.2 mg/L (0.00-9.0); POTASSIUM 4.6 mmol/L (3.5-5.1); TOTAL PROTEIN, SERUM 4.9 g/dL (6.0-8.3)
[2020-11-27] MEDS: MEROPENEM 1 GM VIAL IVP SCH ×3 (06:32→20:23)
[2020-11-27] MEDS: DOCUSATE NA 100MG/10ML UDCUP PO SCH ×3 (06:32→20:25)
[2020-11-27 09:22] LABS: ABG BASE EXCESS 9.7 mmol/L (-2.0-3.0); ABG HCO3 34.1 mmol/L (21.0-28.0); ABG OXYGEN SATURATION 94.2 % (95.0-99.0); ABG PCO2 46 mmHg (32-45)
[2020-11-27] MEDS: POTASSIUM CHLORIDE 10% ELIXIR 20 MEQ/15 ML UDCUP NG SCH (09:25)
[2020-11-27] MEDS: FUROSEMIDE 40MG VIAL IV SCH ×2 (09:26→20:25)
[2020-11-27] MEDS: MIDODRINE HCL 5 MG TABLET PO SCH ×3 (09:26→20:25)
[2020-11-27] MEDS: CLONAZEPAM 1MG TAB PO SCH ×2 (09:26→20:25)
[2020-11-27] MEDS: SOLU-MEDROL 40MG VIAL IVP SCH ×2 (09:26→20:26)
[2020-11-27] MEDS: ASPIRIN 81MG CHEW TAB PEG SCH (09:27)
[2020-11-27] MEDS: PANTOPRAZOLE 40 MG/VIAL IVP SCH (09:27)
[2020-11-27] MEDS: FENTANYL 2500MCG+NS 250ML 250 ML IV SCH (09:41)
[2020-11-27] MEDS: FONDAPARINUX SODIUM 2.5 MG/0.5 ML SQ SCH (09:44)
[2020-11-27] MEDS: METOCLOPRAMIDE 10 MG/2 ML VIAL IVP SCH ×3 (09:47→16:35)
[2020-11-27] MEDS: 0.9% NACL 250ML 250 ML IV SCH ×2 (10:27)
[2020-11-27] MEDS: VANCOMYCIN 750MG VIAL IVPB SCH (10:27)
[2020-11-27] MEDS: ARTIFICIAL TEARS 3.5 GM OINTMENT OD SCH ×3 (13:07→21:00)
[2020-11-27] MEDS: MICAFUNGIN 100MG+NS 100ML 100 ML IV SCH (14:45)
[2020-11-27] MEDS: ACETAMINOPHEN 325 MG/10.15ML UDCUP PEG PRN (20:24)
[2020-11-28] VITALS (41 sets, daily range): BP systolic 78–130; BP diastolic 47–72
[2020-11-28] MEDS: DEXMEDETOMIDINE 400MCG/NS100ML IV SCH ×2 (01:29→10:00)
[2020-11-28] MEDS: INSULIN HUMULIN R 100 UNIT/ML 3ML SQ SCH ×4 (01:30→18:00)
[2020-11-28] MEDS: MEROPENEM 1 GM VIAL IVP SCH ×3 (05:10→22:01)
[2020-11-28] MEDS: DOCUSATE NA 100MG/10ML UDCUP PO SCH ×3 (05:10→22:01)
[2020-11-28 05:33] LABS: BASOPHILS % (AUTO) 0.2 % (0.0-5.0); EOSINOPHILS % (AUTO) 0.1 % (0.0-8.0); HEMATOCRIT 26.3 % (36-48); LYMPHOCYTES % (AUTO) 10.6 % (21.0-51.0); MEAN CORPUSCULAR HEMOGLOBIN 32.2 pg (27.0-33.0); MEAN CORPUSCULAR VOLUME 107.3 fL (79-99); MONOCYTES % (AUTO) 1.5 % (3.0-13.0); NEUTROPHILS % (AUTO) 84.3 % (40.0-77.0); NUCLEATED RED BLOOD CELLS 2.1 % (0.0-0.19); PLATELET COUNT (AUTO) 101 K/uL (130-400); RED BLOOD CELL COUNT(AUTO) 2.45 MIL/uL (4.00-5.50); RED CELL DISTRIBUTION WIDTH 23.1 % (11.0-15.5); WHITE BLOOD COUNT (AUTO) 17.2 K/uL (4.8-10.8)
[2020-11-28 06:18] LABS: BILIRUBIN,TOTAL 0.7 mg/dL (0.2-1.0); CREATININE 0.8 mg/dL (0.5-1.5); CRP QUANTITATIVE 14.5 mg/L (0.00-9.0); POTASSIUM 3.9 mmol/L (3.5-5.1); TOTAL PROTEIN, SERUM 4.7 g/dL (6.0-8.3)
[2020-11-28 07:42] LABS: ABG BASE EXCESS 6.3 mmol/L (-2.0-3.0); ABG HCO3 30.3 mmol/L (21.0-28.0); ABG PCO2 41 mmHg (32-45)
[2020-11-28] MEDS: 0.9% NACL 250ML 250 ML IV SCH ×2 (09:00→09:57)
[2020-11-28] MEDS: FONDAPARINUX SODIUM 2.5 MG/0.5 ML SQ SCH (09:56)
[2020-11-28] MEDS: VANCOMYCIN 750MG VIAL IVPB SCH (09:57)
[2020-11-28] MEDS: POTASSIUM CHLORIDE 10% ELIXIR 20 MEQ/15 ML UDCUP NG SCH (09:58)
[2020-11-28] MEDS: FUROSEMIDE 40MG VIAL IV SCH (09:58)
[2020-11-28] MEDS: SOLU-MEDROL 40MG VIAL IVP SCH ×2 (09:58→22:01)
[2020-11-28] MEDS: ASPIRIN 81MG CHEW TAB PEG SCH (09:59)
[2020-11-28] MEDS: MIDODRINE HCL 5 MG TABLET PO SCH ×3 (09:59→22:01)
[2020-11-28] MEDS: CLONAZEPAM 1MG TAB PO SCH ×2 (09:59→22:01)
[2020-11-28] MEDS: ARTIFICIAL TEARS 3.5 GM OINTMENT OD SCH ×4 (10:01→22:08)
[2020-11-28] MEDS: METOCLOPRAMIDE 10 MG/2 ML VIAL IVP SCH ×3 (10:05→16:53)
[2020-11-28] MEDS: MICAFUNGIN 100MG+NS 100ML 100 ML IV SCH (15:25)
[2020-11-28] MEDS: BALSAM PERU/CASTOR OIL 60 GM TUBE TP SCH ×2 (15:25→22:08)
[2020-11-28 22:24] LABS: CREATININE 0.7 mg/dL (0.5-1.5); POTASSIUM 3.6 mmol/L (3.5-5.1)
[2020-11-28 22:27] LABS: MAGNESIUM 2.1 mg/dL (1.80-2.40); PHOSPHORUS 3.1 mg/dL (2.5-4.9)
[2020-11-28] MEDS ORDERED: LIDOCAINE HCL-MPF 1% 2ML VIAL IV PRN (23:30)
[2020-11-28] MEDS ORDERED: KCL 20 MEQ ERTAB PO PRN (23:30)
[2020-11-28] MEDS: POTASSIUM CHLORIDE 10% ELIXIR 20 MEQ/15 ML UDCUP PO PRN (23:41)
[2020-11-29] VITALS (57 sets, daily range): BP systolic 77–153; BP diastolic 42–93
[2020-11-29] MEDS: FUROSEMIDE 40MG VIAL IV SCH ×3 (00:16→21:00)
[2020-11-29 04:36] LABS: BASOPHILS % (AUTO) 0.3 % (0.0-5.0); HEMATOCRIT 25.9 % (36-48); LYMPHOCYTES % (AUTO) 6.5 % (21.0-51.0); MEAN CORPUSCULAR HEMOGLOBIN 32.9 pg (27.0-33.0); MEAN CORPUSCULAR HGB CONC 30.9 g/dL (32.0-36.0); MEAN CORPUSCULAR VOLUME 106.6 fL (79-99); NEUTROPHILS % (AUTO) 87.5 % (40.0-77.0); NUCLEATED RED BLOOD CELLS 4.1 % (0.0-0.19); PLATELET COUNT (AUTO) 141 K/uL (130-400); RED BLOOD CELL COUNT(AUTO) 2.43 MIL/uL (4.00-5.50); RED CELL DISTRIBUTION WIDTH 23.5 % (11.0-15.5); WHITE BLOOD COUNT (AUTO) 19.7 K/uL (4.8-10.8)
[2020-11-29 05:11] LABS: ALBUMIN 2.1 g/dL (3.5-5.0); BILIRUBIN,TOTAL 0.8 mg/dL (0.2-1.0); CREATININE 0.6 mg/dL (0.5-1.5); CRP QUANTITATIVE 12.2 mg/L (0.00-9.0); POTASSIUM 4.4 mmol/L (3.5-5.1); TOTAL PROTEIN, SERUM 4.9 g/dL (6.0-8.3)
[2020-11-29] MEDS: DOCUSATE NA 100MG/10ML UDCUP PO SCH ×3 (05:33→21:08)
[2020-11-29] MEDS: MEROPENEM 1 GM VIAL IVP SCH ×3 (05:33→21:42)
[2020-11-29] MEDS: INSULIN HUMULIN R 100 UNIT/ML 3ML SQ SCH ×4 (08:51→17:25)
[2020-11-29] MEDS: VANCOMYCIN 750MG VIAL IVPB SCH (08:52)
[2020-11-29] MEDS: 0.9% NACL 250ML 250 ML IV SCH ×2 (08:52→08:54)
[2020-11-29] MEDS: FONDAPARINUX SODIUM 2.5 MG/0.5 ML SQ SCH (08:53)
[2020-11-29] MEDS: ASPIRIN 81MG CHEW TAB PEG SCH (08:54)
[2020-11-29] MEDS: SOLU-MEDROL 40MG VIAL IVP SCH ×2 (08:55→20:36)
[2020-11-29] MEDS: CLONAZEPAM 1MG TAB PO SCH ×2 (08:55→20:42)
[2020-11-29] MEDS: MIDODRINE HCL 5 MG TABLET PO SCH ×3 (08:55→21:43)
[2020-11-29] MEDS: ARTIFICIAL TEARS 3.5 GM OINTMENT OD SCH ×4 (08:57→21:11)
[2020-11-29] MEDS: POTASSIUM CHLORIDE 10% ELIXIR 20 MEQ/15 ML UDCUP NG SCH (08:57)
[2020-11-29] MEDS: BALSAM PERU/CASTOR OIL 60 GM TUBE TP SCH ×3 (08:58→21:11)
[2020-11-29] MEDS: METOCLOPRAMIDE 10 MG/2 ML VIAL IVP SCH ×3 (08:58→17:24)
[2020-11-29] MEDS: MICAFUNGIN 100MG+NS 100ML 100 ML IV SCH (14:51)
[2020-11-29] MEDS ORDERED: FENTANYL 2500MCG+NS 250ML 250 ML IV ONE (19:58)
[2020-11-29 20:19] LABS: ABG BASE EXCESS 5.3 mmol/L (-2.0-3.0); ABG HCO3 30.8 mmol/L (21.0-28.0); ABG OXYGEN SATURATION 89.1 % (95.0-99.0); ABG PCO2 50 mmHg (32-45)
[2020-11-29] MEDS ORDERED: FENTANYL 2500MCG+NS 250ML 250 ML IV SCH (20:30)
[2020-11-29] MEDS: DEXMEDETOMIDINE 400MCG/NS100ML IV SCH (20:43)
[2020-11-29] MEDS: METOPROLOL TARTRATE 25 MG TAB PEG SCH (21:00)
[2020-11-29] MEDS ORDERED: ALBUMIN (HUMAN) 5% 500 ML IV SCH (21:00)
[2020-11-29] MEDS ORDERED: VASOPRESSIN 40 UNITS in 0.9%NACL 50ML 40 ML IV SCH (21:00)
[2020-11-29] MEDS ORDERED: ALBUMIN (HUMAN) 5% 500 ML IV ONE (21:18)
[2020-11-29] MEDS: POTASSIUM CHLORIDE 10% ELIXIR 20 MEQ/15 ML UDCUP PO PRN (21:42)
[2020-11-30] VITALS (93 sets, daily range): BP systolic 89–145; BP diastolic 49–108
[2020-11-30] MEDS: VECURONIUM 10MG/10ML IV PRN (01:55)
[2020-11-30] MEDS: INSULIN HUMULIN R 100 UNIT/ML 3ML SQ SCH ×5 (01:56→23:30)
[2020-11-30] MEDS: DEXMEDETOMIDINE 400MCG/NS100ML IV SCH ×2 (02:22→06:01)
[2020-11-30] MEDS: DOCUSATE NA 100MG/10ML UDCUP PO SCH ×3 (05:41→21:07)
[2020-11-30] MEDS: MEROPENEM 1 GM VIAL IVP SCH ×3 (05:55→21:07)
[2020-11-30 06:00] LABS: ALBUMIN 2.8 g/dL (3.5-5.0); BILIRUBIN,TOTAL 0.7 mg/dL (0.2-1.0); CREATININE 0.6 mg/dL (0.5-1.5); POTASSIUM 4.7 mmol/L (3.5-5.1); TOTAL PROTEIN, SERUM 5.3 g/dL (6.0-8.3)
[2020-11-30 07:26] LABS: BASOPHILS % (AUTO) 0.2 % (0.0-5.0); EOSINOPHILS % (AUTO) 0.4 % (0.0-8.0); HEMATOCRIT 22.6 % (36-48); LYMPHOCYTES % (AUTO) 9.4 % (21.0-51.0); MEAN CORPUSCULAR HEMOGLOBIN 32.5 pg (27.0-33.0); MEAN CORPUSCULAR HGB CONC 30.1 g/dL (32.0-36.0); MEAN CORPUSCULAR VOLUME 108.1 fL (79-99); MONOCYTES % (AUTO) 2.1 % (3.0-13.0); NEUTROPHILS % (AUTO) 84.9 % (40.0-77.0); NUCLEATED RED BLOOD CELLS 8.3 % (0.0-0.19); PLATELET COUNT (AUTO) 124 K/uL (130-400); RED BLOOD CELL COUNT(AUTO) 2.09 MIL/uL (4.00-5.50); WHITE BLOOD COUNT (AUTO) 12.8 K/uL (4.8-10.8)
[2020-11-30 08:26] LABS: LYMPHOCYTES % (MANUAL) 4 % (22-44); MAN.DIFF COMMENT-IMPRESSION MANUAL DIFFERENTIAL; MONOCYTES % (MANUAL) 2 % (2-9); PLATELET MORPHOLOGY COMMENT SLIGHTLY DECREASED; SEGMENTED NEUTROPHILS % 94 % (40-70)
[2020-11-30] MEDS: FUROSEMIDE 40MG VIAL IV SCH ×2 (09:00→20:48)
[2020-11-30] MEDS: VANCOMYCIN 750MG VIAL IVPB SCH (09:01)
[2020-11-30] MEDS: 0.9% NACL 250ML 250 ML IV SCH ×2 (09:01)
[2020-11-30] MEDS: ASPIRIN 81MG CHEW TAB PEG SCH (09:01)
[2020-11-30] MEDS: CLONAZEPAM 1MG TAB PO SCH ×2 (09:02→20:50)
[2020-11-30] MEDS: POTASSIUM CHLORIDE 10% ELIXIR 20 MEQ/15 ML UDCUP NG SCH (09:02)
[2020-11-30] MEDS: MIDODRINE HCL 5 MG TABLET PO SCH ×3 (09:03→20:53)
[2020-11-30] MEDS: FONDAPARINUX SODIUM 2.5 MG/0.5 ML SQ SCH (09:04)
[2020-11-30] MEDS: METOPROLOL TARTRATE 25 MG TAB PEG SCH ×2 (09:04→20:49)
[2020-11-30] MEDS: ARTIFICIAL TEARS 3.5 GM OINTMENT OD SCH ×4 (09:04→20:56)
[2020-11-30] MEDS: SOLU-MEDROL 40MG VIAL IVP SCH ×2 (09:05→20:49)
[2020-11-30] MEDS: METOCLOPRAMIDE 10 MG/2 ML VIAL IVP SCH ×3 (09:05→17:34)
[2020-11-30] MEDS: BALSAM PERU/CASTOR OIL 60 GM TUBE TP SCH ×3 (09:05→20:53)
[2020-11-30 14:14] LABS: HEMATOCRIT 30.2 % (36-48)
[2020-12-01] VITALS (44 sets, daily range): BP systolic 96–159; BP diastolic 71–93
[2020-12-01 04:23] LABS: BASOPHILS % (AUTO) 0.3 % (0.0-5.0); EOSINOPHILS % (AUTO) 0.5 % (0.0-8.0); HEMATOCRIT 28.9 % (36-48); LYMPHOCYTES % (AUTO) 7.3 % (21.0-51.0); MEAN CORPUSCULAR HEMOGLOBIN 33.2 pg (27.0-33.0); MEAN CORPUSCULAR HGB CONC 32.5 g/dL (32.0-36.0); MEAN CORPUSCULAR VOLUME 102.1 fL (79-99); MONOCYTES % (AUTO) 1.4 % (3.0-13.0); NEUTROPHILS % (AUTO) 88.8 % (40.0-77.0); PLATELET COUNT (AUTO) 131 K/uL (130-400); RED BLOOD CELL COUNT(AUTO) 2.83 MIL/uL (4.00-5.50); RED CELL DISTRIBUTION WIDTH 23.6 % (11.0-15.5); WHITE BLOOD COUNT (AUTO) 11.5 K/uL (4.8-10.8)
[2020-12-01 04:54] LABS: ALBUMIN 2.7 g/dL (3.5-5.0); BILIRUBIN,TOTAL 1.6 mg/dL (0.2-1.0); CREATININE 0.5 mg/dL (0.5-1.5); CRP QUANTITATIVE 76.2 mg/L (0.00-9.0); POTASSIUM 3.8 mmol/L (3.5-5.1); TOTAL PROTEIN, SERUM 5.3 g/dL (6.0-8.3)
[2020-12-01] MEDS: DOCUSATE NA 100MG/10ML UDCUP PO SCH ×3 (05:34→21:14)
[2020-12-01] MEDS: MEROPENEM 1 GM VIAL IVP SCH (05:34)
[2020-12-01] MEDS: INSULIN HUMULIN R 100 UNIT/ML 3ML SQ SCH ×3 (05:48→18:13)
[2020-12-01] MEDS: VANCOMYCIN 750MG VIAL IVPB SCH (08:56)
[2020-12-01] MEDS: SOLU-MEDROL 40MG VIAL IVP SCH ×2 (08:56→20:34)
[2020-12-01] MEDS: ASPIRIN 81MG CHEW TAB PEG SCH (08:56)
[2020-12-01] MEDS: FUROSEMIDE 40MG VIAL IV SCH ×2 (08:57→20:34)
[2020-12-01] MEDS: 0.9% NACL 250ML 250 ML IV SCH ×2 (08:57)
[2020-12-01] MEDS: METOCLOPRAMIDE 10 MG/2 ML VIAL IVP SCH ×3 (08:57→18:12)
[2020-12-01] MEDS: ARTIFICIAL TEARS 3.5 GM OINTMENT OD SCH ×4 (08:58→20:36)
[2020-12-01] MEDS: METOPROLOL TARTRATE 25 MG TAB PEG SCH ×2 (08:58→20:35)
[2020-12-01] MEDS: POTASSIUM CHLORIDE 10% ELIXIR 20 MEQ/15 ML UDCUP NG SCH (08:58)
[2020-12-01] MEDS: MIDODRINE HCL 5 MG TABLET PO SCH ×3 (08:59→20:36)
[2020-12-01] MEDS: CLONAZEPAM 1MG TAB PO SCH ×2 (08:59→20:35)
[2020-12-01] MEDS: FONDAPARINUX SODIUM 2.5 MG/0.5 ML SQ SCH (08:59)
[2020-12-01] MEDS: BALSAM PERU/CASTOR OIL 60 GM TUBE TP SCH ×3 (09:00→20:36)
[2020-12-01] MEDS ORDERED: LACTATED RINGERS 1000ML 1,000 ML IV ONE (22:50)
[2020-12-01] MEDS ORDERED: LACTATED RINGERS 1000ML 1,000 ML IV SCH (23:00)
[2020-12-02] VITALS (44 sets, daily range): BP systolic 117–157; BP diastolic 69–90
[2020-12-02] MEDS ORDERED: ALTEPLASE 2MG VIAL 2 MG/VIAL VIAL IVCATH ONE (01:30)
[2020-12-02] MEDS: INSULIN HUMULIN R 100 UNIT/ML 3ML SQ SCH ×4 (06:00→17:22)
[2020-12-02] MEDS: DOCUSATE NA 100MG/10ML UDCUP PO SCH ×3 (06:15→21:21)
[2020-12-02] MEDS: 0.9% NACL 250ML 250 ML IV SCH ×2 (09:00→09:20)
[2020-12-02] MEDS: VANCOMYCIN 750MG VIAL IVPB SCH (09:19)
[2020-12-02] MEDS: ARTIFICIAL TEARS 3.5 GM OINTMENT OD SCH ×4 (09:20→21:20)
[2020-12-02] MEDS: METOPROLOL TARTRATE 25 MG TAB PEG SCH ×2 (09:20→21:20)
[2020-12-02] MEDS: SOLU-MEDROL 40MG VIAL IVP SCH ×2 (09:21→21:19)
[2020-12-02] MEDS: POTASSIUM CHLORIDE 10% ELIXIR 20 MEQ/15 ML UDCUP NG SCH (09:21)
[2020-12-02] MEDS: ASPIRIN 81MG CHEW TAB PEG SCH (09:21)
[2020-12-02] MEDS: FONDAPARINUX SODIUM 2.5 MG/0.5 ML SQ SCH (09:22)
[2020-12-02] MEDS: FUROSEMIDE 40MG VIAL IV SCH ×2 (09:22→21:19)
[2020-12-02] MEDS: MIDODRINE HCL 5 MG TABLET PO SCH ×3 (09:22→21:20)
[2020-12-02] MEDS: CLONAZEPAM 1MG TAB PO SCH (09:22)
[2020-12-02] MEDS: BALSAM PERU/CASTOR OIL 60 GM TUBE TP SCH ×3 (09:23→21:20)
[2020-12-02] MEDS: METOCLOPRAMIDE 10 MG/2 ML VIAL IVP SCH ×3 (09:23→16:44)
[2020-12-03] VITALS (48 sets, daily range): BP systolic 87–153; BP diastolic 52–91
[2020-12-03] MEDS ORDERED: DIAZEPAM 5 MG TABLET ONE (00:52)
[2020-12-03 05:27] LABS: BASOPHILS % (AUTO) 0.3 % (0.0-5.0); EOSINOPHILS % (AUTO) 0.1 % (0.0-8.0); HEMATOCRIT 28.4 % (36-48); LYMPHOCYTES % (AUTO) 6.3 % (21.0-51.0); MEAN CORPUSCULAR HEMOGLOBIN 31.4 pg (27.0-33.0); MEAN CORPUSCULAR HGB CONC 30.3 g/dL (32.0-36.0); MEAN CORPUSCULAR VOLUME 103.6 fL (79-99); MONOCYTES % (AUTO) 1.5 % (3.0-13.0); NUCLEATED RED BLOOD CELLS 1.7 % (0.0-0.19); PLATELET COUNT (AUTO) 146 K/uL (130-400); RED BLOOD CELL COUNT(AUTO) 2.74 MIL/uL (4.00-5.50); RED CELL DISTRIBUTION WIDTH 22.5 % (11.0-15.5); WHITE BLOOD COUNT (AUTO) 15.6 K/uL (4.8-10.8)
[2020-12-03] MEDS: DOCUSATE NA 100MG/10ML UDCUP PO SCH ×3 (05:35→21:51)
[2020-12-03] MEDS: INSULIN HUMULIN R 100 UNIT/ML 3ML SQ SCH ×4 (05:39→17:15)
[2020-12-03 05:54] LABS: ALBUMIN 2.5 g/dL (3.5-5.0); BILIRUBIN,TOTAL 1.4 mg/dL (0.2-1.0); CREATININE 0.7 mg/dL (0.5-1.5); CRP QUANTITATIVE 47.6 mg/L (0.00-9.0); POTASSIUM 3.8 mmol/L (3.5-5.1); TOTAL PROTEIN, SERUM 5.1 g/dL (6.0-8.3)
[2020-12-03] MEDS: METOCLOPRAMIDE 10 MG/2 ML VIAL IVP SCH ×3 (07:25→16:37)
[2020-12-03] MEDS: MIDODRINE HCL 5 MG TABLET PO SCH ×3 (08:20→20:31)
[2020-12-03] MEDS: METOPROLOL TARTRATE 25 MG TAB PEG SCH ×2 (08:20→20:30)
[2020-12-03] MEDS: ASPIRIN 81MG CHEW TAB PEG SCH (08:20)
[2020-12-03] MEDS: FONDAPARINUX SODIUM 2.5 MG/0.5 ML SQ SCH (08:21)
[2020-12-03] MEDS: SOLU-MEDROL 40MG VIAL IVP SCH ×2 (08:24→20:31)
[2020-12-03] MEDS: FUROSEMIDE 40MG VIAL IV SCH ×2 (08:24→20:31)
[2020-12-03] MEDS: POTASSIUM CHLORIDE 10% ELIXIR 20 MEQ/15 ML UDCUP NG SCH (08:25)
[2020-12-03] MEDS: ARTIFICIAL TEARS 3.5 GM OINTMENT OD SCH ×4 (08:25→21:51)
[2020-12-03] MEDS: BALSAM PERU/CASTOR OIL 60 GM TUBE TP SCH ×3 (08:26→21:51)
[2020-12-03] MEDS: VANCOMYCIN 750MG VIAL IVPB SCH (09:08)
[2020-12-03] MEDS: 0.9% NACL 250ML 250 ML IV SCH ×2 (09:08→09:09)
[2020-12-04] VITALS (70 sets, daily range): BP systolic 86–165; BP diastolic 51–95
[2020-12-04] MEDS: INSULIN HUMULIN R 100 UNIT/ML 3ML SQ SCH ×4 (00:01→18:40)
[2020-12-04] MEDS: DOCUSATE NA 100MG/10ML UDCUP PO SCH ×3 (05:20→22:45)
[2020-12-04] MEDS: METOCLOPRAMIDE 10 MG/2 ML VIAL IVP SCH ×3 (06:19→16:48)
[2020-12-04] MEDS: MIDODRINE HCL 5 MG TABLET PO SCH ×3 (08:26→21:00)
[2020-12-04] MEDS: FUROSEMIDE 40MG VIAL IV SCH ×2 (08:26→22:46)
[2020-12-04] MEDS: SOLU-MEDROL 40MG VIAL IVP SCH ×2 (08:27→22:50)
[2020-12-04] MEDS: METOPROLOL TARTRATE 25 MG TAB PEG SCH ×2 (08:27→22:46)
[2020-12-04] MEDS: ASPIRIN 81MG CHEW TAB PEG SCH (08:27)
[2020-12-04] MEDS: FONDAPARINUX SODIUM 2.5 MG/0.5 ML SQ SCH (08:28)
[2020-12-04] MEDS: BALSAM PERU/CASTOR OIL 60 GM TUBE TP SCH ×3 (08:29→22:49)
[2020-12-04] MEDS: ARTIFICIAL TEARS 3.5 GM OINTMENT OD SCH ×4 (08:29→23:08)
[2020-12-04] MEDS: POTASSIUM CHLORIDE 10% ELIXIR 20 MEQ/15 ML UDCUP NG SCH (08:30)
[2020-12-04] MEDS: 0.9% NACL 250ML 250 ML IV SCH ×2 (10:00→10:01)
[2020-12-04] MEDS: VANCOMYCIN 750MG VIAL IVPB SCH (10:00)
[2020-12-04] MEDS ORDERED: IPRATROPIUM/ALBUTEROL SULFATE 3 ML SOLUTION IH SCH (11:00)
[2020-12-04 11:15] LABS: ABG BASE EXCESS 7.7 mmol/L (-2.0-3.0); ABG HCO3 31.4 mmol/L (21.0-28.0); ABG OXYGEN SATURATION 85.7 % (95.0-99.0); ABG PCO2 40 mmHg (32-45)
[2020-12-04] MEDS ORDERED: PROPOFOL 1000 MG/100 ML IV PRN (11:30)
[2020-12-04 11:50] LABS: BASOPHILS % (AUTO) 0.6 % (0.0-5.0); EOSINOPHILS % (AUTO) 0.5 % (0.0-8.0); HEMATOCRIT 26.2 % (36-48); LYMPHOCYTES % (AUTO) 8.8 % (21.0-51.0); MEAN CORPUSCULAR HEMOGLOBIN 32.3 pg (27.0-33.0); MEAN CORPUSCULAR HGB CONC 30.5 g/dL (32.0-36.0); MEAN CORPUSCULAR VOLUME 105.6 fL (79-99); MONOCYTES % (AUTO) 1.4 % (3.0-13.0); NEUTROPHILS % (AUTO) 85.3 % (40.0-77.0); PLATELET COUNT (AUTO) 152 K/uL (130-400); RED BLOOD CELL COUNT(AUTO) 2.48 MIL/uL (4.00-5.50); RED CELL DISTRIBUTION WIDTH 22.3 % (11.0-15.5); WHITE BLOOD COUNT (AUTO) 22.2 K/uL (4.8-10.8)
[2020-12-04] MEDS ORDERED: CISATRACURIUM BESYLATE 100 MG in 0.9%NACL 100ML 100 ML IV NR (12:00)
[2020-12-04 12:22] LABS: POTASSIUM 4.4 mmol/L (3.5-5.1)
[2020-12-04 12:25] LABS: ALBUMIN 2.5 g/dL (3.5-5.0); BILIRUBIN,TOTAL 1.2 mg/dL (0.2-1.0); TOTAL PROTEIN, SERUM 5.2 g/dL (6.0-8.3)
[2020-12-04] MEDS: IPRATROPIUM/ALBUTEROL SULFATE 3 ML SOLUTION IH SCH ×3 (12:27→18:54)
[2020-12-04] MEDS ORDERED: METOPROLOL TARTRATE 25 MG TAB PEG SCH (12:30)
[2020-12-04 12:42] LABS: LYMPHOCYTES % (MANUAL) 12 % (22-44); MAN.DIFF COMMENT-IMPRESSION MANUAL DIFFERENTIAL; MONOCYTES % (MANUAL) 1 % (2-9); PLATELET MORPHOLOGY COMMENT ADEQUATE; SEGMENTED NEUTROPHILS % 87 % (40-70)
[2020-12-04] MEDS: PROPOFOL 1000 MG/100 ML 100 ML IV PRN (16:46)
[2020-12-04] MEDS ORDERED: CALCIUM GLUC 1GM 1 GM in 0.9%NACL 100ML 100 ML IV ONE (17:30)
[2020-12-04] MEDS ORDERED: METOPROLOL TARTRATE 1 MG/ML 5ML VIAL IV SCH (18:30)
[2020-12-05] VITALS (55 sets, daily range): BP systolic 90–136; BP diastolic 58–83
[2020-12-05] MEDS: ACETAMINOPHEN 325 MG/10.15ML UDCUP PEG PRN
[2020-12-05] MEDS: IPRATROPIUM/ALBUTEROL SULFATE 3 ML SOLUTION IH SCH ×4 (01:50→12:52)
[2020-12-05 04:16] LABS: BASOPHILS % (AUTO) 0.6 % (0.0-5.0); EOSINOPHILS % (AUTO) 0.2 % (0.0-8.0); HEMATOCRIT 23.5 % (36-48); LYMPHOCYTES % (AUTO) 6.6 % (21.0-51.0); MEAN CORPUSCULAR HEMOGLOBIN 33.6 pg (27.0-33.0); MEAN CORPUSCULAR HGB CONC 31.5 g/dL (32.0-36.0); MEAN CORPUSCULAR VOLUME 106.8 fL (79-99); MONOCYTES % (AUTO) 5.7 % (3.0-13.0); NUCLEATED RED BLOOD CELLS 19.4 % (0.0-0.19); PLATELET COUNT (AUTO) 150 K/uL (130-400); RED CELL DISTRIBUTION WIDTH 23.2 % (11.0-15.5); WHITE BLOOD COUNT (AUTO) 16.4 K/uL (4.8-10.8)
[2020-12-05 04:40] LABS: ALBUMIN 2.3 g/dL (3.5-5.0); BILIRUBIN,TOTAL 1.1 mg/dL (0.2-1.0); CREATININE 1.1 mg/dL (0.5-1.5); POTASSIUM 4.2 mmol/L (3.5-5.1); TOTAL PROTEIN, SERUM 4.8 g/dL (6.0-8.3)
[2020-12-05] MEDS: DOCUSATE NA 100MG/10ML UDCUP PO SCH ×3 (06:16→22:00)
[2020-12-05] MEDS: INSULIN HUMULIN R 100 UNIT/ML 3ML SQ SCH ×4 (06:20→17:32)
[2020-12-05] MEDS: METOCLOPRAMIDE 10 MG/2 ML VIAL IVP SCH ×3 (06:47→16:58)
[2020-12-05] MEDS: MIDODRINE HCL 5 MG TABLET PO SCH ×3 (08:09→21:21)
[2020-12-05] MEDS: FONDAPARINUX SODIUM 2.5 MG/0.5 ML SQ SCH (08:10)
[2020-12-05] MEDS: BALSAM PERU/CASTOR OIL 60 GM TUBE TP SCH ×3 (08:10→21:24)
[2020-12-05] MEDS: POTASSIUM CHLORIDE 10% ELIXIR 20 MEQ/15 ML UDCUP NG SCH (08:11)
[2020-12-05] MEDS: 0.9% NACL 250ML 250 ML IV SCH (08:13)
[2020-12-05] MEDS: ARTIFICIAL TEARS 3.5 GM OINTMENT OD SCH ×4 (08:13→21:25)
[2020-12-05] MEDS: 0.9%NACL 100ML 100 ML IV SCH (08:18)
[2020-12-05] MEDS: METOPROLOL TARTRATE 25 MG TAB PEG SCH ×2 (08:19→21:21)
[2020-12-05] MEDS: FUROSEMIDE 40MG VIAL IV SCH ×2 (08:19→16:52)
[2020-12-05] MEDS: SOLU-MEDROL 40MG VIAL IVP SCH (08:19)
[2020-12-05] MEDS: ASPIRIN 81MG CHEW TAB PEG SCH (08:19)
[2020-12-05] MEDS ORDERED: VANCOMYCIN 500MG+NS 100ML IVPB IV SCH (09:00)
[2020-12-05] MEDS ORDERED: INSULIN GLARGINE 100 UNITS/ML 10 ML VIAL SQ SCH (09:30)
[2020-12-05] MEDS: PANTOPRAZOLE 40 MG/VIAL IVP SCH ×2 (10:02→21:24)
[2020-12-05 10:25] LABS: ABG OXYGEN SATURATION 94.7 % (95.0-99.0); ABG PCO2 42 mmHg (32-45)
[2020-12-05 15:09] LABS: HEMATOCRIT 24.3 % (36-48)
[2020-12-05] MEDS: CEFTRIAXONE 1G VIAL IVP SCH (16:51)
[2020-12-05] MEDS: PROPOFOL 1000 MG/100 ML 100 ML IV PRN (16:54)
[2020-12-05] MEDS: FENTANYL 2500MCG+NS 250ML IV SCH (16:58)
[2020-12-05] MEDS: DEXAMETHASONE SOD PHOSPHATE 4 MG/ML 1ML VIAL IVP SCH (21:21)
[2020-12-06] VITALS (72 sets, daily range): BP systolic 80–130; BP diastolic 51–86
[2020-12-06] MEDS: INSULIN HUMULIN R 100 UNIT/ML 3ML SQ SCH ×5 (00:22→23:54)
[2020-12-06] MEDS: FUROSEMIDE 40MG VIAL IV SCH ×3 (00:27→16:41)
[2020-12-06] MEDS: DOCUSATE NA 100MG/10ML UDCUP PO SCH ×3 (05:24→20:45)
[2020-12-06] MEDS: METOCLOPRAMIDE 10 MG/2 ML VIAL IVP SCH (06:32)
[2020-12-06 06:51] LABS: BASOPHILS % (AUTO) 0.6 % (0.0-5.0); EOSINOPHILS % (AUTO) 0.7 % (0.0-8.0); HEMATOCRIT 25.4 % (36-48); LYMPHOCYTES % (AUTO) 8.6 % (21.0-51.0); MEAN CORPUSCULAR HEMOGLOBIN 32.6 pg (27.0-33.0); MEAN CORPUSCULAR HGB CONC 29.9 g/dL (32.0-36.0); MONOCYTES % (AUTO) 1.4 % (3.0-13.0); NEUTROPHILS % (AUTO) 85.8 % (40.0-77.0); NUCLEATED RED BLOOD CELLS 14.7 % (0.0-0.19); PLATELET COUNT (AUTO) 137 K/uL (130-400); RED BLOOD CELL COUNT(AUTO) 2.33 MIL/uL (4.00-5.50); WHITE BLOOD COUNT (AUTO) 17.5 K/uL (4.8-10.8)
[2020-12-06] MEDS: IPRATROPIUM/ALBUTEROL SULFATE 3 ML SOLUTION IH SCH ×5 (07:10→23:16)
[2020-12-06 07:20] LABS: BAND NEUTROPHILS % (MANUAL) 3 % (0-2); LYMPHOCYTES % (MANUAL) 2 % (22-44); MAN.DIFF COMMENT-IMPRESSION MANUAL DIFFERENTIAL; MYELOCYTES % 1 % (0-0); PLATELET MORPHOLOGY COMMENT ADEQUATE; SEGMENTED NEUTROPHILS % 94 % (40-70)
[2020-12-06] MEDS: MIDODRINE HCL 5 MG TABLET PO SCH ×3 (07:36→20:44)
[2020-12-06] MEDS: METOPROLOL TARTRATE 25 MG TAB PEG SCH ×2 (07:36→20:09)
[2020-12-06] MEDS ORDERED: INSULIN GLARGINE 100 UNITS/ML 10 ML VIAL SQ SCH (08:00)
[2020-12-06 08:14] LABS: POTASSIUM 3.9 mmol/L (3.5-5.1)
[2020-12-06] MEDS: PANTOPRAZOLE 40 MG/VIAL IVP SCH ×2 (08:57→20:08)
[2020-12-06] MEDS: ASPIRIN 81MG CHEW TAB PEG SCH (08:57)
[2020-12-06] MEDS: BALSAM PERU/CASTOR OIL 60 GM TUBE TP SCH ×3 (08:58→20:34)
[2020-12-06] MEDS: ARTIFICIAL TEARS 3.5 GM OINTMENT OD SCH ×4 (08:58→20:45)
[2020-12-06] MEDS: DEXAMETHASONE SOD PHOSPHATE 4 MG/ML 1ML VIAL IVP SCH (08:58)
[2020-12-06] MEDS: 0.9%NACL 100ML 100 ML IV SCH (08:59)
[2020-12-06] MEDS: 0.9% NACL 250ML 250 ML IV SCH (08:59)
[2020-12-06] MEDS: POTASSIUM CHLORIDE 10% ELIXIR 20 MEQ/15 ML UDCUP NG SCH (09:03)
[2020-12-06] MEDS: PROPOFOL 1000 MG/100 ML 100 ML IV PRN (13:18)
[2020-12-06] MEDS: CEFTRIAXONE 1G VIAL IVP SCH (15:49)
[2020-12-06] MEDS: FENTANYL 2500MCG+NS 250ML IV SCH (20:57)
[2020-12-07] VITALS (31 sets, daily range): BP systolic 93–142; BP diastolic 56–88
[2020-12-07] MEDS: FUROSEMIDE 40MG VIAL IV SCH ×3 (01:59→16:47)
[2020-12-07] MEDS: IPRATROPIUM/ALBUTEROL SULFATE 3 ML SOLUTION IH SCH ×6 (03:39→23:35)
[2020-12-07] MEDS: DOCUSATE NA 100MG/10ML UDCUP PO SCH ×3 (05:20→21:32)
[2020-12-07] MEDS: INSULIN HUMULIN R 100 UNIT/ML 3ML SQ SCH ×3 (05:21→17:27)
[2020-12-07 06:27] LABS: BASOPHILS % (AUTO) 0.9 % (0.0-5.0); EOSINOPHILS % (AUTO) 0.1 % (0.0-8.0); HEMATOCRIT 22.2 % (36-48); LYMPHOCYTES % (AUTO) 5.2 % (21.0-51.0); MEAN CORPUSCULAR HEMOGLOBIN 37.4 pg (27.0-33.0); MEAN CORPUSCULAR HGB CONC 32.9 g/dL (32.0-36.0); MEAN CORPUSCULAR VOLUME 113.8 fL (79-99); MONOCYTES % (AUTO) 7.6 % (3.0-13.0); NEUTROPHILS % (AUTO) 83.4 % (40.0-77.0); NUCLEATED RED BLOOD CELLS 21.4 % (0.0-0.19); PLATELET COUNT (AUTO) 111 K/uL (130-400); RED BLOOD CELL COUNT(AUTO) 1.95 MIL/uL (4.00-5.50); RED CELL DISTRIBUTION WIDTH 25.8 % (11.0-15.5); WHITE BLOOD COUNT (AUTO) 15.7 K/uL (4.8-10.8)
[2020-12-07 06:40] LABS: ALBUMIN 2.5 g/dL (3.5-5.0); BILIRUBIN,TOTAL 0.9 mg/dL (0.2-1.0); CREATININE 1.2 mg/dL (0.5-1.5); CRP QUANTITATIVE 15.3 mg/L (0.00-9.0); POTASSIUM 4.2 mmol/L (3.5-5.1)
[2020-12-07 07:14] LABS: ABG BASE EXCESS 4.1 mmol/L (-2.0-3.0); ABG HCO3 27.9 mmol/L (21.0-28.0); ABG OXYGEN SATURATION 96.6 % (95.0-99.0); ABG PCO2 38 mmHg (32-45)
[2020-12-07] MEDS: 0.9% NACL 250ML 250 ML IV SCH (09:00)
[2020-12-07] MEDS: METOPROLOL TARTRATE 25 MG TAB PEG SCH ×2 (09:00→22:00)
[2020-12-07] MEDS: 0.9%NACL 100ML 100 ML IV SCH (09:00)
[2020-12-07] MEDS: MIDODRINE HCL 5 MG TABLET PO SCH ×3 (09:30→21:29)
[2020-12-07] MEDS: INSULIN GLARGINE 100 UNITS/ML 10 ML VIAL SQ SCH (09:30)
[2020-12-07] MEDS: PANTOPRAZOLE 40 MG/VIAL IVP SCH ×2 (09:30→21:29)
[2020-12-07] MEDS: ASPIRIN 81MG CHEW TAB PEG SCH (09:31)
[2020-12-07] MEDS: POTASSIUM CHLORIDE 10% ELIXIR 20 MEQ/15 ML UDCUP NG SCH (09:32)
[2020-12-07] MEDS: ARTIFICIAL TEARS 3.5 GM OINTMENT OD SCH ×4 (09:33→21:29)
[2020-12-07] MEDS: DEXAMETHASONE SOD PHOSPHATE 4 MG/ML 1ML VIAL IVP SCH (09:33)
[2020-12-07] MEDS: BALSAM PERU/CASTOR OIL 60 GM TUBE TP SCH ×3 (09:34→21:29)
[2020-12-07] MEDS: CEFTRIAXONE 1G VIAL IVP SCH (16:46)
[2020-12-07] MEDS: FENTANYL 2500MCG+NS 250ML IV SCH (22:40)
[2020-12-07] MEDS: PROPOFOL 1000 MG/100 ML 100 ML IV PRN (22:41)
[2020-12-08] VITALS (24 sets, daily range): BP systolic 88–132; BP diastolic 54–86
[2020-12-08] MEDS: INSULIN HUMULIN R 100 UNIT/ML 3ML SQ SCH ×6 (01:00→18:05)
[2020-12-08] MEDS: FUROSEMIDE 40MG VIAL IV SCH ×2 (01:37→08:46)
[2020-12-08] MEDS: IPRATROPIUM/ALBUTEROL SULFATE 3 ML SOLUTION IH SCH ×6 (03:25→18:58)
[2020-12-08] MEDS: DOCUSATE NA 100MG/10ML UDCUP PO SCH (06:00)
[2020-12-08 06:43] LABS: ABG HCO3 29.7 mmol/L (21.0-28.0); ABG OXYGEN SATURATION 91.6 % (95.0-99.0); ABG PCO2 45 mmHg (32-45)
[2020-12-08 07:18] LABS: BASOPHILS % (AUTO) 0.1 % (0.0-5.0); EOSINOPHILS % (AUTO) 0.4 % (0.0-8.0); HEMATOCRIT 24.5 % (36-48); LYMPHOCYTES % (AUTO) 8.6 % (21.0-51.0); MEAN CORPUSCULAR HEMOGLOBIN 33.2 pg (27.0-33.0); MEAN CORPUSCULAR HGB CONC 30.2 g/dL (32.0-36.0); MEAN CORPUSCULAR VOLUME 109.9 fL (79-99); MONOCYTES % (AUTO) 6.7 % (3.0-13.0); NEUTROPHILS % (AUTO) 81.9 % (40.0-77.0); NUCLEATED RED BLOOD CELLS 16.9 % (0.0-0.19); PLATELET COUNT (AUTO) 93 K/uL (130-400); RED BLOOD CELL COUNT(AUTO) 2.23 MIL/uL (4.00-5.50); WHITE BLOOD COUNT (AUTO) 16.7 K/uL (4.8-10.8)
[2020-12-08 07:32] LABS: ALBUMIN 2.5 g/dL (3.5-5.0); CREATININE 1.2 mg/dL (0.5-1.5); CRP QUANTITATIVE 16.6 mg/L (0.00-9.0); TOTAL PROTEIN, SERUM 5.1 g/dL (6.0-8.3)
[2020-12-08 07:59] LABS: LYMPHOCYTES % (MANUAL) 9 % (22-44); MONOCYTES % (MANUAL) 3 % (2-9); SEGMENTED NEUTROPHILS % 88 % (40-70)
[2020-12-08 08:06] LABS: MAN.DIFF COMMENT-IMPRESSION MANUAL DIFFERENTIAL
[2020-12-08 08:14] LABS: PLATELET MORPHOLOGY COMMENT ADEQUATE
[2020-12-08] MEDS: INSULIN GLARGINE 100 UNITS/ML 10 ML VIAL SQ SCH (08:45)
[2020-12-08] MEDS: DEXAMETHASONE SOD PHOSPHATE 4 MG/ML 1ML VIAL IVP SCH (08:46)
[2020-12-08] MEDS: ASPIRIN 81MG CHEW TAB PEG SCH (08:46)
[2020-12-08] MEDS: POTASSIUM CHLORIDE 10% ELIXIR 20 MEQ/15 ML UDCUP NG SCH (08:47)
[2020-12-08] MEDS: MIDODRINE HCL 5 MG TABLET PO SCH ×3 (08:47→20:39)
[2020-12-08] MEDS: PANTOPRAZOLE 40 MG/VIAL IVP SCH ×2 (08:47→20:38)
[2020-12-08] MEDS: BALSAM PERU/CASTOR OIL 60 GM TUBE TP SCH ×3 (08:48→20:39)
[2020-12-08] MEDS: ARTIFICIAL TEARS 3.5 GM OINTMENT OD SCH ×4 (08:48→20:38)
[2020-12-08] MEDS: METOPROLOL TARTRATE 25 MG TAB PEG SCH ×2 (08:49→20:39)
[2020-12-08] MEDS: 0.9%NACL 100ML 100 ML IV SCH (09:00)
[2020-12-08] MEDS: 0.9% NACL 250ML 250 ML IV SCH (09:00)
[2020-12-08] MEDS ORDERED: INSULIN GLARGINE 100 UNITS/ML 10 ML VIAL SQ SCH (09:30)
[2020-12-08] MEDS: PROPOFOL 1000 MG/100 ML 100 ML IV PRN (12:25)
[2020-12-08] MEDS: CEFTRIAXONE 1G VIAL IVP SCH (17:15)
[2020-12-08] MEDS: FENTANYL 2500MCG+NS 250ML IV SCH (21:32)
[2020-12-09] VITALS (24 sets, daily range): BP systolic 93–116; BP diastolic 61–81
[2020-12-09] MEDS: INSULIN HUMULIN R 100 UNIT/ML 3ML SQ SCH ×7 (00:10→18:13)
[2020-12-09] MEDS: IPRATROPIUM/ALBUTEROL SULFATE 3 ML SOLUTION IH SCH ×4 (01:08→18:42)
[2020-12-09 04:17] LABS: ABG BASE EXCESS 7.4 mmol/L (-2.0-3.0); ABG HCO3 32.1 mmol/L (21.0-28.0); ABG OXYGEN SATURATION 93.8 % (95.0-99.0); ABG PCO2 47 mmHg (32-45)
[2020-12-09 06:14] LABS: ALBUMIN 2.5 g/dL (3.5-5.0); BILIRUBIN,TOTAL 0.9 mg/dL (0.2-1.0); POTASSIUM 3.9 mmol/L (3.5-5.1); TOTAL PROTEIN, SERUM 4.8 g/dL (6.0-8.3)
[2020-12-09] MEDS: INSULIN GLARGINE 100 UNITS/ML 10 ML VIAL SQ SCH (08:00)
[2020-12-09] MEDS: 0.9%NACL 100ML 100 ML IV SCH (09:00)
[2020-12-09] MEDS: METOPROLOL TARTRATE 25 MG TAB PEG SCH ×2 (09:00→20:38)
[2020-12-09] MEDS: 0.9% NACL 250ML 250 ML IV SCH (09:00)
[2020-12-09] MEDS: DEXAMETHASONE SOD PHOSPHATE 4 MG/ML 1ML VIAL IVP SCH (09:21)
[2020-12-09] MEDS: PANTOPRAZOLE 40 MG/VIAL IVP SCH ×2 (09:21→20:37)
[2020-12-09] MEDS: ARTIFICIAL TEARS 3.5 GM OINTMENT OD SCH ×4 (09:22→20:37)
[2020-12-09] MEDS: ASPIRIN 81MG CHEW TAB PEG SCH (09:22)
[2020-12-09] MEDS: POTASSIUM CHLORIDE 10% ELIXIR 20 MEQ/15 ML UDCUP NG SCH (09:22)
[2020-12-09] MEDS: BALSAM PERU/CASTOR OIL 60 GM TUBE TP SCH ×3 (09:23→20:38)
[2020-12-09] MEDS: MIDODRINE HCL 5 MG TABLET PO SCH ×3 (09:23→20:38)
[2020-12-09] MEDS: CEFTRIAXONE 1G VIAL IVP SCH (15:02)
[2020-12-09] MEDS: PROPOFOL 1000 MG/100 ML 100 ML IV PRN (16:20)
[2020-12-09] MEDS: FENTANYL 2500MCG+NS 250ML IV SCH (16:22)
[2020-12-10] VITALS (22 sets, daily range): BP systolic 93–137; BP diastolic 56–86
[2020-12-10] MEDS: INSULIN HUMULIN R 100 UNIT/ML 3ML SQ SCH ×7 (00:46→17:32)
[2020-12-10 04:23] LABS: ALBUMIN 2.2 g/dL (3.5-5.0); BILIRUBIN,TOTAL 0.8 mg/dL (0.2-1.0); CREATININE 0.9 mg/dL (0.5-1.5); POTASSIUM 3.7 mmol/L (3.5-5.1); TOTAL PROTEIN, SERUM 4.6 g/dL (6.0-8.3)
[2020-12-10 04:25] LABS: ABG BASE EXCESS 10.1 mmol/L (-2.0-3.0); ABG HCO3 35.2 mmol/L (21.0-28.0); ABG OXYGEN SATURATION 93.7 % (95.0-99.0); ABG PCO2 52 mmHg (32-45)
[2020-12-10] MEDS: PROPOFOL 1000 MG/100 ML 100 ML IV PRN ×2 (05:30→19:32)
[2020-12-10 05:35] LABS: BASOPHILS % (AUTO) 0.5 % (0.0-5.0); EOSINOPHILS % (AUTO) 0.7 % (0.0-8.0); HEMATOCRIT 23.7 % (36-48); LYMPHOCYTES % (AUTO) 10.6 % (21.0-51.0); MEAN CORPUSCULAR VOLUME 113.4 fL (79-99); MONOCYTES % (AUTO) 2.3 % (3.0-13.0); NEUTROPHILS % (AUTO) 83.2 % (40.0-77.0); NUCLEATED RED BLOOD CELLS 12.8 % (0.0-0.19); RED BLOOD CELL COUNT(AUTO) 2.09 MIL/uL (4.00-5.50); RED CELL DISTRIBUTION WIDTH 24.6 % (11.0-15.5); WHITE BLOOD COUNT (AUTO) 10.4 K/uL (4.8-10.8)
[2020-12-10 05:50] LABS: PLATELET COUNT (AUTO) 60 K/uL (130-400)
[2020-12-10] MEDS: IPRATROPIUM/ALBUTEROL SULFATE 3 ML SOLUTION IH SCH ×4 (06:00→18:44)
[2020-12-10 06:32] LABS: BAND NEUTROPHILS % (MANUAL) 20 % (0-2); LYMPHOCYTES % (MANUAL) 1 % (22-44); MAN.DIFF COMMENT-IMPRESSION MANUAL DIFFERENTIAL; MONOCYTES % (MANUAL) 3 % (2-9); PLATELET MORPHOLOGY COMMENT DECREASED; REACTIVE LYMPHOCYTES 1 % (0-0); SEGMENTED NEUTROPHILS % 75 % (40-70)
[2020-12-10] MEDS: METOPROLOL TARTRATE 25 MG TAB PEG SCH ×2 (09:00→20:47)
[2020-12-10] MEDS: 0.9% NACL 250ML 250 ML IV SCH (09:00)
[2020-12-10] MEDS: 0.9%NACL 100ML 100 ML IV SCH (09:00)
[2020-12-10] MEDS: PANTOPRAZOLE 40 MG/VIAL IVP SCH ×2 (09:47→20:47)
[2020-12-10] MEDS: MIDODRINE HCL 5 MG TABLET PO SCH ×3 (09:48→20:47)
[2020-12-10] MEDS: ASPIRIN 81MG CHEW TAB PEG SCH (09:48)
[2020-12-10] MEDS: ARTIFICIAL TEARS 3.5 GM OINTMENT OD SCH ×4 (09:48→20:47)
[2020-12-10] MEDS: DEXAMETHASONE SOD PHOSPHATE 4 MG/ML 1ML VIAL IVP SCH (09:48)
[2020-12-10] MEDS: BALSAM PERU/CASTOR OIL 60 GM TUBE TP SCH ×3 (09:49→20:47)
[2020-12-10] MEDS: INSULIN GLARGINE 100 UNITS/ML 10 ML VIAL SQ SCH (09:50)
[2020-12-10] MEDS: CEFTRIAXONE 1G VIAL IVP SCH (17:01)
[2020-12-11] VITALS (49 sets, daily range): BP systolic 75–130; BP diastolic 35–85
[2020-12-11] MEDS: IPRATROPIUM/ALBUTEROL SULFATE 3 ML SOLUTION IH SCH ×3 (00:32→12:23)
[2020-12-11] MEDS: INSULIN HUMULIN R 100 UNIT/ML 3ML SQ SCH ×8 (00:42→23:38)
[2020-12-11] MEDS ORDERED: METOPROLOL TARTRATE 1 MG/ML 5ML VIAL IV ONE ×4 (03:54→04:30)
[2020-12-11 06:29] LABS: BASOPHILS % (AUTO) 0.4 % (0.0-5.0); EOSINOPHILS % (AUTO) 0.1 % (0.0-8.0); MEAN CORPUSCULAR HEMOGLOBIN 33.5 pg (27.0-33.0); MEAN CORPUSCULAR HGB CONC 29.2 g/dL (32.0-36.0); MEAN CORPUSCULAR VOLUME 114.7 fL (79-99); MONOCYTES % (AUTO) 3.4 % (3.0-13.0); NEUTROPHILS % (AUTO) 84.3 % (40.0-77.0); NUCLEATED RED BLOOD CELLS 11.9 % (0.0-0.19); PLATELET COUNT (AUTO) 65 K/uL (130-400); RED BLOOD CELL COUNT(AUTO) 2.18 MIL/uL (4.00-5.50); RED CELL DISTRIBUTION WIDTH 25.2 % (11.0-15.5); WHITE BLOOD COUNT (AUTO) 10.7 K/uL (4.8-10.8)
[2020-12-11 07:08] LABS: ABG BASE EXCESS 5.1 mmol/L (-2.0-3.0); ABG HCO3 29.1 mmol/L (21.0-28.0); ABG OXYGEN SATURATION 89.2 % (95.0-99.0); ABG PCO2 40 mmHg (32-45)
[2020-12-11 07:18] LABS: ALBUMIN 2.5 g/dL (3.5-5.0); CREATININE 0.8 mg/dL (0.5-1.5); CRP QUANTITATIVE 62.4 mg/L (0.00-9.0); POTASSIUM 3.5 mmol/L (3.5-5.1); TOTAL PROTEIN, SERUM 4.8 g/dL (6.0-8.3)
[2020-12-11] MEDS: PROPOFOL 1000 MG/100 ML 100 ML IV PRN (07:49)
[2020-12-11] MEDS ORDERED: PHENYLEPHRINE HCL 100 MG in 0.9% NACL 250ML 250 ML IV SCH (08:30)
[2020-12-11] MEDS: PANTOPRAZOLE 40 MG/VIAL IVP SCH ×2 (08:55→20:50)
[2020-12-11] MEDS: METOPROLOL TARTRATE 25 MG TAB PEG SCH ×2 (08:55→20:24)
[2020-12-11] MEDS: ASPIRIN 81MG CHEW TAB PEG SCH ×2 (08:55→09:57)
[2020-12-11] MEDS: MIDODRINE HCL 5 MG TABLET PO SCH ×3 (08:55→21:25)
[2020-12-11] MEDS: 0.9%NACL 100ML 100 ML IV SCH (08:56)
[2020-12-11] MEDS: 0.9% NACL 250ML 250 ML IV SCH (08:56)
[2020-12-11] MEDS: ARTIFICIAL TEARS 3.5 GM OINTMENT OD SCH ×4 (08:56→20:51)
[2020-12-11] MEDS: INSULIN GLARGINE 100 UNITS/ML 10 ML VIAL SQ SCH (08:57)
[2020-12-11] MEDS: BALSAM PERU/CASTOR OIL 60 GM TUBE TP SCH ×3 (08:58→20:51)
[2020-12-11] MEDS: DEXAMETHASONE SOD PHOSPHATE 4 MG/ML 1ML VIAL IVP SCH (08:59)
[2020-12-11] MEDS ORDERED: PHENYLEPHRINE HCL 50 MG in 0.9% NACL 250ML 250 ML IV PRN (09:00)
[2020-12-11 09:15] LABS: BAND NEUTROPHILS % (MANUAL) 6 % (0-2); LYMPHOCYTES % (MANUAL) 4 % (22-44); MONOCYTES % (MANUAL) 3 % (2-9); SEGMENTED NEUTROPHILS % 87 % (40-70)
[2020-12-11 09:16] LABS: PLATELET MORPHOLOGY COMMENT DECREASED
[2020-12-11] MEDS ORDERED: IPRATROPIUM 0.5 MG/2.5 ML INH IH PRN (13:00)
[2020-12-11] MEDS ORDERED: COMPOUND IV REFRIGERATED 1 EACH IVSOLN MISC PRN (13:00)
[2020-12-11] MEDS ORDERED: VANCOMYCIN PROTOCOL PER PHARMACY IV SCH (13:00)
[2020-12-11] MEDS: MEROPENEM 1 GM VIAL IVP SCH ×2 (13:12→20:50)
[2020-12-11] MEDS ORDERED: FENTANYL 2500MCG+NS 250ML 250 ML IV ONE (14:06)
[2020-12-11] MEDS: VANCOMYCIN 1.25GM/NS 250ML IVPB SCH ×2 (14:39)
[2020-12-11] MEDS ORDERED: FENTANYL 2500MCG+NS 250ML 250 ML IV SCH (16:00)
[2020-12-12] VITALS (88 sets, daily range): BP systolic 80–128; BP diastolic 39–77
[2020-12-12 00:38] LABS: APPEARANCE,URINE Turbid (CLEAR); BILIRUBIN,URINE Negative (NEGATIVE); COLOR,URINE Yellow (YELLOW); GLUCOSE, URINE (UA) Negative (NEGATIVE); KETONES,URINE Negative (NEGATIVE); LEUKOCYTE ESTERASE ,URINE Moderate (NEGATIVE); NITRATE,URINE Negative (NEGATIVE); OCCULT BLOOD,URINE Large (NEGATIVE); PROTEIN,URINE POS 1+ mg/dL (NEGATIVE)
[2020-12-12 00:53] LABS: YEAST,URINE BUDDING Many /HPF (None Seen)
[2020-12-12 00:55] LABS: BACTERIA,URINE Moderate /HPF (None Seen); SQUAMOUS EPITHELIAL CELL,UR Few /HPF (0-2)
[2020-12-12] MEDS: VANCOMYCIN 1.25GM/NS 250ML IVPB SCH ×4 (01:36→12:55)
[2020-12-12] MEDS: MEROPENEM 1 GM VIAL IVP SCH ×3 (05:40→20:49)
[2020-12-12 05:58] LABS: BILIRUBIN,TOTAL 0.9 mg/dL (0.2-1.0); CREATININE 0.7 mg/dL (0.5-1.5); POTASSIUM 3.2 mmol/L (3.5-5.1); TOTAL PROTEIN, SERUM 4.5 g/dL (6.0-8.3)
[2020-12-12 05:59] LABS: BASOPHILS % (AUTO) 0.3 % (0.0-5.0); EOSINOPHILS % (AUTO) 0.8 % (0.0-8.0); LYMPHOCYTES % (AUTO) 9.8 % (21.0-51.0); MEAN CORPUSCULAR HEMOGLOBIN 37.6 pg (27.0-33.0); MEAN CORPUSCULAR HGB CONC 32.4 g/dL (32.0-36.0); MONOCYTES % (AUTO) 3.6 % (3.0-13.0); NUCLEATED RED BLOOD CELLS 15.3 % (0.0-0.19); PLATELET COUNT (AUTO) 56 K/uL (130-400); RED BLOOD CELL COUNT(AUTO) 1.81 MIL/uL (4.00-5.50); RED CELL DISTRIBUTION WIDTH 27.2 % (11.0-15.5); WHITE BLOOD COUNT (AUTO) 7.7 K/uL (4.8-10.8)
[2020-12-12] MEDS: INSULIN HUMULIN R 100 UNIT/ML 3ML SQ SCH ×6 (06:00→17:34)
[2020-12-12] MEDS: POTASSIUM CHLORIDE 10% ELIXIR 20 MEQ/15 ML UDCUP PO PRN ×2 (06:33→10:15)
[2020-12-12 06:47] LABS: ABG BASE EXCESS 7.7 mmol/L (-2.0-3.0); ABG HCO3 32.2 mmol/L (21.0-28.0); ABG PCO2 46 mmHg (32-45)
[2020-12-12] MEDS: INSULIN GLARGINE 100 UNITS/ML 10 ML VIAL SQ SCH (08:00)
[2020-12-12] MEDS: 0.9% NACL 250ML 250 ML IV SCH (09:00)
[2020-12-12] MEDS: METOPROLOL TARTRATE 25 MG TAB PEG SCH ×2 (09:00→20:45)
[2020-12-12] MEDS: 0.9%NACL 100ML 100 ML IV SCH (09:00)
[2020-12-12 10:00] LABS: INR 1.05 (0.85-1.15); PROTHROMBIN TIME 11.4 SEC (9.6-11.6)
[2020-12-12] MEDS ORDERED: AMINOCAPROIC ACID 5,000MG VIAL 1,000 MG in 0.9%NACL 50ML 50 ML IV SCH (10:00)
[2020-12-12] MEDS ORDERED: DEXMEDETOMIDINE HCL 200 MCG in 0.9%NACL 50ML 50 ML IV SCH (10:00)
[2020-12-12] MEDS ORDERED: PHARMACY COMMUNICATION MISC SCH (10:00)
[2020-12-12 10:01] LABS: PARTIAL THROMBOPLASTIN TIME 23.1 SEC (26.3-35.5)
[2020-12-12] MEDS: MIDODRINE HCL 5 MG TABLET PO SCH ×3 (10:15→20:49)
[2020-12-12] MEDS: PANTOPRAZOLE 40 MG/VIAL IVP SCH ×2 (10:15→20:49)
[2020-12-12] MEDS: DEXAMETHASONE SOD PHOSPHATE 4 MG/ML 1ML VIAL IVP SCH (10:15)
[2020-12-12] MEDS: BALSAM PERU/CASTOR OIL 60 GM TUBE TP SCH ×3 (10:16→20:49)
[2020-12-12] MEDS: DEXTROSE 5%-WATER 1,000 ML IV SCH ×2 (10:16→20:49)
[2020-12-12] MEDS: ARTIFICIAL TEARS 3.5 GM OINTMENT OD SCH ×4 (10:16→20:54)
[2020-12-12] MEDS ORDERED: DEXMEDETOMIDINE 400MCG/NS100ML IV ONE (10:53)
[2020-12-12] MEDS: VASOPRESSIN 40 UNITS in 0.9%NACL 50ML 40 ML IV SCH (12:17)
[2020-12-12 12:51] LABS: ABG BASE EXCESS 5.4 mmol/L (-2.0-3.0); ABG HCO3 29.4 mmol/L (21.0-28.0); ABG PCO2 41 mmHg (32-45)
[2020-12-12] MEDS ORDERED: FENTANYL CITRATE PF 50 MCG/1 ML 2ML VIAL IVP PRN (13:00)
[2020-12-12] MEDS: NOREPINEPHRIN 4MG/NS 250ML 250 ML IV SCH (14:41)
[2020-12-12] MEDS: DEXMEDETOMIDINE 400MCG/NS100ML IV SCH ×2 (16:24→18:50)
[2020-12-12] MEDS ORDERED: FUROSEMIDE 20MG VIAL IV SCH (17:15)
[2020-12-12 19:17] LABS: HEMATOCRIT 22.7 % (36-48); MEAN CORPUSCULAR HEMOGLOBIN 32.3 pg (27.0-33.0); MEAN CORPUSCULAR HGB CONC 31.3 g/dL (32.0-36.0); MEAN CORPUSCULAR VOLUME 103.2 fL (79-99); NUCLEATED RED BLOOD CELLS 6.7 % (0.0-0.19); PLATELET COUNT (AUTO) 75 K/uL (130-400); WHITE BLOOD COUNT (AUTO) 7.4 K/uL (4.8-10.8)
[2020-12-12 19:55] LABS: BAND NEUTROPHILS % (MANUAL) 19 % (0-2); EOSINOPHILS % (MANUAL) 1 % (1-6); MONOCYTES % (MANUAL) 3 % (2-9); SEGMENTED NEUTROPHILS % 77 % (40-70)
[2020-12-12 19:56] LABS: MAN.DIFF COMMENT-IMPRESSION MANUAL DIFFERENTIAL
[2020-12-12 19:57] LABS: PLATELET MORPHOLOGY COMMENT DECREASED
[2020-12-13] VITALS (69 sets, daily range): BP systolic 41–158; BP diastolic 25–90
[2020-12-13] MEDS: VANCOMYCIN 1.25GM/NS 250ML IVPB SCH ×6 (01:00→23:15)
[2020-12-13] MEDS: VASOPRESSIN 40 UNITS in 0.9%NACL 50ML 40 ML IV SCH (01:04)
[2020-12-13] MEDS: DEXMEDETOMIDINE 400MCG/NS100ML IV SCH ×4 (01:06→23:59)
[2020-12-13 01:49] LABS: BASOPHILS % (AUTO) 0.3 % (0.0-5.0); EOSINOPHILS % (AUTO) 0.1 % (0.0-8.0); HEMATOCRIT 22.5 % (36-48); LYMPHOCYTES % (AUTO) 9.7 % (21.0-51.0); MEAN CORPUSCULAR HEMOGLOBIN 34.7 pg (27.0-33.0); MEAN CORPUSCULAR HGB CONC 32.9 g/dL (32.0-36.0); MEAN CORPUSCULAR VOLUME 105.6 fL (79-99); MONOCYTES % (AUTO) 1.4 % (3.0-13.0); NUCLEATED RED BLOOD CELLS 5.5 % (0.0-0.19); PLATELET COUNT (AUTO) 67 K/uL (130-400); RED BLOOD CELL COUNT(AUTO) 2.13 MIL/uL (4.00-5.50); WHITE BLOOD COUNT (AUTO) 7.2 K/uL (4.8-10.8)
[2020-12-13 02:01] LABS: POTASSIUM 3.8 mmol/L (3.5-5.1)
[2020-12-13 02:02] LABS: CREATININE 0.8 mg/dL (0.5-1.5); TOTAL PROTEIN, SERUM 4.6 g/dL (6.0-8.3)
[2020-12-13 02:03] LABS: MAGNESIUM 1.9 mg/dL (1.80-2.40)
[2020-12-13] MEDS: POTASSIUM CHLORIDE 10% ELIXIR 20 MEQ/15 ML UDCUP PO PRN (02:31)
[2020-12-13] MEDS: MEROPENEM 1 GM VIAL IVP SCH ×3 (04:30→21:28)
[2020-12-13] MEDS: INSULIN HUMULIN R 100 UNIT/ML 3ML SQ SCH ×7 (05:51→17:38)
[2020-12-13] MEDS: INSULIN GLARGINE 100 UNITS/ML 10 ML VIAL SQ SCH (07:57)
[2020-12-13] MEDS: 0.9% NACL 250ML 250 ML IV SCH (07:57)
[2020-12-13] MEDS: 0.9%NACL 100ML 100 ML IV SCH (07:57)
[2020-12-13] MEDS: METOPROLOL TARTRATE 25 MG TAB PEG SCH (07:58)
[2020-12-13] MEDS: MIDODRINE HCL 5 MG TABLET PO SCH (08:23)
[2020-12-13] MEDS: DEXAMETHASONE SOD PHOSPHATE 4 MG/ML 1ML VIAL IVP SCH (08:23)
[2020-12-13] MEDS: ARTIFICIAL TEARS 3.5 GM OINTMENT OD SCH ×4 (08:23→21:13)
[2020-12-13] MEDS: PANTOPRAZOLE 40 MG/VIAL IVP SCH ×2 (08:23→21:28)
[2020-12-13] MEDS: BALSAM PERU/CASTOR OIL 60 GM TUBE TP SCH ×3 (08:24→21:13)
[2020-12-13] MEDS ORDERED: 0.9% NACL 500ML IV.SOLN 500 ML IV ONE (09:07)
[2020-12-13] MEDS ORDERED: VECURONIUM 10MG/10ML IV ONE (09:09)
[2020-12-13] MEDS: CISATRACURIUM BESYLATE 100 MG in 0.9%NACL 100ML 90 ML IV PRN (09:19)
[2020-12-13] MEDS ORDERED: PHARMACY COMMUNICATION MISC SCH (09:30)
[2020-12-13] MEDS ORDERED: VECURONIUM 10MG/10ML IV SCH (09:30)
[2020-12-13] MEDS ORDERED: LIDOCAINE HCL 1% 20 ML VIAL ONE (10:01)
[2020-12-13] MEDS ORDERED: FENTANYL 2500MCG+NS 250ML 250 ML IV ONE (10:07)
[2020-12-13] MEDS ORDERED: FENTANYL CITRATE PF 0.05 MG/ML 1,000 MCG in 0.9%NACL 100ML 100 ML IV PRN (11:00)
[2020-12-13] MEDS ORDERED: MIDAZOLAM 100MG-0.9% NS 100ML 50 ML IV PRN (11:00)
[2020-12-13] MEDS: DEXTROSE 5%-WATER 1,000 ML IV SCH ×2 (11:49→23:59)
[2020-12-14] VITALS (58 sets, daily range): BP systolic 88–154; BP diastolic 50–136
[2020-12-14] MEDS: INSULIN HUMULIN R 100 UNIT/ML 3ML SQ SCH ×7 (00:01→18:00)
[2020-12-14] MEDS: VASOPRESSIN 40 UNITS in 0.9%NACL 50ML 40 ML IV SCH (02:44)
[2020-12-14 05:17] LABS: ABG BASE EXCESS 0.3 mmol/L (-2.0-3.0); ABG HCO3 27.9 mmol/L (21.0-28.0); ABG OXYGEN SATURATION 81.2 % (95.0-99.0); ABG PCO2 64 mmHg (32-45)
[2020-12-14 05:33] LABS: BASOPHILS % (AUTO) 0.5 % (0.0-5.0); HEMATOCRIT 22.4 % (36-48); LYMPHOCYTES % (AUTO) 13.7 % (21.0-51.0); MEAN CORPUSCULAR HEMOGLOBIN 33.3 pg (27.0-33.0); MEAN CORPUSCULAR HGB CONC 30.8 g/dL (32.0-36.0); MEAN CORPUSCULAR VOLUME 108.2 fL (79-99); MONOCYTES % (AUTO) 2.3 % (3.0-13.0); NEUTROPHILS % (AUTO) 80.6 % (40.0-77.0); NUCLEATED RED BLOOD CELLS 13.1 % (0.0-0.19); PLATELET COUNT (AUTO) 59 K/uL (130-400); RED BLOOD CELL COUNT(AUTO) 2.07 MIL/uL (4.00-5.50); RED CELL DISTRIBUTION WIDTH 26.8 % (11.0-15.5); WHITE BLOOD COUNT (AUTO) 8.4 K/uL (4.8-10.8)
[2020-12-14 05:51] LABS: ALBUMIN 1.9 g/dL (3.5-5.0); BILIRUBIN,TOTAL 0.9 mg/dL (0.2-1.0); CREATININE 0.8 mg/dL (0.5-1.5); POTASSIUM 4.8 mmol/L (3.5-5.1); TOTAL PROTEIN, SERUM 4.5 g/dL (6.0-8.3)
[2020-12-14] MEDS: MEROPENEM 1 GM VIAL IVP SCH ×3 (05:56→20:32)
[2020-12-14 05:57] LABS: BAND NEUTROPHILS % (MANUAL) 7 % (0-2); LYMPHOCYTES % (MANUAL) 8 % (22-44); MAN.DIFF COMMENT-IMPRESSION MANUAL DIFFERENTIAL; MONOCYTES % (MANUAL) 7 % (2-9); PLATELET MORPHOLOGY COMMENT DECREASED; REACTIVE LYMPHOCYTES 1 % (0-0); SEGMENTED NEUTROPHILS % 77 % (40-70)
[2020-12-14] MEDS: DEXMEDETOMIDINE 400MCG/NS100ML IV SCH (05:58)
[2020-12-14 07:43] LABS: HEMATOCRIT 23.2 % (36-48)
[2020-12-14] MEDS: INSULIN GLARGINE 100 UNITS/ML 10 ML VIAL SQ SCH (07:52)
[2020-12-14] MEDS: DEXAMETHASONE SOD PHOSPHATE 4 MG/ML 1ML VIAL IVP SCH (07:54)
[2020-12-14] MEDS: PANTOPRAZOLE 40 MG/VIAL IVP SCH ×2 (07:55→20:31)
[2020-12-14] MEDS: CISATRACURIUM BESYLATE 100 MG in 0.9%NACL 100ML 90 ML IV PRN (07:57)
[2020-12-14] MEDS: FENTANYL 2500MCG+NS 250ML 250 ML IV SCH (08:00)
[2020-12-14] MEDS: BALSAM PERU/CASTOR OIL 60 GM TUBE TP SCH ×3 (08:12→20:33)
[2020-12-14] MEDS: ARTIFICIAL TEARS 3.5 GM OINTMENT OD SCH ×4 (08:12→20:33)
[2020-12-14] MEDS: 0.9%NACL 100ML 100 ML IV SCH (09:00)
[2020-12-14] MEDS: 0.9% NACL 250ML 250 ML IV SCH ×2 (09:00→20:32)
[2020-12-14] MEDS ORDERED: MIDAZOLAM 100MG-0.9% NS 100ML 50 ML IV PRN (09:30)
[2020-12-14] MEDS ORDERED: LIDOCAINE HCL 400MG/20ML VIAL ONE (09:42)
[2020-12-14 10:08] LABS: ABG BASE EXCESS 3.6 mmol/L (-2.0-3.0); ABG HCO3 29.4 mmol/L (21.0-28.0); ABG OXYGEN SATURATION 75.7 % (95.0-99.0); ABG PCO2 58 mmHg (32-45)
[2020-12-14] MEDS: MIDAZOLAM 100MG-0.9% NS 100ML 100 ML IV SCH (10:22)
[2020-12-14] MEDS: VANCOMYCIN 1.25GM/NS 250ML IVPB SCH ×2 (13:20)
[2020-12-14] MEDS: VANCOMYCIN KIT 1 GM/250 ML IV.KIT IV SCH (20:32)
[2020-12-15] VITALS (44 sets, daily range): BP systolic 107–146; BP diastolic 63–92
[2020-12-15 04:23] LABS: BASOPHILS % (AUTO) 0.7 % (0.0-5.0); HEMATOCRIT 26.6 % (36-48); LYMPHOCYTES % (AUTO) 9.5 % (21.0-51.0); MEAN CORPUSCULAR HEMOGLOBIN 32.8 pg (27.0-33.0); MEAN CORPUSCULAR HGB CONC 32.7 g/dL (32.0-36.0); MEAN CORPUSCULAR VOLUME 100.4 fL (79-99); MONOCYTES % (AUTO) 2.5 % (3.0-13.0); NEUTROPHILS % (AUTO) 84.1 % (40.0-77.0); NUCLEATED RED BLOOD CELLS 29.7 % (0.0-0.19); PLATELET COUNT (AUTO) 42 K/uL (130-400); RED BLOOD CELL COUNT(AUTO) 2.65 MIL/uL (4.00-5.50); RED CELL DISTRIBUTION WIDTH 25.1 % (11.0-15.5); WHITE BLOOD COUNT (AUTO) 4.4 K/uL (4.8-10.8)
[2020-12-15 04:40] LABS: CREATININE 0.6 mg/dL (0.5-1.5); POTASSIUM 4.1 mmol/L (3.5-5.1)
[2020-12-15] MEDS: MEROPENEM 1 GM VIAL IVP SCH (04:53)
[2020-12-15] MEDS: INSULIN HUMULIN R 100 UNIT/ML 3ML SQ SCH ×8 (05:01→23:42)
[2020-12-15] MEDS: INSULIN GLARGINE 100 UNITS/ML 10 ML VIAL SQ SCH (07:39)
[2020-12-15] MEDS: PANTOPRAZOLE 40 MG/VIAL IVP SCH ×2 (07:48→20:23)
[2020-12-15] MEDS: DEXAMETHASONE SOD PHOSPHATE 4 MG/ML 1ML VIAL IVP SCH (07:49)
[2020-12-15] MEDS: VANCOMYCIN KIT 1 GM/250 ML IV.KIT IV SCH (07:53)
[2020-12-15] MEDS: 0.9% NACL 250ML 250 ML IV SCH ×2 (07:54→09:00)
[2020-12-15] MEDS: BALSAM PERU/CASTOR OIL 60 GM TUBE TP SCH ×3 (08:03→20:30)
[2020-12-15] MEDS: ARTIFICIAL TEARS 3.5 GM OINTMENT OD SCH ×4 (08:03→20:30)
[2020-12-15 08:38] LABS: ABG BASE EXCESS 0.9 mmol/L (-2.0-3.0); ABG HCO3 27.6 mmol/L (21.0-28.0); ABG OXYGEN SATURATION 85.2 % (95.0-99.0); ABG PCO2 55 mmHg (32-45)
[2020-12-15] MEDS: 0.9%NACL 100ML 100 ML IV SCH (09:00)
[2020-12-15] MEDS: FUROSEMIDE 20MG VIAL IV SCH ×2 (09:53→20:23)
[2020-12-15] MEDS: MIDAZOLAM 100MG-0.9% NS 100ML 100 ML IV SCH (12:57)
[2020-12-15] MEDS: CISATRACURIUM BESYLATE 100 MG in 0.9%NACL 100ML 90 ML IV PRN (21:30)
[2020-12-16] VITALS (37 sets, daily range): BP systolic 88–118; BP diastolic 43–71
[2020-12-16] MEDS: FENTANYL 2500MCG+NS 250ML 250 ML IV SCH (02:51)
[2020-12-16 03:48] LABS: ABG HCO3 25.5 mmol/L (21.0-28.0); ABG PCO2 52 mmHg (32-45)
[2020-12-16] MEDS: CISATRACURIUM BESYLATE 100 MG in 0.9%NACL 100ML 90 ML IV PRN ×3 (06:39→23:11)
[2020-12-16] MEDS: INSULIN HUMULIN R 100 UNIT/ML 3ML SQ SCH ×3 (06:40→17:00)
[2020-12-16 06:45] LABS: BASOPHILS % (AUTO) 0.5 % (0.0-5.0); EOSINOPHILS % (AUTO) 0.2 % (0.0-8.0); HEMATOCRIT 26.9 % (36-48); LYMPHOCYTES % (AUTO) 11.2 % (21.0-51.0); MEAN CORPUSCULAR HEMOGLOBIN 31.4 pg (27.0-33.0); MEAN CORPUSCULAR HGB CONC 30.5 g/dL (32.0-36.0); MEAN CORPUSCULAR VOLUME 103.1 fL (79-99); MONOCYTES % (AUTO) 2.9 % (3.0-13.0); NEUTROPHILS % (AUTO) 80.6 % (40.0-77.0); NUCLEATED RED BLOOD CELLS 24.2 % (0.0-0.19); PLATELET COUNT (AUTO) 45 K/uL (130-400); RED BLOOD CELL COUNT(AUTO) 2.61 MIL/uL (4.00-5.50); RED CELL DISTRIBUTION WIDTH 25.2 % (11.0-15.5); WHITE BLOOD COUNT (AUTO) 6.3 K/uL (4.8-10.8)
[2020-12-16 07:05] LABS: ALBUMIN 1.9 g/dL (3.5-5.0); BILIRUBIN,TOTAL 1.2 mg/dL (0.2-1.0); CREATININE 0.7 mg/dL (0.5-1.5); POTASSIUM 3.9 mmol/L (3.5-5.1); TOTAL PROTEIN, SERUM 4.6 g/dL (6.0-8.3)
[2020-12-16 07:39] LABS: BAND NEUTROPHILS % (MANUAL) 2 % (0-2); LYMPHOCYTES % (MANUAL) 3 % (22-44); MAN.DIFF COMMENT-IMPRESSION MANUAL DIFFERENTIAL; MONOCYTES % (MANUAL) 4 % (2-9); SEGMENTED NEUTROPHILS % 91 % (40-70)
[2020-12-16 07:42] LABS: PLATELET MORPHOLOGY COMMENT DECREASED
[2020-12-16] MEDS ORDERED: IODIXANOL 320 MG/ML 100 ML VIAL ONE (08:26)
[2020-12-16] MEDS ORDERED: HEPARIN 10,000 UNIT/10ML (1,000 UNIT/ML) VIAL ONE (08:26)
[2020-12-16] MEDS ORDERED: LIDOCAINE HCL 1% MDV 50ML VIAL ONE (08:26)
[2020-12-16] MEDS: 0.9%NACL 100ML 100 ML IV SCH (09:00)
[2020-12-16] MEDS: 0.9% NACL 250ML 250 ML IV SCH (09:00)
[2020-12-16] MEDS: DEXAMETHASONE SOD PHOSPHATE 4 MG/ML 1ML VIAL IVP SCH (10:27)
[2020-12-16] MEDS: FUROSEMIDE 20MG VIAL IV SCH ×2 (10:27→19:38)
[2020-12-16] MEDS: PANTOPRAZOLE 40 MG/VIAL IVP SCH ×2 (10:27→19:37)
[2020-12-16] MEDS: INSULIN GLARGINE 100 UNITS/ML 10 ML VIAL SQ SCH (10:28)
[2020-12-16] MEDS: ARTIFICIAL TEARS 3.5 GM OINTMENT OD SCH ×4 (10:29→19:39)
[2020-12-16] MEDS: BALSAM PERU/CASTOR OIL 60 GM TUBE TP SCH ×3 (10:29→19:39)
[2020-12-16] MEDS: MIDAZOLAM 100MG-0.9% NS 100ML 100 ML IV SCH (13:57)
[2020-12-16] MEDS ORDERED: VASOPRESSIN 20 UNITS in 0.9%NACL 100ML 100 ML IV SCH (20:00)
[2020-12-17] VITALS (92 sets, daily range): BP systolic 87–143; BP diastolic 32–68
[2020-12-17 03:36] LABS: ABG HCO3 25.6 mmol/L (21.0-28.0); ABG OXYGEN SATURATION 86.4 % (95.0-99.0); ABG PCO2 69 mmHg (32-45)
[2020-12-17 06:40] LABS: BASOPHILS % (AUTO) 0.5 % (0.0-5.0); HEMATOCRIT 25.3 % (36-48); LYMPHOCYTES % (AUTO) 12.2 % (21.0-51.0); MEAN CORPUSCULAR HEMOGLOBIN 32.8 pg (27.0-33.0); MEAN CORPUSCULAR HGB CONC 30.8 g/dL (32.0-36.0); MEAN CORPUSCULAR VOLUME 106.3 fL (79-99); MONOCYTES % (AUTO) 2.9 % (3.0-13.0); NEUTROPHILS % (AUTO) 81.4 % (40.0-77.0); NUCLEATED RED BLOOD CELLS 19.6 % (0.0-0.19); PLATELET COUNT (AUTO) 45 K/uL (130-400); RED BLOOD CELL COUNT(AUTO) 2.38 MIL/uL (4.00-5.50); RED CELL DISTRIBUTION WIDTH 25.7 % (11.0-15.5); WHITE BLOOD COUNT (AUTO) 7.6 K/uL (4.8-10.8)
[2020-12-17 07:01] LABS: ALBUMIN 1.8 g/dL (3.5-5.0); CREATININE 0.7 mg/dL (0.5-1.5); TOTAL PROTEIN, SERUM 4.4 g/dL (6.0-8.3)
[2020-12-17] MEDS: INSULIN HUMULIN R 100 UNIT/ML 3ML SQ SCH ×3 (07:34→17:33)
[2020-12-17] MEDS: INSULIN GLARGINE 100 UNITS/ML 10 ML VIAL SQ SCH (07:35)
[2020-12-17] MEDS: CISATRACURIUM BESYLATE IV PRN (07:55)
[2020-12-17] MEDS: NACL 0.9% IV PRN (07:55)
[2020-12-17] MEDS ORDERED: NOREPINEPHRIN 4MG/NS 250ML 250 ML IV SCH (09:00)
[2020-12-17] MEDS ORDERED: FUROSEMIDE 20MG VIAL IV SCH (09:00)
[2020-12-17] MEDS: DEXAMETHASONE SOD PHOSPHATE 4 MG/ML 1ML VIAL IVP SCH (09:10)
[2020-12-17] MEDS: PANTOPRAZOLE 40 MG/VIAL IVP SCH ×2 (09:11→21:17)
[2020-12-17] MEDS: ARTIFICIAL TEARS 3.5 GM OINTMENT OD SCH ×4 (09:11→21:14)
[2020-12-17] MEDS: BALSAM PERU/CASTOR OIL 60 GM TUBE TP SCH ×3 (09:11→21:14)
[2020-12-17] MEDS: NOREPINEPHRIN 4MG/NS 250ML 250 ML IV SCH ×2 (10:05→21:21)
[2020-12-17] MEDS: METOCLOPRAMIDE 10 MG/2 ML VIAL IVP SCH ×3 (12:16→23:51)
[2020-12-17] MEDS: MIDAZOLAM 100MG-0.9% NS 100ML 100 ML IV SCH (12:21)
[2020-12-17] MEDS: BUMETANIDE 2.5MG/10ML VIAL 40 ML IV SCH ×2 (12:45→22:54)
[2020-12-17] MEDS: VASOPRESSIN 40 UNITS in 0.9%NACL 50ML 40 ML IV SCH ×2 (13:00→13:11)
[2020-12-17] MEDS: FENTANYL 2500MCG+NS 250ML 250 ML IV SCH (21:26)
[2020-12-18] VITALS (48 sets, daily range): BP systolic 94–119; BP diastolic 49–64
[2020-12-18 03:40] LABS: ABG OXYGEN SATURATION 95.1 % (95.0-99.0); ABG PCO2 84 mmHg (32-45)
[2020-12-18] MEDS: METOCLOPRAMIDE 10 MG/2 ML VIAL IVP SCH ×4 (06:14→23:57)
[2020-12-18] MEDS: CISATRACURIUM BESYLATE IV PRN (06:15)
[2020-12-18] MEDS: NACL 0.9% IV PRN (06:15)
[2020-12-18 06:30] LABS: BASOPHILS % (AUTO) 0.7 % (0.0-5.0); EOSINOPHILS % (AUTO) 0.2 % (0.0-8.0); HEMATOCRIT 28.5 % (36-48); LYMPHOCYTES % (AUTO) 10.1 % (21.0-51.0); MEAN CORPUSCULAR HEMOGLOBIN 31.8 pg (27.0-33.0); MEAN CORPUSCULAR HGB CONC 29.8 g/dL (32.0-36.0); MEAN CORPUSCULAR VOLUME 106.7 fL (79-99); MONOCYTES % (AUTO) 2.7 % (3.0-13.0); NEUTROPHILS % (AUTO) 82.8 % (40.0-77.0); NUCLEATED RED BLOOD CELLS 23.3 % (0.0-0.19); PLATELET COUNT (AUTO) 50 K/uL (130-400); RED BLOOD CELL COUNT(AUTO) 2.67 MIL/uL (4.00-5.50); RED CELL DISTRIBUTION WIDTH 25.1 % (11.0-15.5)
[2020-12-18] MEDS: INSULIN HUMULIN R 100 UNIT/ML 3ML SQ SCH ×3 (06:39→17:53)
[2020-12-18 07:03] LABS: ALBUMIN 2.1 g/dL (3.5-5.0); BILIRUBIN,TOTAL 1.3 mg/dL (0.2-1.0); CREATININE 0.8 mg/dL (0.5-1.5); POTASSIUM 3.7 mmol/L (3.5-5.1); TOTAL PROTEIN, SERUM 4.8 g/dL (6.0-8.3)
[2020-12-18] MEDS ORDERED: CEFTAZIDIME PENTAHYDRATE 2 GM/VIAL IVP SCH (07:30)
[2020-12-18 08:52] LABS: BAND NEUTROPHILS % (MANUAL) 14 % (0-2); LYMPHOCYTES % (MANUAL) 6 % (22-44); MAN.DIFF COMMENT-IMPRESSION MANUAL DIFFERENTIAL; MONOCYTES % (MANUAL) 4 % (2-9); SEGMENTED NEUTROPHILS % 76 % (40-70)
[2020-12-18 08:54] LABS: PLATELET MORPHOLOGY COMMENT DECREASED
[2020-12-18] MEDS: DEXAMETHASONE SOD PHOSPHATE 4 MG/ML 1ML VIAL IVP SCH (09:08)
[2020-12-18] MEDS: CEFEPIME HCL 2 GM VIAL IVP SCH ×2 (09:09→21:18)
[2020-12-18] MEDS: PANTOPRAZOLE 40 MG/VIAL IVP SCH ×2 (09:09→21:18)
[2020-12-18] MEDS: INSULIN GLARGINE 100 UNITS/ML 10 ML VIAL SQ SCH (09:13)
[2020-12-18] MEDS: BALSAM PERU/CASTOR OIL 60 GM TUBE TP SCH ×3 (09:19→21:18)
[2020-12-18] MEDS: ARTIFICIAL TEARS 3.5 GM OINTMENT OD SCH ×4 (09:19→21:18)
[2020-12-18] MEDS: NOREPINEPHRIN 4MG/NS 250ML 250 ML IV SCH (14:00)
[2020-12-18] MEDS: VASOPRESSIN 40 UNITS in 0.9%NACL 50ML 40 ML IV SCH (14:03)
[2020-12-18] MEDS ORDERED: NOREPINEPHRIN 8MG/250ML NS PMX 250 ML IV ONE (22:13)
[2020-12-19] VITALS (36 sets, daily range): BP systolic 92–129; BP diastolic 31–90
[2020-12-19] MEDS ORDERED: DEXTROSE 50%-WATER 50 ML DISP.SYRIN IV ONE ×2 (02:56→11:10)
[2020-12-19 03:07] LABS: BASOPHILS % (AUTO) 0.6 % (0.0-5.0); EOSINOPHILS % (AUTO) 0.2 % (0.0-8.0); HEMATOCRIT 29.6 % (36-48); LYMPHOCYTES % (AUTO) 9.1 % (21.0-51.0); MEAN CORPUSCULAR HEMOGLOBIN 32.2 pg (27.0-33.0); MEAN CORPUSCULAR HGB CONC 29.7 g/dL (32.0-36.0); MEAN CORPUSCULAR VOLUME 108.4 fL (79-99); MONOCYTES % (AUTO) 1.6 % (3.0-13.0); NEUTROPHILS % (AUTO) 85.2 % (40.0-77.0); NUCLEATED RED BLOOD CELLS 24.2 % (0.0-0.19); PLATELET COUNT (AUTO) 44 K/uL (130-400); RED BLOOD CELL COUNT(AUTO) 2.73 MIL/uL (4.00-5.50); RED CELL DISTRIBUTION WIDTH 25.3 % (11.0-15.5); WHITE BLOOD COUNT (AUTO) 17.5 K/uL (4.8-10.8)
[2020-12-19 03:20] LABS: BILIRUBIN,TOTAL 1.5 mg/dL (0.2-1.0); CREATININE 1.1 mg/dL (0.5-1.5); POTASSIUM 3.6 mmol/L (3.5-5.1); TOTAL PROTEIN, SERUM 4.9 g/dL (6.0-8.3)
[2020-12-19 03:38] LABS: ABG BASE EXCESS -5.8 mmol/L (-2.0-3.0); ABG HCO3 24.7 mmol/L (21.0-28.0); ABG OXYGEN SATURATION 89.2 % (95.0-99.0); ABG PCO2 84 mmHg (32-45)
[2020-12-19] MEDS ORDERED: SODIUM BICARB 50MEQ 50ML VIAL IV ONE (04:00)
[2020-12-19] MEDS ORDERED: DEXTROSE 5%-WATER 1,000 ML IV SCH (04:00)
[2020-12-19] MEDS: POTASSIUM CHLORIDE 10% ELIXIR 20 MEQ/15 ML UDCUP PO PRN ×2 (05:34→07:42)
[2020-12-19] MEDS: METOCLOPRAMIDE 10 MG/2 ML VIAL IVP SCH ×3 (05:34→17:08)
[2020-12-19] MEDS: MIDAZOLAM 100MG-0.9% NS 100ML 100 ML IV SCH ×2 (06:28→15:26)
[2020-12-19] MEDS: INSULIN HUMULIN R 100 UNIT/ML 3ML SQ SCH ×3 (07:00→17:00)
[2020-12-19] MEDS ORDERED: FENTANYL 2500MCG+NS 250ML 250 ML IV ONE (07:36)
[2020-12-19] MEDS: INSULIN GLARGINE 100 UNITS/ML 10 ML VIAL SQ SCH (08:00)
[2020-12-19] MEDS ORDERED: FENTANYL 2500MCG+NS 250ML IV.SOLN IV SCH (08:00)
[2020-12-19] MEDS ORDERED: DEXMEDETOMIDINE 400MCG/NS100ML IV SCH (09:00)
[2020-12-19] MEDS: NOREPINEPHRINE 16MG/NS 250ML 250 ML IV SCH (10:24)
[2020-12-19] MEDS: PANTOPRAZOLE 40 MG/VIAL IVP SCH ×2 (10:54→20:44)
[2020-12-19] MEDS: DEXAMETHASONE SOD PHOSPHATE 4 MG/ML 1ML VIAL IVP SCH (10:54)
[2020-12-19] MEDS: CEFEPIME HCL 2 GM VIAL IVP SCH ×2 (10:54→20:44)
[2020-12-19] MEDS: ARTIFICIAL TEARS 3.5 GM OINTMENT OD SCH ×4 (10:55→20:45)
[2020-12-19] MEDS: BALSAM PERU/CASTOR OIL 60 GM TUBE TP SCH ×3 (10:55→20:45)
[2020-12-19] MEDS ORDERED: COMPOUND IV REFRIGERATED 1 EACH IVSOLN MISC PRN (13:30)
[2020-12-19] MEDS ORDERED: PHARMACY COMMUNICATION MISC SCH (13:30)
[2020-12-19] MEDS: SODIUM BICARB 50MEQ 50ML VIAL 150 MEQ in DEXTROSE 5%-WATER 1,000 ML IV SCH (13:43)
[2020-12-19] MEDS ORDERED: 0.9% NACL 500ML IV.SOLN 500 ML IV ONE (14:30)
[2020-12-19] MEDS: FENTANYL 2500MCG+NS 250ML 250 ML IV SCH (16:43)
[2020-12-19] MEDS: DEXTROSE 50%-WATER 50 ML DISP.SYRIN IV PRN (17:38)
[2020-12-20] VITALS (37 sets, daily range): BP systolic 16–141; BP diastolic 15–68
[2020-12-20] MEDS: DEXTROSE 50%-WATER 50 ML DISP.SYRIN IV PRN ×2 (00:43→13:06)
[2020-12-20] MEDS: METOCLOPRAMIDE 10 MG/2 ML VIAL IVP SCH ×3 (00:54→13:06)
[2020-12-20] MEDS: FENTANYL 2500MCG+NS 250ML 250 ML IV SCH ×2 (00:56→08:21)
[2020-12-20] MEDS: MIDAZOLAM 100MG-0.9% NS 100ML 100 ML IV SCH (00:57)
[2020-12-20 03:46] LABS: ABG BASE EXCESS -8.1 mmol/L (-2.0-3.0); ABG OXYGEN SATURATION 92.5 % (95.0-99.0); ABG PCO2 100 mmHg (32-45)
[2020-12-20] MEDS ORDERED: SODIUM BICARB 8.4% 50ML SYRINGE IVP SCH (04:30)
[2020-12-20 05:08] LABS: BASOPHILS % (AUTO) 0.6 % (0.0-5.0); EOSINOPHILS % (AUTO) 0.2 % (0.0-8.0); HEMATOCRIT 25.9 % (36-48); LYMPHOCYTES % (AUTO) 10.1 % (21.0-51.0); MEAN CORPUSCULAR HEMOGLOBIN 32.1 pg (27.0-33.0); MEAN CORPUSCULAR VOLUME 110.7 fL (79-99); MONOCYTES % (AUTO) 1.8 % (3.0-13.0); NEUTROPHILS % (AUTO) 83.3 % (40.0-77.0); NUCLEATED RED BLOOD CELLS 19.1 % (0.0-0.19); PLATELET COUNT (AUTO) 32 K/uL (130-400); RED BLOOD CELL COUNT(AUTO) 2.34 MIL/uL (4.00-5.50); RED CELL DISTRIBUTION WIDTH 26.2 % (11.0-15.5)
[2020-12-20] MEDS: INSULIN HUMULIN R 100 UNIT/ML 3ML SQ SCH ×2 (05:11→11:30)
[2020-12-20] MEDS: SODIUM BICARB 50MEQ 50ML VIAL 150 MEQ in DEXTROSE 5%-WATER 1,000 ML IV SCH (05:11)
[2020-12-20 05:22] LABS: ALBUMIN 1.6 g/dL (3.5-5.0); BILIRUBIN,TOTAL 1.1 mg/dL (0.2-1.0); CREATININE 1.3 mg/dL (0.5-1.5); MAGNESIUM 2.2 mg/dL (1.80-2.40); POTASSIUM 4.3 mmol/L (3.5-5.1); TOTAL PROTEIN, SERUM 4.3 g/dL (6.0-8.3)
[2020-12-20 05:50] LABS: BAND NEUTROPHILS % (MANUAL) 18 % (0-2); LYMPHOCYTES % (MANUAL) 2 % (22-44); MAN.DIFF COMMENT-IMPRESSION MANUAL DIFFERENTIAL; METAMYELOCYTES % 1 % (0-0); SEGMENTED NEUTROPHILS % 79 % (40-70)
[2020-12-20] MEDS ORDERED: FUROSEMIDE 40MG VIAL IV ONE (07:30)
[2020-12-20] MEDS ORDERED: 0.9% NACL 500ML IV.SOLN 500 ML IV SCH (07:30)
[2020-12-20] MEDS: CEFEPIME HCL 2 GM VIAL IVP SCH (08:35)
[2020-12-20] MEDS: DEXAMETHASONE SOD PHOSPHATE 4 MG/ML 1ML VIAL IVP SCH (08:35)
[2020-12-20] MEDS: PANTOPRAZOLE 40 MG/VIAL IVP SCH (08:35)
[2020-12-20] MEDS: BALSAM PERU/CASTOR OIL 60 GM TUBE TP SCH ×2 (08:41→13:07)
[2020-12-20] MEDS: ARTIFICIAL TEARS 3.5 GM OINTMENT OD SCH ×2 (08:42→13:08)
[2020-12-20] MEDS ORDERED: FENTANYL 2500MCG+NS 250ML 250 ML IV SCH (09:00)
[2020-12-20] MEDS ORDERED: SODIUM HYPOCHLORITE 0.125% 473 ML SOLUTION TP SCH (09:00)
[2020-12-20] MEDS: NOREPINEPHRINE 16MG/NS 250ML 250 ML IV SCH (11:40)
== END 2020-12-20 13:53 | DRG 5 ==
LOC: EDH 12:54 → EDHIP 12:55 → 4AH 10-01 01:12 → 2AH 10-05 02:50 → 2CV 10-24 05:23 → 2AH 11-21 14:18 → 2BH 11-28 18:42
PROVIDERS: ADMIT Internal Medicine; ATTEND Internal Medicine
PROC: XW0DXM6 Introduction of Baricitinib into Mouth and Pharynx, External Approach, New Technology Group 6 (ICD-10-PCS; 2020-09-29)
PROC: XW033E5 Introduction of Remdesivir Anti-infective into Peripheral Vein, Percutaneous Approach, New Technology Group 5 (ICD-10-PCS; 2020-09-30)
PROC: 5A09457 Assistance with Respiratory Ventilation, 24-96 Consecutive Hours, Continuous Positive Airway Pressure (ICD-10-PCS; 2020-10-05)
PROC: 5A09357 Assistance with Respiratory Ventilation, Less than 24 Consecutive Hours, Continuous Positive Airway Pressure (ICD-10-PCS; 2020-10-07)
PROC: 5A09357 Assistance with Respiratory Ventilation, Less than 24 Consecutive Hours, Continuous Positive Airway Pressure (ICD-10-PCS; 2020-10-08)
PROC: 5A09357 Assistance with Respiratory Ventilation, Less than 24 Consecutive Hours, Continuous Positive Airway Pressure (ICD-10-PCS; 2020-10-09)
PROC: 5A09357 Assistance with Respiratory Ventilation, Less than 24 Consecutive Hours, Continuous Positive Airway Pressure (ICD-10-PCS; 2020-10-10)
PROC: 5A09357 Assistance with Respiratory Ventilation, Less than 24 Consecutive Hours, Continuous Positive Airway Pressure (ICD-10-PCS; 2020-10-11)
PROC: 5A09357 Assistance with Respiratory Ventilation, Less than 24 Consecutive Hours, Continuous Positive Airway Pressure (ICD-10-PCS; 2020-10-12)
PROC: 5A09457 Assistance with Respiratory Ventilation, 24-96 Consecutive Hours, Continuous Positive Airway Pressure (ICD-10-PCS; 2020-10-12)
PROC: 5A09357 Assistance with Respiratory Ventilation, Less than 24 Consecutive Hours, Continuous Positive Airway Pressure (ICD-10-PCS; 2020-10-14)
PROC: 5A0935A Assistance with Respiratory Ventilation, Less than 24 Consecutive Hours, High Flow/Velocity Cannula (ICD-10-PCS; 2020-10-14)
PROC: 5A09357 Assistance with Respiratory Ventilation, Less than 24 Consecutive Hours, Continuous Positive Airway Pressure (ICD-10-PCS; 2020-10-15)
PROC: 5A0935A Assistance with Respiratory Ventilation, Less than 24 Consecutive Hours, High Flow/Velocity Cannula (ICD-10-PCS; 2020-10-15)
PROC: 5A09457 Assistance with Respiratory Ventilation, 24-96 Consecutive Hours, Continuous Positive Airway Pressure (ICD-10-PCS; 2020-10-18)
PROC: 5A0935A Assistance with Respiratory Ventilation, Less than 24 Consecutive Hours, High Flow/Velocity Cannula (ICD-10-PCS; 2020-10-18)
PROC: 5A0935A Assistance with Respiratory Ventilation, Less than 24 Consecutive Hours, High Flow/Velocity Cannula (ICD-10-PCS; 2020-10-19)
PROC: 05HM33Z Insertion of Infusion Device into Right Internal Jugular Vein, Percutaneous Approach (ICD-10-PCS; 2020-10-22)
PROC: 5A1955Z Respiratory Ventilation, Greater than 96 Consecutive Hours (ICD-10-PCS; 2020-10-22)
PROC: 0BH17EZ Insertion of Endotracheal Airway into Trachea, Via Natural or Artificial Opening (ICD-10-PCS; 2020-10-22)
PROC: 05HM33Z Insertion of Infusion Device into Right Internal Jugular Vein, Percutaneous Approach (ICD-10-PCS; 2020-11-09)
PROC: B543ZZA Ultrasonography of Right Jugular Veins, Guidance (ICD-10-PCS; 2020-11-09)
PROC: B543ZZA Ultrasonography of Right Jugular Veins, Guidance (ICD-10-PCS; 2020-11-09)
PROC: 0B113F4 Bypass Trachea to Cutaneous with Tracheostomy Device, Percutaneous Approach (ICD-10-PCS; 2020-11-11)
PROC: 0DH63UZ Insertion of Feeding Device into Stomach, Percutaneous Approach (ICD-10-PCS; 2020-11-11)
PROC: 30233N1 Transfusion of Nonautologous Red Blood Cells into Peripheral Vein, Percutaneous Approach (ICD-10-PCS; 2020-11-25)
PROC: 0W9930Z Drainage of Right Pleural Cavity with Drainage Device, Percutaneous Approach (ICD-10-PCS; 2020-12-13)
PROC: 03HY32Z Insertion of Monitoring Device into Upper Artery, Percutaneous Approach (ICD-10-PCS; 2020-12-13)
PROC: 06H03DZ Insertion of Intraluminal Device into Inferior Vena Cava, Percutaneous Approach (ICD-10-PCS; principal; 2020-12-16)
PROC: 0BH17EZ Insertion of Endotracheal Airway into Trachea, Via Natural or Artificial Opening (ICD-10-PCS; 2020-12-17)
PROC: 5A1945Z Respiratory Ventilation, 24-96 Consecutive Hours (ICD-10-PCS; 2020-12-17)
DX: A41.89 Other specified sepsis (principal); U07.1 COVID-19; R65.21 Severe sepsis with septic shock; J15.0 Pneumonia due to Klebsiella pneumoniae; D84.9 Immunodeficiency, unspecified; E87.3 Alkalosis; G93.40 Encephalopathy, unspecified; J18.9 Pneumonia, unspecified organism; L89.312 Pressure ulcer of right buttock, stage 2; J80 Acute respiratory distress syndrome; D68.59 Other primary thrombophilia; E11.22 Type 2 diabetes mellitus with diabetic chronic kidney disease; D69.6 Thrombocytopenia, unspecified; E66.01 Morbid (severe) obesity due to excess calories; I82.412 Acute embolism and thrombosis of left femoral vein; E87.0 Hyperosmolality and hypernatremia; I82.432 Acute embolism and thrombosis of left popliteal vein; E87.5 Hyperkalemia; I82.612 Acute embolism and thrombosis of superficial veins of left upper extremity; I82.4Z1 Acute embolism and thrombosis of unspecified deep veins of right distal lower extremity; Z68.42 Body mass index [BMI] 45.0-49.9, adult; J12.82 Pneumonia due to coronavirus disease 2019; E87.6 Hypokalemia; N39.0 Urinary tract infection, site not specified; B95.2 Enterococcus as the cause of diseases classified elsewhere; J93.83 Other pneumothorax; F32.9 Major depressive disorder, single episode, unspecified; B96.89 Other specified bacterial agents as the cause of diseases classified elsewhere; C50.919 Malignant neoplasm of unspecified site of unspecified female breast; D53.9 Nutritional anemia, unspecified; E86.1 Hypovolemia; E87.1 Hypo-osmolality and hyponatremia; F41.9 Anxiety disorder, unspecified; G83.9 Paralytic syndrome, unspecified; I13.10 Hypertensive heart and chronic kidney disease without heart failure, with stage 1 through stage 4 chronic kidney disease, or unspecified chronic kidney disease; J44.0 Chronic obstructive pulmonary disease with (acute) lower respiratory infection; K59.00 Constipation, unspecified; K92.2 Gastrointestinal hemorrhage, unspecified; L89.322 Pressure ulcer of left buttock, stage 2; N17.9 Acute kidney failure, unspecified; N18.9 Chronic kidney disease, unspecified; R13.12 Dysphagia, oropharyngeal phase; R63.39 Other feeding difficulties; Y95 Nosocomial condition; Z16.24 Resistance to multiple antibiotics; Z66 Do not resuscitate; Z74.01 Bed confinement status; Z79.4 Long term (current) use of insulin; Z85.3 Personal history of malignant neoplasm of breast
CPT/HCPCS: 31500; 31624; 36415; 36430; 36556; 36600; 37191; 43246; 70450; 71045; 74018; 76705; 76770; 80048; 80053; 80061; 80076; 80202; 81001; 82140; 82150; 82270; 82306; 82435; 82550; 82607; 82728; 82746; 82803; 82947; 82948; 83036; 83540; 83550; 83605; 83615; 83630; 83690; 83735; 83874; 83880; 84100; 84132; 84145; 84260; 84295; 84439; 84443; 84478; 84481; 84484; 85014; 85018; 85025; 85027; 85045; 85378; 85384; 85610; 85730; 86022; 86140; 86606; 86612; 86635; 86698; 86850; 86900; 86901; 86923; 87040; 87046; 87070; 87071; 87076; 87077; 87088; 87186; 87205; 87324; 87635; 92950; 93005; 93306; 93970; 94002; 94003; 94640; 94660; 94667; 94760; A4330; A4344; A4606; A7048; C1751; C1769; C1894; C9113; G0378; J0461; J0610; J0692; J0696; J0713; J1100; J1450; J1644; J1650; J1652; J1720; J1815; J1940; J2020; J2185; J2248; J2250; J2370; J2543; J2704; J2765; J2920; J2997; J3010; J3370; J3420; J3475; J3480; J3490; J7030; J7040; J7050; J7070; J7120; P9016; P9034; P9045; P9047; Q9967